=== PATIENT | female | born 1990 | race Caucasian/White ===

== ENCOUNTER 2019-10-02 18:33 | Emergency (ER) | payer OTHER, SELFPAY ==
--- NOTE | ~2019-10-02 | CT_ITS ---
EXAMINATION: CT abdomen pelvis wo con EXAM DATE: 10/02/2019 22:14 INDICATION: Low abdominal, flank pain. TECHNIQUE: Spiral CT of the abdomen and pelvis was performed without contrast. Axial, coronal and sag ittal images were reviewed. The dose-length product (DLP) for this examination was 224.70 mGy-cm. T he exposure was tailored according to patient size (auto mA exposure control), and iterative reconstr uction (ASIR) was used as additional dose reduction technique. There is no prior study for compariso n. FINDINGS: There is no nephrolithiasis or hydronephrosis. The uterus is unremarkable. There is a 4 c m left adnexal lesion, could be hemorrhagic cyst. Consider 6 week follow-up pelvic sonogram. The rene dder is unremarkable. The liver, spleen, adrenal glands and pancreas are unremarkable. Gallbladder is unremarkable. No biliary obstruction. There is no retroperitoneal or pelvic lymphadenopathy. The appendix is normal. The stomach and small bowel are unremarkable. There is expected amount of c olonic stool. No free intraperitoneal gas. The heart is normal in size. There are no pericardial or pleural effusions. The lung bases are unremarkable. The bones are unremarkable. IMPRESSION: 1. No nephrolithiasis, hydronephrosis or acute intra-abdominal findings. 2. Left adnexal fluid density lesion, could be hemorrhagic cyst. Consider 6 week follow-up pelvic so nogram. Reviewed, dictated and finalized at location A. ERAGE SHOP SUPERVISOR IMPRESSION: 1. No nephrolithiasis, hydronephrosis or acute intra-abdominal findings. 2. Left adnexal fluid density lesion, could be hemorrhagic cyst. Consider 6 we ek follow-up pelvic sonogram.
[2019-10-02 18:59] VITALS: BP 144/86; PULSE 102; RESP 16; TEMP 37.4; O2SAT 100
[2019-10-02 20:40] VITALS: BP 126/101; PULSE 108; RESP 20; O2SAT 99
[2019-10-02 21:03] LABS: Basophils Percent Auto 0.4 % (0.2-1.2); Hematocrit 35.3 % (37.0-47.0); Hemoglobin 12.3 g/dL (12.0-15.0); Immature Granulocyte Absolute 0.01 K/mm3 (0.00-0.031); Immature Granulocyte Percent A 0.1 % (0-0.5); Lymphocytes Absolute Auto 1.33 K/mm3 (0.9-3.2); Lymphocytes Percent Auto 18.8 % (18.3-44.2); Mean Corpuscular HGB Conc 34.8 g/dl (32-36); Mean Corpuscular Hemoglobin 33.8 pg (26-34); Mean Platelet Volume 9.4 fl (7.4-10.4); Monocytes Absolute Auto 0.5 K/mm3 (0.1-0.6); Monocytes Percent Auto 7.6 % (2.6-8.5); Neutrophils Absolute Auto 5.2 K/mm3 (1.3-6.7); Neutrophils Percent Auto 73.1 % (45.5-73.1); Platelet Count Result 187 k/mm3 (150-375); Red Blood Count 3.64 M/mm3 (4.2-5.4); Red Cell Distribution Width 12.1 % (11.5-14.5); White Blood Count 7.1 K/mm3 (4.5-10.0)
--- NOTE | 2019-10-02 21:05 | ED.ABDPAIN ---
HPI - Abdominal Pain General Chief Complaint: Abdominal Pain Stated Complaint: mult complaints, dizzy, light headed Time Seen by Provider: 10/02/19 20:54 Source: patient and RN notes reviewed Mode of arrival: ambulatory Limitations: no limitations History of Present Illness HPI narrative: Pt is a 29 y/o female presenting to the ED c/o ABD pain. Pt reports she started experiencing diffuse abdominal pain. Pt describes the pain as sharp and notes it is worsened with movement. Pt also reports dysuria and lt hip pain, but denies N/V or fever. Pt notes she has recurrent UTI's and notes she currently has a lt sided ovarian cyst in which she is scheduled to follow up with Gynecology for. Pertinent past history: other (Lt sided ovarian cyst) Onset (ago): unknown (This afternoon) Location: diffuse Quality: sharp Associated symptoms: dysuria and other (Lt hip pain) Related Data Allergies Allergy/AdvReac Type Severity Reaction Status Date / Time amoxicillin AdvReac Palpitation Verified 10/02/19 20:44 s erythromycin base AdvReac Palpitation Verified 10/02/19 20:44 s Review of Systems Review of Systems: All systems reviewed & are unremarkable except as noted in HPI and below Constitutional: Constitutional: Denies fever(s) Gastrointestinal: Gastrointestinal: Reports abdominal pain (Diffuse), Denies nausea and Denies vomiting Genitourinary: Genitourinary: Reports dysuria Musculoskeletal: Musculoskeletal: Reports other (Lt hip pain) PMFSH Past Medical History Medical History Ovarian cyst, left UTI (urinary tract infection) Surgical History Surgical History No significant past surgical history Social History Social History Smoking status: Unknown if ever smoked Gender identity (if verbalized by the patient): Female Exam Narrative: Exam Narrative: GENERAL: Well-appearing, well-nourished, and in no acute distress. HEAD: Normocephalic, atraumatic. EYES: PERRLA and EOMI. ENT: Nares clear, . Mucous membranes moist. NECK: Supple. CHEST: Clear to auscultation. No respiratory distress. HEART: Regular rate and rhythm. No murmur heard. Normal peripheral pulses. ABDOMEN: Soft, tender in the supra pubic area , non distended, normal active bowel sounds. EXTREMITIES: Normal range of motion. No edema. SKIN: Warm, dry, no rash. NEURO: No focal deficits. Alert and oriented x3. PSYCH: Normal mood and affect. Course Course Emergency Course: Inform patient about her lab work, CT findings. Patient appears to be having chronic interstitial cystitis however she has not been diagnosed. She states that she scheduled to see a urologist in the next few days. She also complains of intermittent vaginal spotting advised her to follow-up with her CREAM BEATER in the next few days. Meanwhile I advised her to take antibiotic for her urinary tract infection Vital Signs Vital signs: Vital Signs Temperature 37.4 C 10/02/19 18:59 Pulse Rate 102 H 10/02/19 18:59 Respiratory Rate 16 10/02/19 18:59 Blood Pressure 144/86 H 10/02/19 18:59 Pulse Oximetry 100 10/02/19 18:59 Temperature 37.4 C 10/02/19 18:59 Pulse Rate 108 H 10/02/19 20:40 Respiratory Rate 20 10/02/19 20:40 Blood Pressure 126/101 H 10/02/19 20:40 Pulse Oximetry 99 10/02/19 20:40 MDM - Abdominal Pain Lab Data Result diagrams: 10/02/19 20:56 10/02/19 20:56 Labs: Lab Results 10/02/19 10/02/19 10/02/19 Range/Units 20:56 20:56 21:09 WBC 7.1 (4.5-10.0) K/mm3 RBC 3.64 L (4.2-5.4) M/mm3 Hgb 12.3 (12.0-15.0) g/dL Hct 35.3 L (37.0-47.0) % MCV 97.0 (80-100) fl MCH 33.8 (26-34) pg MCHC 34.8 (32-36) g/dl RDW 12.1 (11.5-14.5) % Plt Count 187 (150-375) k/mm3 MPV 9.4 (7.4-10.4) fl Immature Gran % (Auto) 0.1 (0-0.5) % Neut % (Auto) 73.
[2019-10-02 21:13] LABS: Alanine Aminotransferase 14 U/L (4-35); Albumin Level 4.2 g/dL (3.5-5.1); Alkaline Phosphatase 38 U/L (38-126); Aspartate Amino Transferase 26 U/L (14-36); Bilirubin,Total 0.6 mg/dL (0.2-1.3); Blood Urea Nitrogen 9 mg/dL (7-17); Calcium 8.9 mg/dL (8.4-10.2); Carbon Dioxide 24 mmol/L (22-30); Chloride 105 mmol/L (98-107); Estimated CRCL calculation 68 ml/min; Estimated Glomerular Filt Rate > 60; Glucose 95 mg/dL (65-105); Potassium 3.5 mmol/L (3.4-5.0); Sodium 132 mmol/L (137-145)
[2019-10-02 21:29] LABS: Add Urine Microscopic? YES; Appearance Urine Cloudy (Clear); Bilirubin Urine Negative (Negative); Blood Urine 3+ (Negative); Calcium Oxalate Crystals Urine Present /hpf; Color Urine Yellow (Yellow); Glucose Urine UA Negative (Negative); Ketones Urine 1+ mg/dL (Negative); Leukocyte Esterase Ur 1+ LEU/UL (Negative); Mucus Urine Heavy /lpf; Nitrate Urine Negative (Negative); Protein Urine 2+ mg/dL (Negative); RBC Urine >75 /hpf (0-2); Specific Grav Ur 1.029 (1.001-1.035); Squamous Epithelial Cell Urine Many /hpf (Few); Urobilinogen Urine Negative mg/dL (<2.0); WBC Clumps Urine Present /HPF; WBC Urine >75 /hpf
[2019-10-02 23:11] VITALS: BP 130/70; PULSE 104; RESP 16; O2SAT 99
== END 2019-10-02 23:13 | disposition home or self-care (01) ==
PROVIDERS: Emergency Medicine; Emergency Provider Family Medicine
DX: N30.01 Acute cystitis with hematuria (principal)
CPT/HCPCS: 36415; 74176; 80053; 81001; 81025; 85025; 87086; 87088; 99284

== ENCOUNTER 2021-01-17 16:44 | Emergency (ER) | payer OTHER, SELFPAY ==
--- NOTE | ~2021-01-17 | US_ITS ---
EXAMINATION: US pelvic complete w TV DATE: 01/17/2021 17:26 INDICATION: Abdominal pain. TECHNIQUE: Multiple transabdominal and transvaginal sonographic images of the pelvis were obtained. COMPARISON: CT abdomen and pelvis 10/02/2019 FINDINGS: TRANSABDOMINAL ULTRASOUND: The uterus measures 5.6 x 2.8 x 3.7 cm. There is no free fluid in the pelvis. TRANSVAGINAL ULTRASOUND: The endometrial complex measures 8 mm in thickness. The right ovary measures 4.8 x 3.2 x 2.8 cm. Ther e are 2 cysts in the right ovary with the larger measuring 3.1 cm. The left ovary measures 1.7 x 1.3 x 1.4 cm. There is normal vascular flow in the ovaries. IMPRESSION: 1. Right ovarian cysts, likely follicular cysts. Reviewed, dictated and finalized at location A.
[2021-01-17 16:51] VITALS: BP 131/96; PULSE 117; RESP 14; TEMP 38; O2SAT 100
[2021-01-17 17:12] LABS: Basophils Percent Auto 0.3 % (0.2-1.2); Eosinophils Percent Auto 0.3 % (0-4.4); Hematocrit 39.8 % (37.0-47.0); Hemoglobin 13.5 g/dL (12.0-15.0); Immature Granulocyte Absolute 0.02 K/mm3 (0.00-0.031); Immature Granulocyte Percent A 0.3 % (0-0.5); Lymphocytes Absolute Auto 2.37 K/mm3 (0.9-3.2); Lymphocytes Percent Auto 34.7 % (18.3-44.2); Mean Corpuscular HGB Conc 33.9 g/dl (32-36); Mean Corpuscular Hemoglobin 33.8 pg (26-34); Mean Corpuscular Volume 99.5 fl (80-100); Mean Platelet Volume 8.9 fl (7.4-10.4); Monocytes Absolute Auto 0.6 K/mm3 (0.1-0.6); Monocytes Percent Auto 8.1 % (2.6-8.5); Neutrophils Absolute Auto 3.9 K/mm3 (1.3-6.7); Neutrophils Percent Auto 56.3 % (45.5-73.1); Platelet Count Result 209 k/mm3 (150-375); Red Cell Distribution Width 12.4 % (11.5-14.5); White Blood Count 6.8 K/mm3 (4.5-10.0)
[2021-01-17 17:25] LABS: Alanine Aminotransferase 14 U/L (4-35); Albumin Level 4.5 g/dL (3.5-5.1); Alkaline Phosphatase 38 U/L (38-126); Anion Gap 7 mmol/L (8-16); Aspartate Amino Transferase 23 U/L (14-36); Bilirubin,Total 0.5 mg/dL (0.2-1.3); Blood Urea Nitrogen 9 mg/dL (7-17); Calcium 9.4 mg/dL (8.4-10.2); Carbon Dioxide 25 mmol/L (22-30); Chloride 108 mmol/L (98-107); Estimated CRCL calculation 70 ml/min; Estimated Glomerular Filt Rate > 60; Glucose 95 mg/dL (65-105); Lipase 69 U/L (23-300); Potassium 3.8 mmol/L (3.4-5.0); Sodium 140 mmol/L (137-145)
[2021-01-17 17:42] LABS: Add Urine Microscopic? YES; Appearance Urine Clear (Clear); Bilirubin Urine Negative (Negative); Blood Urine Negative (Negative); Color Urine Yellow (Yellow); Glucose Urine UA Negative (Negative); Ketones Urine 1+ mg/dL (Negative); Leukocyte Esterase Ur 2+ LEU/UL (Negative); Mucus Urine Few /lpf; Nitrate Urine Negative (Negative); Protein Urine Negative (Negative); RBC Urine 0-2 /hpf (0-2); Squamous Epithelial Cell Urine Few /hpf (Few); Urobilinogen Urine Negative mg/dL (<2.0)
[2021-01-17 19:35] VITALS: BP 141/91; PULSE 89; RESP 13; TEMP 36.9; O2SAT 98
--- NOTE | 2021-01-17 19:37 | ED.ABDPAIN ---
HPI - Abdominal Pain General Chief Complaint: Abdominal Pain Stated Complaint: Abd Pain Time Seen by Provider: 01/17/21 19:20 Source: patient Mode of arrival: ambulatory Limitations: no limitations History of Present Illness HPI narrative: Patient is a 30-year-old female complaining of right lower quadrant pain that started 3 days ago. Patient states her pain is a 6 out of 10, aching, nonradiating. Patient was seen at another hospital yesterday had labs and CT scan of her abdomen pelvis done, was told that she had an ovarian cyst and she is to follow-up with her MACHINE PRESSER for an ultrasound. Patient was presscribed hydrocodone for pain. Patient called her GYROSCOPE TECHNICIAN today and was told to go to the emergency room to have an ultrasound done for possible hemorrhagic cyst , which the patient states that she has a history of. Related Data Home Medications Medication Instructions Recorded Confirmed No Home Medications 01/17/21 01/17/21 Allergies Allergy/AdvReac Type Severity Reaction Status Date / Time amoxicillin AdvReac Palpitation Verified 01/17/21 19:53 s erythromycin base AdvReac Palpitation Verified 01/17/21 19:53 s Review of Systems Review of Systems: All systems reviewed & are unremarkable except as noted in HPI and below Constitutional: Constitutional: Denies body ache(s), Denies chills, Denies excessive sweating, Denies fatigue, Denies fever(s), Denies headache(s), Denies lethargy, Denies malaise, Denies weakness and Denies weight loss Eyes: Eyes: Denies blurry vision, Denies change in vision and Denies loss of vision ENT: Denies dizziness, Denies ear discharge, Denies headache(s), Denies lip swelling, Denies epistaxis, Denies nasal congestion, Denies neck pain, Denies throat swelling and Denies tongue swelling Cardiovascular: Cardiovascular: Denies chest pain, Denies chest pain at rest, Denies chest pain with activity, Denies diaphoresis, Denies rapid heart rate, Denies edema, Denies irregular heart rhythm, Denies lightheadedness, Denies palpitations, Denies dyspnea and Denies dyspnea on exertion Respiratory: Respiratory: Denies chest congestion, Denies cough, Denies hemoptysis, Denies dyspnea and Denies dyspnea on exertion Gastrointestinal: Gastrointestinal: Denies abdominal pain, Denies melena, Denies hematochezia, Denies diarrhea, Denies nausea, Denies vomiting and Denies hematemesis Musculoskeletal: Musculoskeletal: Denies abnormal gait, Denies deformity, Denies joint swelling, Denies limited range of motion, Denies neck pain and Denies numbness Neurologic: Denies Abnormal speech present, Denies abnormal gait, Denies confusion, Denies dizziness, Denies headache(s), Denies focal weakness, Denies loss of vision, Denies numbness, Denies Other visual disturbances, Denies Sensory deficit (Neuro) and Denies weakness Psychiatric: Psychiatric: Denies confusion, Denies depression, Denies auditory hallucinations, Denies homicidal ideation and Denies suicidal ideation Endocrine: Endocrine: Denies cold intolerance, Denies excessive sweating, Denies fatigue, Denies heat intolerance and Denies palpitations Hematologic/Lymphatic: Hematologic/Lymphatic: Denies easy bleeding and Denies easy bruising Allergic/Immunologic: Allergic/Immunologic: Denies lip swelling, Denies throat swelling and Denies tongue swelling PMFSH Past Medical History Medical History Anxiety Arthritis Congestion of nasal sinus Diarrhea History of hysteroscopy Intractable heel pain Ovarian cyst, left Seasonal allergies SVT (supraventricular tachycardia) UTI (urinary tract infection) Wears glasses Surgical History Surgical History History of foot surgery bilateral shockwave tx, 2017 History of laparoscopy 2019, 2020 History of prior ablation treatment AVRNT and Atrial Flutter 2015 Family History Family History (Reviewed 01/17/21 @
[2021-01-17 20:06] LABS: Lactic Acid Reflex 0.7 mmol/L (0.7-2.1)
[2021-01-17 20:46] VITALS: BP 114/75; PULSE 95; RESP 13; O2SAT 100
== END 2021-01-17 20:47 | disposition home or self-care (01) ==
PROVIDERS: Emergency Medicine; Emergency Provider Emergency Medicine
DX: N83.201 Unspecified ovarian cyst, right side (principal); Z87.440 Personal history of urinary (tract) infections
CPT/HCPCS: 36415; 76830; 76856; 80053; 81001; 81025; 83605; 83690; 85025; 99284

== ENCOUNTER 2021-02-07 15:46 | Emergency (ER) | payer OTHER, SELFPAY ==
--- NOTE | ~2021-02-07 | CT_ITS ---
EXAMINATION: CT foot LT wo con EXAM DATE: 02/07/2021 17:20 INDICATION: Left foot and ankle large pain, tingling. Unable to weight-bear, flex. No known recent in jury provided at this time. TECHNIQUE: Spiral CT foot LT was performed without contrast. Axial, coronal and sagittal images wer e reviewed. The dose-length product (DLP) for this examination was 449.82 mGy-cm. The exposure was tailored according to patient size (auto mA exposure control), and iterative reconstruction (ASIR) wa s used as additional dose reduction technique. There is no prior study for comparison. FINDINGS: Ankle, subtalar and midfoot joints are unremarkable. There are no bony erosions identified . There are no acute left ankle, foot fractures or dislocations identified. There is no subcutaneo us gas. The soft tissue is unremarkable, no evidence of abscess. There are no radiopaque foreign b odies. Impression: Unremarkable left foot CT exam. Reviewed, dictated and finalized at location A. Impression: Unremarkable left foot CT exam.
[2021-02-07 16:12] VITALS: BP 148/94; PULSE 111; RESP 20; TEMP 37.4; O2SAT 100
--- NOTE | 2021-02-07 18:00 | PC.NURSE ---
Pt independently ambulating to nurse's desk, stating that she is unable to bear weight on left foot. Asking for MRI to be done today, explained that is not able to be performed at this time. Pt asking same question multiple times regarding MRI.
--- NOTE | 2021-02-07 18:04 | ED.LOWEXIN ---
HPI - Extremity Injury (Lower) General Chief Complaint: Extremity Injury, Lower Stated Complaint: foot pain Time Seen by Provider: 02/07/21 16:20 History of Present Illness HPI Narrative: Patient is a 30-year-old female who presents ER with left foot pain. It is over the medial malleolus posteriorly as well as over the metatarsal heads plantar aspect. No recent injury. Has been hurting for several months. She saw reinforcing metal worker and then followed up with orthopedic surgery. Patient made the mistake of canceling her MRI because she wanted it to be ordered by the orthopedic foot surgeon and so the reinforcing metal worker. Apparently the orthopedic surgeon was only providing a second opinion not an actual treatment plan which changes how insurance covers things. Thus she is missed scheduled her MRI and is later this month. Patient does not want to wait for this MRI because she reports her pain is continuing to increase. Her reinforcing metal worker recommend she come here to obtain a CT scan to make sure there are no additional fractures have not been seen on x-ray. Patient has no new fevers or chills or sweats. No new trauma. No functional deficit but does get some numbness when she crosses her leg. Related Data Allergies Allergy/AdvReac Type Severity Reaction Status Date / Time amoxicillin AdvReac Palpitation Verified 02/07/21 16:40 s erythromycin base AdvReac Palpitation Verified 02/07/21 16:40 s Review of Systems Review of Systems: All systems reviewed & are unremarkable except as noted in HPI and below Constitutional: Constitutional: Denies chills, Denies fever(s) and Denies weakness Musculoskeletal: Musculoskeletal: Denies arthralgias, Denies joint swelling and Denies muscle cramps Neurologic: Denies focal weakness and Reports numbness PMFSH Past Medical History Medical History Anxiety Arthritis Congestion of nasal sinus Diarrhea History of hysteroscopy Intractable heel pain Ovarian cyst, left Seasonal allergies SVT (supraventricular tachycardia) UTI (urinary tract infection) Wears glasses Surgical History Surgical History History of foot surgery bilateral shockwave tx, 2017 History of laparoscopy 2019, 2020 History of prior ablation treatment AVRNT and Atrial Flutter 2015 Family History Family History Other Arthritis Social History Social History Smoking status: Never smoker Alcohol intake: never Substance use: never Substance use type: does not use Gender identity (if verbalized by the patient): Female Exam Narrative: Exam Narrative: GENERAL: Well-appearing, well-nourished, and in no acute distress. HEAD: Normocephalic, atraumatic. CHEST: Clear to auscultation. No respiratory distress. HEART: Regular rate and rhythm. Normal peripheral pulses. ABDOMEN: Soft, nontender, nondistended. EXTREMITIES: Normal range of motion. No edema. No reproducible tenderness over the metatarsal heads or plantar fascia or calcaneus of the left foot. There is mild discomfort posterior to the medial malleolus without swelling redness. Normal dorsalis pedis and posterior tibial pulses. SKIN: Warm, dry, no rash. NEURO: No focal deficits. Alert and oriented x3. PSYCH: Normal mood and affect. Course Course Emergency Course: Patient informed of results. Discharge home. Recommend she obtain her outpatient MRI. Continue to wear walking boot. Vital Signs Vital signs: Vital Signs Temperature 99.3 F 02/07/21 16:12 Pulse Rate 111 H 02/07/21 16:12 Respiratory Rate 20 02/07/21 16:12 Blood Pressure 148/94 H 02/07/21 16:12 Pulse Oximetry 100 02/07/21 16:12 Temperature 99.3 F 02/07/21 16:12 Pulse Rate 111 H 02/07/21 16:12 Respiratory Rate 20 02/07/21 16:12 Blood Pressure 148/94
[2021-02-07 18:35] VITALS: BP 126/82; PULSE 78; RESP 18; TEMP 36.7; O2SAT 100
== END 2021-02-07 18:35 | disposition home or self-care (01) ==
PROVIDERS: Emergency Provider Emergency Medicine
DX: M79.672 Pain in left foot (principal); G89.29 Other chronic pain; F41.9 Anxiety disorder, unspecified; M19.90 Unspecified osteoarthritis, unspecified site
CPT/HCPCS: 73700; 99284

== ENCOUNTER → 2022-09-14 10:52 | Outpatient (CLI) | payer BC, SELFPAY ==
--- NOTE | ~2022-09-14 | US_ITS ---
EXAMINATION: US pelvic complete w TV DATE: 09/14/2022 12:20 INDICATION: Pelvic pain TECHNIQUE: Multiple transabdominal and endovaginal sonographic images of the pelvis were obtained. COMPARISON: 01/17/2021 FINDINGS: The uterus measures 6.2 x 3.1 x 3.5 cm. The endometrial complex measures 3-4 mm in thickness. The ri ght ovary measures 2.8 x 1.9 x 2.2 cm. The left ovary measures 2.3 x 1.7 x 1.1 cm. Vascular flow iden tified in both ovaries on color Doppler. Small follicles at both ovaries, the largest measuring 11 mm the right ovary. There is no free fluid in the pelvis. IMPRESSION: 1. Normal pelvic ultrasound. Reviewed, dictated and finalized at location A. RONMENTAL AIDE
--- NOTE | ~2022-09-14 | US_ITS ---
EXAMINATION: US abdomen complete DATE: 09/14/2022 11:20 INDICATION: Pelvic pain. TECHNIQUE: Multiple grayscale and Doppler ultrasound images of the abdomen were obtained. COMPARISON: CT abdomen and pelvis 10/02/2019 FINDINGS: Abdominal aorta is normal in caliber. Inferior vena cava is normal. The visualized portions of the head, body, and tail of the pancreas are normal. There is a 4 hyperechoic masses in the liver measuring up to 2.6 cm. There is normal flow in main portal vein. The gallbladder is normal in size. No gallstones or gallbladder wall thickening. There is no sonographic Pascal sign. The common duct i s normal and measures 5 mm. The spleen is normal in size. The kidneys are normal in size. IMPRESSION: 1. Four hyperechoic liver masses measuring up to 2.6 cm. In the absence of known malignancy or chroni c liver disease, these findings are likely benign masses such as hemangiomas. Reviewed, dictated and finalized at location A. ISSARY HELPER IMPRESSION: 1. Four hyperechoic liver masses measuring up to 2.6 cm. In the absence of know n malignancy or chronic liver disease, these findings are likely benign masses such as hemangiomas.
== END ==
PROVIDERS: Visit Provider Obstetrics & Gynecology
DX: R10.2 Pelvic and perineal pain (principal)
CPT/HCPCS: 76700; 76830; 76856

== ENCOUNTER 2024-12-24 13:29 | Outpatient (CLI) | payer BC, SELFPAY ==
--- OUTSIDE RECORDS SUMMARY | 2024-12-24 13:37 | XMS_ITS | Encounter Summary ---
Author Organization [facility] Address [address] [place] [address] Care Team Providers Care Public Information Director Name Role Phone Kenneth Lares MD Primary Care Provider + Isela Menendez NP Primary Care Provider [phone] Reason for Visit * Reason Onset Date Comments PCP Callback Request - Patient 06/10/2024 pls call referring doctor 06/10/2024 Encounter Details Date Type Department Care Team (Late st Contact Info) Description 06/10/2024 Telephone [facility] [address] [facility] [address] [place] [address] Francisca Olson MD PhD [address] [facility] [address] [facility] [phone] [place] [address] PCP Callback Request - Patient; pls call referring doctor Social History Tobacco Use Types Packs/Day Years Used Date Smoking Tobacco: Never Smokeless Tobacco: Never Alcohol Use Standard Drinks/Week Comments Yes 0 (1 standard drink = 0.6 oz pur e alcohol) AUDIT-C Answer Date Recorded Q1: How often do you have a drink containing alc ohol? Monthly or less 03/17/2024 Average Number of Drinks Not on file 024 Frequency of Binge Drinking Not on file 02/27 PHQ-2 Answer Date Recorded PHQ-2 Total Score (If total score is 3 or more points, staff should administer the PHQ-9) 0 06/29/2021 Personal Safety Answer Date Recorded Have you ever been in or are you currently in a harmful physical or emotional relationship or is someone making you feel afraid or unsafe? Denies 04/13/2024 Comments No Sex and Gender Information Value Date Recorded Sex Assigned at Not on file Legal Sex Female 8:52 PM AUTO SALVAGE WORKER Gender Identity Female 07/01/2022 1:00 PM AUTO SALVAGE WORKER Sexual Orientation Straight 07/01/2022 1: 00 PM AUTO SALVAGE WORKER documented as of this encounter Plan of Treatment Not on file documented as of this encounter Goals Goal Patient Goal Type Associated Problems Recent Progress Patient-Stated? Author CCM Chronic Pain Care Plan Chronic Care Management No Rhina Fofana RN Note: Problem: Chronic Pain Goals: 1. Minimize further functional decline 2. Maximize quality of life 3. Control pain Strategies: - Activity/exercise program recommendation - Conservative stepwise pain medicine strategy with multi-disciplinary approach - Recommend healthy lifestyle strategies and compensatory methods as needed documented as of this encounter Visit Diagnoses Not on filedocumented in this encounter Care Teams Public Information Director Relationship Specialty Start Date End Date Kenneth Lares MD [address] [address] PCP - General Internal Medicine 11/27/22 10/29/24 Isela Menendez [place] [place] [address] PCP - General Referral Clerk 10/30/24 documented as of this encounter
--- OUTSIDE RECORDS SUMMARY | 2024-12-24 13:37 | XMS_ITS | Data Portability ---
Author Organization ID - [facility] OFFICE Address [address] [place] [address] Care Team Providers Care Sealer Aircraft Name Role Phone DELFINA CRUZ Primary Care Provider Unavailabl e DELFINA CRUZ Referring Provider Unavailable Assessment No assessment recorded. Plan of Treatment Reminders Order Date Submit Date Provider Last Modified By Organization Details Last Modified Time Details Appointments None recorded . Lab None recorded . Referral None recorded . Procedures None recorded . Surgeries None recorded . Imaging electroc ardiogra m 2019 020 [email or web address] Not available 0 11:04:24 electroc ardiogra m 2018 019 GIULIA Not available 0 08:18:44 Medication Orders metoprol ol tartrate 25 mg tablet 2018 019 [email or web address] Not available 0 15:42:04 Patient TargetsNo targets recorded. Patient Instructions Encounter Date Encounter Id Patient Instructions Last Modified By Organization Details Last Modified Time 07/02/2019 [id number] supraventricular tachycardia: care instructions [email or web address] Not available 07/02/2019 17:24:29 hypokalemia: car e instructions [email or web address] Not available 07/02/2019 17:26:05 08/04/2019 [id number] supraventricular tachycardia: care instructions [email or web address] Not available 10/16/2019 11:04:24 hypokalemia: car e instructions [email or web address] Not available 10/16/2019 11:04:24 Exercise advised Low cholesterol diet advised Low sodium diet advised Not available 08/04/2019 12:57:26 Scribed by Ann-Marie Johnson PA-C Not available 08/04/2019 12:57:49 03/17/2020 [id number] supraventricular tachycardia: care instructions [email or web address] Not available 03/17/2020 15:46:16 hypokalemia: car e instructions Not available 03/17/2020 15:46:16 Exercise advised Low cholesterol diet advised Low sodium diet advised Not available 03/17/2020 15:45:38 Scribed by Kirby Romero PSYCHIATRY INSTRUCTOR-BC [email or web address] Not available 03/17/2020 15:46:04 06/02/2020 [id number] supraventricular tachycardia: care instructions [email or web address] Not available 06/02/2020 11:41:01 hypokalemia: car e instructions [email or web address] Not available 06/02/2020 11:41:01 Exercise advised Low cholesterol diet advised Low sodium diet advised. [email or web address] Not available 06/02/2020 10:24:36 Scribed by Kilo Moran, MSN, DATA PROCESSING MANAGER, PSYCHIATRY INSTRUCTOR-C [email or web address] Not available 06/02/2020 10:14:02 Reason for Referral None Reported. Results Created Date Observation Date Name Description Value Unit Range Abnormal Flag Note LastModifiedBy Organization Detail LastModifiedTime 07/08/20 19 06/12/2019 XR, chest , 1 view No observ ation record ed. [email or web address] Not Available 2018 17:23:54 07/10/20 19 06/18/2019 elect rocar diogr am No observ ation record ed. [email or web address] Not Available 2018 09:31:41 07/10/20 19 07/02/2019 elect rocar diogr am No observ ation record ed. [email or web address] Not Available 2018 14:01:22 07/23/20 19 06/18/2019 elect rocar diogr am No observ ation record ed. [email or web address] Not Available 2018 13:28:17 08/04/19 20 08/04/2019 elect rocar diogr am No observ ation record ed. [email or web address] Not Available 2019 14:51:24 08/27/19 20 08/10/2019 carmen r monit or No observ ation record ed. [email or web address] Not Available 08/27 13:45:27 08/28/19 20 08/08/2019 US, echoc ardio gram No observ ation record ed. [email or web address] Not Available 2019 08:51:35 08/28/19 20 08/09/2019 elect rocar diogr am No observ ation record ed. [email or web address] Not Available 2019 17:28:36 09/25/19 20 08/09/2019 XR, chest No observ ation record ed. [email or web address] Not Available 09/27 17:27:23 03/22/20 20 01/21/2020 stres s echoc ardio gram (PROC ) No observ ation record ed. [email or web address] Not Available 2019 11:54:09 03/24/20 20 03/17/2020 elect rocar diogr am No observ ation record ed. [email or web address] Not Available 2019 13:06:54 03/24/20 20 03/11/2020 XR, chest , 1 view No observ ation record ed. [email or web address] Not Available 2019 14:24:44 06/02/20 20 05/31/2020 [facility] No observ ation record ed. [email or web address] Not Available 2019 13:15:12 06/02/20 20 05/27/2020 CT, abdom en, w/o contr ast No observ ation record ed. [email or web address] Not Available 2019 05:16:36 06/02/20 20 06/02/2020 elect rocar diogr am No observ ation record ed. [email or web address] Not Available 2019 13:30:35 06/02/20 20 03/24/2020 [facility] No observ ation record ed. [email or web address] Not Available 2019 13:32:06 06/02/2006/27/2020 XR, chest No observ ation record ed. [email or web address] Not Available 2019 05:17:36 06/06/20 20 05/27/2020 CT, abdom en + pelvi s, w/o contr ast No observ ation record ed. [email or web address] Not Available 2019 11:58:04 06/06/2005/31/2020 XR, chest , 1 view No observ ation record ed. [email or web address] Not Available 2019 11:08:20 06/06/20 20 05/31/2020 elect rocar diogr am No observ ation record ed. [email or web address] Not Available 2019 11:51:23 06/06/20 20 06/02/2020 elect rocar diogr am No observ ation record ed. [email or web address] Not Available 2019 11:52:04 06/06/20 20 03/24/2020 elect rocar diogr am No observ ation record ed. [email or web address] Not Available 2019 11:53:57 08/02/19 21 07/31/2020 elect rocar diogr am No observ ation record ed. Not Available 08/03 09:47:10 08/02/19 21 07/31/2020 [facility] No observ ation record ed. [email or web address] Not Available 08/03 09:48:01 08/04/19 [facility]ion record ed. [email or web address] Not Available 2020 10:47:10 08/09/19 21 rhyth m strip * No observ ation record ed. Not Available 2020 12:41:45 Result Notes Documentation Provider Name and Address Organization Details Recorded Time Cmp, Serum Or Plasma : 06/01/20:Na 139,K 3.6,Cl 108,CO2 26.8,GLU 86,BUN 8,Cr 0.8,AST 11,ALT 18 . Ana poe [facility] 06/04/2020 13:08:33 Cbc W/ Diff : 05/31/20:WBC 4.7,RBC 7.1,HGB 14.0,HCT 40.2,PLT 226. Ana poe [facility] 06/05/2020 05:21:02 Ct, Abdomen, W/o Contrast : CT, Abdomen, W/o Contrast 05/27/20:no acute abdominal findings.no urolithiasis. Ana poe [facility] 06/05/2020 05:16:36 Xr, Chest : XR, Chest 05/31/20:no cardiopulmonary disease. [facility] 06/05/2020 05:17:36 Cmp, Serum Or Plasma : 05/31/20:Na 137,K 3.8,Cl 103,CO2 25,GLU 106,BUN 8,Cr 0.7,AST 16,ALT 14. [facility] 06/05/2020 05:21:02 Cbc W/ Diff : 06/01/20:WBC 6.0,RBC 3.74,HGB 13.0,HCT 37.2,PLT 224. [facility] 06/05/2020 05:21:02 Problems Name Problem SNOMED Code Status Onset Date Resolution Date Notes Provider Name and Address Organization Details Recorded Time Supraventricul ar tachycardia 2873904 Active 2018 [facility] 9 16:52:53 Sinus tachycardia 50759780 Active 2018 [facility] 9 17:22:22 Hypokalemia 58015373 Active 2018 [facility] 9 17:25:17 Inappropriate sinus tachycardia 337122983 Active 2019 Ana France [facility] 0 12:33:12 Problem Notes None recorded. Medical Equipment None Reported. Allergies Allergen ID Allergen Name Allergen Category Reaction Reaction Severity Criticality Documentation Date Start Date Code Code System Note Provider Name and Address Organization Details Recorded Time 9244 erythromy alethea medicatio n bradycard ia severe Not available 07/02/2019 4053 RxNorm high blood press ure Yazmin Joann [facility] 9 16:30:05 9245 clavulani c acid Not available bradycard ia Not available Not available 07/02/2019 32688 RxNorm Yazmin Joann [facility] 9 16:30:33 Medications Name Sig Start Date Stop Date Status Note LastModified by Organization Details LastModified Time cyclobenza hao 10 mg tablet active Not Available Not Available No t Available medroxypro gesterone 10 mg tablet 03/17 completed pt not taking 03/17/20 Not Available Not Available Not Available acetaminop hen 325 mg tablet PRN active Not Available Not Available Not Available doxycyclin e hyclate 100 mg capsule 03/17 completed pt not taking 03/17/20 Not Available Not Available Not Available cefadroxil 250 mg/5 mL oral suspension 07/02 completed Not Available Not Available Not Available loperamide 2 mg capsule active Not Available Not Available Not Available ibuprofen 800 mg tablet PRN 03/17 completed pt not taking 03/17/20 Not Available Not Available Not Available fluconazol e 150 mg tablet 07/02 completed Not Available Not Available Not Available acetaminop hen 120 mg-codeine 12 mg/5 mL oral solution 07/02 completed Not Available Not Available Not Available metoprolol succinate ER 50 mg tablet,ext ended release 24 hr TAKE 1 TABLET BY MOUTH ONCE DAILY active Not Available Not Available No t Available amoxicilli n 250 mg-potassi um clavulanat e 62.5 mg/5 mL oral suspension 07/02 completed Not Available Not Available Not Available phenazopyr idine 200 mg tablet 07/02 completed Not Available Not Available Not Available metronidaz ole 0.75 % (37.5 mg/5 gram) vaginal gel 07/02 completed Not Available Not Available Not Available ondansetro n HCl 4 mg tablet active Not Available Not Available Not Available prednisone 20 mg tablet 08/04 completed Not Available Not Available Not Available metronidaz ole 500 mg tablet 03/17 completed pt not taking 03/17/20 Not Available Not Available Not Available ciprofloxa alethea 500 mg tablet 03/17 completed pt not taking 03/17/20 Not Available Not Available Not Available sulfametho xazole 800 mg-trimeth oprim 160 mg tablet 03/17 completed pt not taking 03/17/20 Not Available Not Available Not Available ondansetro n 8 mg disintegra ting tablet 07/02 completed Not Available Not Available Not Available ketorolac 10 mg tablet active Not Available Not Available Not Available pantoprazo le 20 mg tablet,del ayed release 07/02 completed Not Available Not Available Not Available amoxicilli n 400 mg-potassi um clavulanat e 57 mg/5 mL oral suspension 07/02 completed Not Available Not Available Not Available meloxicam 7.5 mg tablet 07/02 completed Not Available Not Available Not Available lorazepam 0.5 mg tablet 07/02 completed Not Available Not Available Not Available Vanicream topical 03/17 completed pt not taking 03/17/20 Not Available Not Available Not Available dicyclomin e 20 mg tablet active Not Available Not Available Not Available baclofen 10 mg tablet 08/04 completed Not Available Not Available Not Available benzonatat e 100 mg capsule 08/04 completed Not Available Not Available Not Available cephalexin 500 mg capsule 06/01 completed Not Available Not Available Not Available cephalexin 250 mg/5 mL oral suspension 07/02 completed Not Available Not Available Not Available triamcinol one acetonide 0.1 % topical ointment 07/02 completed Not Available Not Available Not Available hyoscyamin e 0.125 mg sublingual tablet 07/02 completed Not Available Not Available Not Available lidocaine 5 % topical patch 07/02 completed Not Available Not Available Not Available Ear Drops (carbamide peroxide) 6.5 % active Not Available Not Available Not Available sertraline 25 mg tablet 07/02 completed Not Available Not Available Not Available mupirocin 2 % topical ointment 08/04 completed Not Available Not Available Not Available metoprolol succinate ER 25 mg tablet,ext ended release 24 hr TAKE 1 2 (ONE HALF) TABLET BY MOUTH ONCE DAILY active Not Available Not Available No t Available Cardizem CD 120 mg capsule,ex tended release active Not Available Not Available Not Available acebutolol 200 mg capsule active Not Available Not Available Not Available oxaprozin 600 mg tablet active Not Available Not Available Not Available ibuprofen 100 mg/5 mL oral suspension 08/04 completed Not Available Not Available Not Available diltiazem 30 mg tablet 03/17 completed pt not taking 03/17/20 Not Available Not Available Not Available ondansetro n 4 mg disintegra ting tablet active Not Available Not Available Not Available diltiazem 60 mg tablet 03/17 completed pt not taking 03/17/20 Not Available Not Available Not Available fluticason e propionate 50 mcg/actuat ion nasal spray,susp ension 08/04 completed Not Available Not Available Not Available amoxicilli n 875 mg-potassi um clavulanat e 125 mg tablet 07/02 completed Not Available Not Available Not Available cyclobenza hao 5 mg tablet 03/17 completed pt not taking 03/17/20 Not Available Not Available Not Available Ciprodex 0.3 %-0.1 % ear drops,susp ension active Not Available Not Available Not Available metoprolol tartrate 25 mg tablet Take 0.5 tablets twice a day by oral route as directed . active Not Available Not Available No t Available hydrocodon e 7.5 mg-acetami nophen 325 mg/15 mL oral solution 03/17 completed pt not taking 03/17/20 Not Available Not Available Not Available nitrofuran toin monohydrat e/macrocry stals 100 mg capsule 07/02 completed Not Available Not Available Not Available [place] Sinus Rinse with packet 08/04 completed Not Available Not Available Not Available Fish Oil OD 03/17 completed pt not taking 03/17/20 Not Available Not Available Not Available ProAir HFA 90 mcg/actuat ion aerosol inhaler PRN active Not Available Not Available Not Available Voltaren 1 % topical gel active Not Available Not Available Not Available Probiotic 1-2 times daily active Not Available Not Available No t Available [facility] Pain [facility] Fever Relief 160 mg/5 mL oral suspension 08/04 completed Not Available Not Available Not Available lidocaine 5 % topical ointment 03/17 completed pt not taking 03/17/20 Not Available Not Available Not Available Robafen DM Cough 10 mg-100 mg/5 mL oral liquid 08/04 completed Not Available Not Available Not Available Vitals Date Recorded Body height Body mass index (BMI) Body weight Heart rate Oxygen saturation Oxygen saturation in Arterial blood by Pulse oximetry Systolic blood pressure Diastolic blood pressure Provider Name and Address Organization Details Last Updated DateTime 0 152.4 cm 24.4 kg/m2 04508.0 5 g 114 /min 99 % 99 % 140 mm[Hg] 80 mm[Hg] JENA RAYA [place] [facility] 0 12:34:47 Date Recorded Body height Body mass index (BMI) Body weight Heart rate Respiratory rate Oxygen saturation Oxygen saturation in Arterial blood by Pulse oximetry Provider Name and Address Organization Details Last Updated DateTime 0 152.4 cm 24.4 kg/m2 33510.0 5 g 105 /min 18 /min 99 % 99 % Brandee Jones [facility] 0 15:24:04 Date Recorded Systolic blood pressure Diastolic blood pressure Provider Name and Address Organization Details Last Updated DateTime 03/17/2020 98 mm[Hg] 62 mm[Hg] Melissa Peterson PSYCHIATRY INSTRUCTOR-BC [facility] 03/17/2020 15:44:20 Date Recorded Body height Body mass index (BMI) Body weight Respiratory rate Heart rate Oxygen saturation Oxygen saturation in Arterial blood by Pulse oximetry Systolic blood pressure Diastolic blood pressure Provider Name and Address Organization Details Last Updated DateTime 0 152.4 cm 22.7 kg/m2 05734.7 1 g 18 /min 98 /min 98 % 98 % 122 mm[Hg] 76 mm[Hg] RUPESH RUY [facility] 0 10:14:51 Date Recorded Body height Body mass index (BMI) Body weight Heart rate Oxygen saturation Oxygen saturation in Arterial blood by Pulse oximetry Systolic blood pressure Diastolic blood pressure Provider Name and Address Organization Details Last Updated DateTime 9 152.4 cm 24.5 kg/m2 08705.8 4 g 108 /min 99 % 99 % 110 mm[Hg] 80 mm[Hg] Yazmin Joann [facility] 9 16:26:54 Social History Question Answer Notes LastModified by [facility] Details LastModified Time Tobacco Smoking Status Never Smoker Not Available [facility] 05/31/2020 03:30:42 Marital Status michelle [place] n not available 07/02/2019 What Was The Date Of Your Most Recent Tobacco Screening? 08/04/2019 [id number] Information not available 05/31/2020 How Many Children Do You Have? 0 [id number] Information not available 05/31/2020 How Much Tobacco Do You Smoke? No [id number] Information not available 05/31/2020 How Many Years Have You Smoked Tobacco? 0 [id number] Information not available 05/31/2020 Sex: Unknown Functional Status Question Answer Note LastModified by [employer] Details LastModified Time Do you or have you ever used smokeless tobacco? Never used smokeless tobacco [id number] Information not available 05/31/2020 Do you or have you ever used e-cigarettes or vape? Never used electronic cigarettes [id number] Information not available 05/31/2020 Mental Status None recorded. Family History Relationship Description Onset Age of this Age Resolved Age Notes LastModified by Organization Details LastModified Time Father Hypertensive disorder [email or web address] Not available 2018 16:18:32 Medical History Condition Response Arrhythmia Y Gynecological HistoryNo gynecological history recorded. Obstetrics History GPAL:G 0 P 0 0 0 0 Past Encounters Encounter ID Performer Location Encounter Start Date Encounter Closed Date Diagnosis/Indication Diagnosis SNOMED-CT Code Diagnosis ICD10 Code Diagnosis Note [id number] Zac Boyd MD [place] OFFICE [facility] [place] [address] 07/02/2019 16:03:06 07/02/2019 17:26:33 Supraventricular tachycardia 4907762 I47.1 hx of Aflutter and AVnRT s/p ablationEC HO, Holetr, labsrestar t Metoprolol Hypokalemia 31441542 E87 .6 pt was adised to supplement K with diet and O[place] labs [id number] Flavio Trevizo MD [place] OFF[facility] [place] [address] 08/04/2019 11:51:16 10/16/2019 11:04:42 Supraventricular tachycardia 1445228 I47.1 hx of Aflutter and AVnRT s/p ablation (2014)ECHO , Holetr, labs Hypokalemia 03572278 E87 .6 pt was advised to supplement K with diet and OTC supplement swill check labs Inappropri ate sinus tachycardia 369643767 I47.1 Will start Metoprolol . [id number] Zac Boyd MD [place] OFFICE [facility] [place] [address] 03/17/2020 15:03:46 03/17/2020 16:56:29 Supraventricular tachycardia 2248494 I47.1 History of Aflutter and AVnRT s/p ablation (2014) 08/10/2019 Holter Monitor: Unremarkab le holter.07/29: Echocardio graphic Studies: The left ventricula r size is normal The left ventricula r systolic function is normal Estimated Left ventricula r ejection fraction is 55-60% Left ventricula r diastoic function is normal No evidence of aortic valve stenosis Trace mitral regurgitat ion there is mild prolapse of the anterior mitral valve leafletsrE CENT STRESS TEST NEGATIVE Hypokalemia 11995701 E87 .6 Reports K 3.7 in ER 03/11/2020, will recheck. Inappropri ate sinus tachycardia 437837279 I47.1 pt with possible autonomic dysfunctio n.This could be evaluated in tertiary center like [facility] or [facility] [id number] MD Aleksey Schumacher Office [address] [facility] [address] [place] [address] 06/02/2020 09:52:52 06/02/2020 10:47:23 Supraventricular tachycardia 5909970 I47.1 06/02/2020H ospital EKG SR/ST108 Today.Educ ation on stress relief, anxiety relief.Inc rease exerciseEd ucation on heart function History of Aflutter and AVnRT s/p ablation (2014) 08/10/2019 Holter Monitor: Unremarkab le holter.07/29: Echocardio graphic Studies: The left ventricula r size is normal The left ventricula r systolic function is normal Estimated Left ventricula r ejection fraction is 55-60% Left ventricula r diastolic function is normal No evidence of aortic valve stenosis Trace mitral regurgitat ion there is mild prolapse of the anterior mitral valve leafletsrE CENT STRESS TEST NEGATIVE Hypokalemia 30164589 E87 .6 06/02/2020K in the ER on is 4.1Last K 3.8 on 03/11/2020 Inappropri ate sinus tachycardia 552175958 I47.1 06/02/2020p t with possible autonomic dysfunctio n.This could be evaluated in tertiary center like [facility] or [facility] Health Concerns Section Related Observation LastModified by Organization Detai ls LastModified Time None Recorded Concern Status LastModified by Organization Details LastModified Time None Recorded Advance Directives Directive None Recorded Payers Insurance Date Sequence Insurance Name Policy Number Policy Lyles Covered Member ID Lyles Member ID Guarantor Name 08/02/2020 1 [facility] [place] Gale Floyd [id number] Gale Floyd Notes Date Note Type Note Provider Name and Address Organization Details Recorded Time 9 text/htm l CC: PalpitationsHPI: 28 year-old woman with history of SVT s/p ablation who presents for cardiovascular evaluation. pt presented few weeks ago to [facility] due to palpitatins. She was found to have sinus tachycardia. , 130 hrAt that time her cat was following her and knew something is wrong previous pt was in she was on observationMetoprolol was given and she was diagnosed by EP with inappropiate sinus tachycardia she was recommended Tilt test but was not done. Susequently pt had another evaluation and was found to have AVRnT in [place] 2014 her heart was skipping too much. It was 200 bpm stayed overnight , did meet EP Dr. Bautista ( [place], [place]) and she had ablation. Was told that had AVnRT and atrial flutter. She was told that AFlutter could come back in 10 yrs which could be re-ablated. Then she [place] She is on Metoprolol 12.5 BID or Metoprolol 25 BID on off since she was teenager Ablation initially discussed and she was too young. She quit Metoprolol in 01/2019. go to gym and HR usually is fine tachycardia and headache.sometime feels high HR not always HR fluctuates, usually in 100's Since she moved to [place] she saw Dr. Can at [facility], was giving Metoprolol she was told to have low K before No known history of coronary artery disease. No history of previous myocardial infarction. No history of heart failure. No known valvular heart disease. History of arrhythmia reported. Patient reports feeling well overall. Patient is active, but is not exercising regularly. No chest pain. No arm pain. No neck pain. No nausea and vomiting. No diaphoresis. No shortness of breath at rest. No dyspnea on exertion. No fatigue.No orthopnea. No PND. No leg swelling. Palpitation reported. No dizziness. No syncope . No pre-syncope. No claudication. No major bleeding events. No side effects from medications. Complete ROS negative except as stated in the HPI and ROS. Results from this visit, or from the past: EKG (07/02/2019): sinus tachycardia 107 bpm, NSST changes Zac poe [place] [facility] 07/02/2019 17:26:31 0 text/htm l 08/04/19 CC: Palpitations HPI: 28 year-old woman with history of SVT s/p ablation (2014) who presents for follow up. She was last seen in clinic 1 month ago. Had recent visit to ED at [facility] with cough, bronchitis 07/31/2019; albuterol therapy causing increased HR, PCP told her not to use. Has chest pain from coughing. Previously [facility] due to palpitations. She was found to have sinus tachycardia, 130 hr. At that time her cat was following her and knew something is wrong. Previous pt was in [place] she was on observationMetoprolol was given and she was diagnosed by EP with inappropriate sinus tachycardia She quit Metoprolol in 01/2019. Walks for exercise, and HR usually is fine. She was recommended to have a Tilt test, but was not done. Subsequently pt had another evaluation and was found to have AVRnT in [place] 2014 her heart was skipping too much. It was 200 bpm; stayed overnight , did meet EP Dr. Bautista ([place], [place]) and she had ablation. Was told that had AVnRT and atrial flutter. She was told that AFlutter could come back in 10 yrs which could be re-ablated. Results from this visit, or from the past: CMP, serum or plasma 07-02-2019 07/02/19: Na 138, K 3.7, CL 101, CO2 28, BUN 9, CR 0.6 CBC w/ diff 06-12-2019 06/12/19 CBC: WBC 6.1, RBC 4.05, HGB 13.6, HCT 39.7, PLT 217 EKG, 08/04/19: Sinus Tachycardia. EKG (07/02/2019): sinus tachycardia 107 bpm, NSST changes Flavio Trevizo MD [address] [place], [address], [facility] 10/16/2019 11:04:41 0 text/htm l 03/17/2020 CC: Palpitations fu HPI: 29 year-old woman with history of SVT s/p ablation (2014) who presents for follow up. She was last seen in clinic 7 months ago pm 08/04/2019. Was recently seen in the ER at [facility] 03/11/2020 for back and neck muscle spasms as well as abdominal pain, denies chest pain. Noted her potassium was 3.7.CXR was normal, She was offered pain injections but she declined.PC suggested acupuncture Pt went to [facility] few times over last few months. Was even seen by cessation systems outreach specialist (Dr. Smith) and had stress test which was nor,mal. stopped Toprol that he used to take before Had diarrhea since September 2019 and recently resolved on probiotic.During that time had hypokalemia. Pt had some back pain.[facility], better than before 3,2, diarrhea from September No Toprol for now neck/ shoulder pain recently. Was advised steroid injection but refused since had bad experience with that before. She was seen by EP on 03/15/2020 with [facility] and had a stress echo which was negative. She was cleared to return to normal activity and diet by Zita CONNOR at [facility]. She is tachycardia today and reports she is often tachy and does not feel it. Denies palpitations. Her BP is low Previously [facility] due to palpitations. She was found to have sinus tachycardia, 130 hr. At that time her cat was following her and knew something is wrong. Previous pt was in [place] she was on observation. Metoprolol was given and she was diagnosed by EP with inappropriate sinus tachycardia. She quit Metoprolol in 01/2019. Walks for exercise, and HR usually is fine. She was recommended to have a Tilt test, but was not done. Subsequently pt had another evaluation and was found to have AVRnT in [place] 2015 her heart was skipping too much. It was 200 bpm; stayed overnight , did meet EP Dr. Bautista ([place], [place]) and she had ablation. Was told that had AVnRT and atrial flutter. She was told that AFlutter could come back in 10 yrs which could be re-ablated. *Had unremarkable holter done in 08/10/19 . *Had ECHO done in 08/08/19 showed normal LV systolic function, EF 55-60% , Left ventricular diastoic function is normal, Trace mitral regurgitation, there is mild prolapse of the anterior mitral valve leaflets. Results from this visit, or from the past: CBC 014016 HGB 13.6, PLT 196CHEM [id number] K 3.8, CR 0.7, AST 17 ALT 11, TSH 1.53, 03/17/20 EKG: Sinus tachycardia (105 bpm), NSST [id number]/19 EKG: sinus tachycardia non specific Flat T waves inferior leadsEKG, 08/04/19: Sinus Tachycardia. mu EKG 08/09/2019 Sinus tachycardia. Compared to ECG 08/07/2019 no significant changeEKG, 08/04/19: Sinus Tachycardia 07/02/19 EKG: Sinus tach NSST changes 06/18/19 EKG: sinus tachycardia otherwise normal ECG when compared with ECG of 12 jun 2019 16:43 no significant change was found 06/18/19 EKG: Sinus tachycardia otherwise normal ECG when compared with ECG of 12 JUN 2019 16:43 No significant change was found 08/08/2019: ECHO : The left ventricular size i normal The left ventricular systolic function is normal Estimated Left ventricular ejection fraction is 55-60% Left ventricular diastoic function is normal No evidence od aortic valve stenosis Trace mitral regurgitation there is mild prolapse of the anterior mitral valve leaflets 08/10/19 Holter Monitor: Unremarkable holter. 08/09/2019: Chest X-Ray : No acute chest findings SRESS ECHO 01/21/20 CLINICALLE NEGATIVE. PT HAD NO REPRODUCTION OF HER INDEX CHEST PAIN WITH EXERTION.EKG NEGATIVE. EXCELLENT EXERCISE CAPACITY. ECHOCARDIOGRAPHICALLY NEGATIVE FOR ISCHEMIA. BP RESPONSE NORMAL. OVERALL LOW RISK FOR CARDIAC EVENT. Zac Boyd [place], [place] - [facility] 03/17/2020 16:56:27 0 text/htm l 06/02/2020 CC: Palpitations fu HPI: 29 year-old woman with history of SVT s/p ablation (2014) who presents for follow up. She was seen in the ER at [facility] on 05/31/2020. She reported that she had a HR of 120-[address] to an appointment with [facility], which resulted her being taken down to ER. Patient is upset about ER visit. ER note reports that patient refused testing and requested to walk up to [facility] offices. Serial EKG results show SR/ST. Frequent visits to ER for urinary complaints. Reports that she was started on antibiotics for kidney infection. She reports that she is waiting to schedule and EP study with [facility] and she sees Dr. Elizondo Previously:Was recently seen in the ER at [facility] 03/11/2020 for back and neck muscle spasms as well as abdominal pain, denies chest pain. Noted her potassium was 3.7.CXR was normal, She was offered pain injections but she declined.PC suggested acupuncture Pt went to [facility] few times over last few months. Was even seen by cessation systems outreach specialist (Dr. Smith) and had stress test which was nor,mal. stopped Toprol that he used to take before Had diarrhea since September 2019 and recently resolved on probiotic.During that time had hypokalemia. Pt had some back pain.ate mash potatoes [facility] 3.7, better than before 3,2, diarrhea from September No Toprol for now neck/ shoulder pain recently. Was advised steroid injection but refused since had bad experience with that before. She was seen by EP on 03/15/2020 with [facility] and had a stress echo which was negative. She was cleared to return to normal activity and diet by Zita CONNOR at [facility]. She is tachycardia today and reports she is often tachy and does not feel it. Denies palpitations. Her BP is low Previously [facility] due to palpitations. She was found to have sinus tachycardia, 130 hr. At that time her cat was following her and knew something is wrong. Previous pt was in [place] she was on observation. Metoprolol was given and she was diagnosed by EP with inappropriate sinus tachycardia. She quit Metoprolol in 01/2019. Walks for exercise, and HR usually is fine. She was recommended to have a Tilt test, but was not done. Subsequently pt had another evaluation and was found to have AVRnT in [place] 2014 her heart was skipping too much. It was 200 bpm; stayed overnight , did meet EP Dr. Bautista ([place], [place]) and she had ablation. Was told that had AVnRT and atrial flutter. She was told that AFlutter could come back in 10 yrs which could be re-ablated. *Had unremarkable holter done in 08/10/19 . *Had ECHO done in 08/08/19 showed normal LV systolic function, EF 55-60% , Left ventricular diastoic function is normal, Trace mitral regurgitation, there is mild prolapse of the anterior mitral valve leaflets. Results from this visit, or from the past: CBC 03/11/20 HGB 13.6, PLT 196CHEM 03/11/20 K 3.8, CR 0.7, AST 17 ALT 11, TSH 1.53,iron + TIBC + ferritin, serum 09-23-2019 Iron 115 Iron binding capacity 339 [place] [address]/23/2019: TSH 1.6315209/23/2019 : Mag 2.: D-Diamer <8378008/07/2019 : BNP <0 03/17/20 EKG: Sinus tachycardia (105 bpm), NSST nsiiluq06/5/19 EKG: sinus tachycardia non specific Flat T waves inferior leadsEKG, 08/04/19: Sinus Tachycardia. mu EKG 08/09/2019 Sinus tachycardia. Compared to ECG 08/07/2019 no significant changeEKG, 08/04/19: Sinus Tachycardia 07/02/19 EKG: Sinus tach NSST changes 06/18/19 EKG: sinus tachycardia otherwise normal ECG when compared with ECG of 12 jun 2019 16:43 no significant change was found 06/18/19 EKG: Sinus tachycardia otherwise normal ECG when compared with ECG of 12 JUN 2019 16:43 No significant change was found 01/21/20 STRESS ECHO: Clinically negative. Patient had no reproduction of her index chest pain with exertion. Electrocardiographically negative treadmill test for ischemia. Excellent exercise capacity. Patient achieved a heart rate of 196 BPM which is 103% of her age predicted maximum. She had no symptoms with exercise. Echocardiographically negative for ischemia. Ossa treadmill score is 8, which indicated low risk. Blood pressure response was normal. The quality of this study is good. Stress echo shows overall low risk for a cardiac event. 08/08/2019: ECHO : The left ventricular size i normal The left ventricular systolic function is normal Estimated Left ventricular ejection fraction is 55-60% Left ventricular diastoic function is normal No evidence od aortic valve stenosis Trace mitral regurgitation there is mild prolapse of the anterior mitral valve leaflets 08/10/19 Holter Monitor: Unremarkable holter. 03/11/20 CHEST XR: No acute cardiopulmonary disease. 08/09/2019: Chest X-Ray : No acute chest findings SRESS ECHO 01/21/20 CLINICALLE NEGATIVE. PT HAD NO REPRODUCTION OF HER INDEX CHEST PAIN WITH EXERTION.EKG NEGATIVE. EXCELLENT EXERCISE CAPACITY. ECHOCARDIOGRAPHICALLY NEGATIVE FOR ISCHEMIA. BP RESPONSE NORMAL. OVERALL LOW RISK FOR CARDIAC EVENT. Flavio Trevizo MD [address] [place], [address], [facility] - [facility] 06/02/2020 11:41:05 OBGyn Episode No OBEpisode recorded.
--- OUTSIDE RECORDS SUMMARY | 2024-12-24 13:37 | XMS_ITS | Encounter Summary ---
Author Organization [facility] Address [address] [address] Care Team Providers Care Seamer Operator Name Role Phone Elio Thomas MD Primary Care Provider Reason for Visit * Reason Onset Date Comments Appointment 05/06/2024 Spk to [place], stated she was told she could not schedule w/ Dr Briseno regarding her left foot and ankle. She stated she was told to schedule with a sports medicine doctor, which she states she does not have a sports injury. It shows she is scheduled for 05/08/2024. Please reach out to patient for assistance with selecting a doctor that can properly treat her. Encounter Details Date Type Department Care Team (Late st Contact Info) Description 05/06/2024 Telephone [facility] - Centralized Scheduling [address] [place] [phone] Oswaldo Briseno T, DO [address] [place] [phone] Appointment (Spk to [place], stated she was told she could not schedule w/ Dr Briseno regarding her left foot and ankle. She stated she was told to schedule with a sports medicine doctor, which she states she does not have a sports injury. It shows she is scheduled for 05/08/2024. Please reach out to patient for assistance with selecting a doctor that can properly treat her. 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 She stated she was told to schedule with a sports medicine doctor, which she states she does not have a sports injury. It shows she is scheduled for 05/08/2024. Please reach out to patient for assistance with selecting a doctor that can properly treat her. documented in this encounter Plan of Treatment Not on file documented as of this encounter Visit Diagnoses Not on filedocumented in this encounter Care Teams Seamer Operator Relationship Specialty Start Date End Date Elio Thomas MD [address] [facility] [address] [place] [id number] PCP - General 03/05/22 documented as of this encounter
--- OUTSIDE RECORDS SUMMARY | 2024-12-24 13:37 | XMS_ITS | Clinical Summary ---
Author Organization [facility] Address [address] [place] [address] Care Team Providers Care Miner Helper Name Role Phone ShonIsela patterson GILMER Primary Care Provider [phone] Allergies Active Allergy Reactions Criticality Noted Date Comments Latex Rash Medium 03/04/2022 Medications cyclobenzaprine (FLEXERIL) 10 mg tablet Take 1 tablet (10 mg total) by mouth 2 (two) times a day as needed for muscle spasms 20 tablet 04/14/20 24 Active ketorolac (TORADOL) 10 mg tablet Take 1 tablet (10 mg total) by mouth every 6 (six) hours as needed for pain 20 tablet 08/03/19 25 Active cyclobenzaprine (FLEXERIL) 5 mg tablet Take 1 tablet (5 mg total) by mouth 3 (three) times a day as needed for muscle spasms 15 tablet 08/03/19 25 Active ondansetron ODT (ZOFRAN-ODT) 4 mg disintegrating tablet Take 1 tablet (4 mg total) by mouth every 8 (eight) hours as needed for nausea or vomiting 20 tablet 08/03/19 25 Active Additional Information Patient not taking.Reported on 09/09/2024 metoprolol tartrate (LOPRESSOR) 25 mg immediate release tablet Take 0.5 tablets (12.5 mg total) by mouth daily Taking as needed Active Active Problems Problem Noted Date Diagnosed Date Menorrhagia with regular cycle 11/24/2024 Overview (11/24/2024): presents with menorrhagia. Her uls shows a 10mm EM with possible polyp. She is considering IVF in the future and wants to ensure no EM abnormalities as a source of her menorrhagia. Assessment & Plan (11/24/2024 10:50 AM CDT): Plan is for hysteroscopy, dilation and curettage, polypectomy. The patient is aware that ultrasound can show evidence of a polyp that is false positive due to the presence a transient clot in the endometrial cavity. We have discussed the risks of hysteroscopy D&C with polypectomy includes uterine wall perforation, infection, injury to adjacent organs, or excess bleeding. We have discussed pain control using [id number] medications postoperatively in the expectation for some mild spotting for 3-5 days. All of her questions were answered. 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/2021 Ganglion cyst 09/20/2021 Foot pain 09/20/2021 Bone cyst of left ankle 09/20/2021 Bone cyst of foot 09/20/2021 Allergic sinusitis 01/26/2020 Atrial flutter 01/26/2020 Dizziness 01/26/2020 Pain in both knees 01/26/2020 Palpitations 01/26/2020 Sinus tachycardia 01/26/2020 SVT (supraventricular tachycardia) 01/26/2020 Impingement syndrome of left ankle 07/30/2018 Somatic dysfunction of sacroiliac joint 02/07/20 18 Lumbar trigger point syndrome 08/29/2017 Strain of flexor muscle of hip 08/29/2017 Trochanteric bursitis 08/29/2017 Resolved Problems Problem Noted Date Diagnosed Date Resolved Date Acute bronchitis and bronchiolitis 01/26/2020 09/14/2021 Encounters Date Type Department Care Team Description 12/03/2024 Telephone [facility] [address] [facility] [address] [place] [address] Jesus Matos MD 11/25/2024 Telephone [facility] [address] [facility] Office [facility] [address], [place] [address] Jennifer Forbes 11/24/2024 10:00 AM CDT Office Visit [facility] [address] [facility] Office [facility] [address], [place] [address] Jesus Matos MD Menorrhagia with regular cycle (Primary Dx) 11/24/2024 9:45 AM CDT Ancillary Procedure [facility] [address] [facility] Office [facility] [address], [place] [address] Irregular bleeding 11/24/2024 Telephone [facility] [address] [facility] Office [facility] [address], [place] [address] Cheryl Edmond RN Surgery 10/26/2024 Orders Only [facility] Sur[facility] [address] [place] [phone] Blaze Woody DPM Sural neuritis, left (Primary Dx) 10/06/2024 Orders Only [facility] Surgeon [facility] [place] [address] Blaze Woody DPM from Last 3 Months Immunizations Immunization Administration Dates Next Due Influenza, Quadrivalent, Spl it, Preservative Free, Intramuscular 10/16/2019 Pfizer SARS-CoV-2 Monovalent Vaccination (12+ Yrs) PURPLE 10/27/2020 Surgical History Surgery Date Site/Laterality Comments HEART SURGERY CARDIAC SURGERY 07/29/2014 - 07/28/2015 heart ablation for SVT FOOT SURGERY 07/29/2015 - 07/28/2016 Medical History Medical History Date Comments Allergic rhinitis Anemia Urinary tract infection Ankle pain Anxiety SVT (supraventricular tachycardia) Family History Medical History Relation Name Comments Heart disease Mother Hypertension Mother Relation Name Status Comments Mother Social History Tobacco Use Types Packs/Day Years Used Date Smoking Tobacco: Never Smokeless Tobacco: Never Alcohol Use Standard Drinks/Week Comments Yes 0 (1 standard drink = 0.6 oz pur e alcohol) AUDIT-C Answer Date Recorded Q1: How often do you have a drink containing alc ohol? Monthly or less 09/09/2024 Q2: How many drinks containi ng alcohol do you have on a typical day when you are drinking? 1 or 2 09/09/2024 Q3: How often do you have si x or more drinks on one occasion? Never 09/09/2024 PHQ-2 Answer Date Recorded PHQ-2 Total Score (If total score is 3 or more points, staff should administer the PHQ-9) 0 06/29/2021 Personal Safety Answer Date Recorded Have you ever been in or are you currently in a harmful physical or emotional relationship or is someone making you feel afraid or unsafe? Denies 08/03/2024 Comments No Sex and Gender Information Value Date Recorded Sex Assigned at Not on file Legal Sex Female 8:52 PM RELIABILITY ENGINEER Gender Identity Female 07/01/2022 1:00 PM RELIABILITY ENGINEER Sexual Orientation Straight 07/01/2022 1: 00 PM RELIABILITY ENGINEER Obstetrics History Para Term AB IAB SAB Ectopic Multiple Livin g Live Births 0 0 0 0 0 0 0 0 0 0 0 Last Filed Vital Signs Vital Sign Reading Time Taken Comments Blood Pressure 103/76 08/03/2024 6:00 PM RELIABILITY ENGINEER Pulse 86 08/03/2024 6:00 PM RELIABILITY ENGINEER Temperature 37.2 C (98.9 F) 08/03/2024 1:52 PM RELIABILITY ENGINEER Respiratory Rate 18 08/03/2024 6:00 PM RELIABILITY ENGINEER Oxygen Saturation 100% 08/03/2024 6:00 PM RELIABILITY ENGINEER Inhaled Oxygen Concentration - - Weight 62.1 kg (137 lb) 09/09/2024 1:15 PM RELIABILITY ENGINEER Height 154.9 cm (5' 1) 09/09/2024 1:15 PM RELIABILITY ENGINEER Body Mass Index 25.89 09/09/2024 1:15 PM RELIABILITY ENGINEER Plan of Treatment Health Maintenance Due Date Last Done Comments Cervical Cancer Screening 1989 DTaP/Tdap/Td Vaccine (1 - Tdap) 2000 Varicella Vaccines (1 of 2 - 13+ 2-dose series) 2002 Hepatitis B Screening 2007 Regular Well Visit/Exam 18-64 2007 Depression Screening 06/29/2022 06/29/2021 Covid-19 Vaccine ( - 2023-2 5 season) 2024 10/27/2020, 10/06/2020 Influenza Vaccine (Season Ended) 2025 10/16/2019 Hepatitis C Screening Completed 01/21/2022 HPV Vaccines Aged Out No longer eligi ble based on patient's age to complete this topic Pneumococcal vaccine <65 Aged Out No longer eligible based on patient's age to complete this topic Goals Goal Patient Goal Type Associated Problems Recent Progress Patient-Stated? Author CCM Chronic Pain Care Plan Chronic Care Management No Rhina Fofana, RN Note: Problem: Chronic Pain Goals: 1. Minimize further functional decline 2. Maximize quality of life 3. Control pain Strategies: - Activity/exercise program recommendation - Conservative stepwise pain medicine strategy with multi-disciplinary approach - Recommend healthy lifestyle strategies and compensatory methods as needed Procedures Procedure Name Priority Date/Time Associated Diagnosis Comments US PELVIS COMPLETE Routine 11/24/2024 9: 47 AM CDT Irregular bleeding HEPATITIS PANEL, ACUTE STAT 01/21/2022 4:52 PM CDT from Last 3 Months or Most Recently Relevant to Health Maintenance Results * US Pelvis Complete (11/24/2024 9:47 AM CDT) Cul de Sac No free fluid visualized VIEWPOINT Endometrial Thickness 10.0 mm&millim eters VIEWPOINT Anatomical Region Laterality Modality Pelvis N/A Ultrasound 11/24/2024 9:49 AM CDT Impressions 11/24/2024 10:36 AM CDT Anteverted uterus, volume = 43.8 cm ; EM thickness = 10 mm Both ovaries contain 2cm cysts, the right is ground glass and the left appears simple. Neither has internal doppler flow. No free fluid Narrative Procedure Note Jesus Matos MD - 11/24/2024 IMPRESSION: Anteverted uterus, volume = 43.8 cm ; EM thickness = 10 mm Both ovaries contain 2cm cysts, the right is ground glass and the leftappears simple. Neither has internal doppler flow. No free fluid us Jesus Matos MD IMG US PROCEDURES Final R esult * Hepatitis panel, acute (01/21/2022 4:52 PM CDT) Hep A IgM Nonreactive Nonreactive [facility] Comment: Interpretive Data: If Hep A IgM Ab is reported as Equivocal, a new sample should be drawn in two weeks for testing. Current interpretive data was last revised on 19. Hep B core IgM Nonreactive Nonreactive [facility] Comment: Interpretive Data If HepB Core IgM Ab is reported as Equivocal, a new sample should be drawn in two weeks for testing. Current interpretive data was last revised on 19. Hep C Ab Nonreactive Nonreactive [facility] Comment: Interpretive Data Nonreactive: Antibodies to HCV not detected. Does NOT exclude the possibility of recent exposure to HCV. Equivocal: Equivocal for HCV antibodies. Supplemental molecular testing will be automatically performed to determine infection status in accordance with current CDC screening recommendations. Reactive: Positive for HCV antibodies. This may represent current or past HCV infection. Supplemental molecular testing will be automatically performed to determine current infection status in accordance with current CDC screening recommendations. Interpretive data was last revised on 2019. HepBsAg Nonreactive Nonreactive [facility] Blood 01/21/2022 4:52 PM CDT 01/21/2022 6:25 PM CDT us Dontrell Dumont NP LAB MICROBIOLOGY - GENERA L ORDERABLES Final Result [facility] [address] [facility] [place] [address] from Last 3 Months or Most Recently Relevant to Health Maintenance Insurance [place] [employer] ACC[employer] OOS BLUE ACCESS OOS Care Teams Miner Helper Relationship Specialty Start Date End Date Isela Menendez [place] [address] [place] [address] PCP - General Sales Order Coordinator 10/30/24
--- OUTSIDE RECORDS SUMMARY | 2024-12-24 13:37 | XMS_ITS | Encounter Summary ---
Author Organization [facility] Address [address] 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
--- OUTSIDE RECORDS SUMMARY | 2024-12-24 13:37 | XMS_ITS | Patient Health Record ---
Author Organization 1 OF Julianna zuleta [facility] Address [address] [place] [address] Care Team Providers Care Residential Real Estate Assistant Name Role Phone Dr. Kenneth Lares Primary Care Provider Jeri Keith Oneal Unavailable [phone] Allergies No Known Allergies Reason For Referral No Information Social History Tobacco Use: Social History Observation Description Date Details (start date - stop date) Never Smoker NA - NA Tobacco Use/Smoking Question Answer Notes Are you a nonsmoker Problems Problem Type SNOMED Code ICD Code Onset Dates Problem Status W/U Status Risk Notes Problem [id number] Vitamin D deficiency (E55.9) Active confirmed Plan Of Treatment No Information Insurance Providers Payer Name Payer Address Payer Phone Subscriber Number Group Number Insured Name Patient Relationship to Insured Coverage Start Date Coverage End Date [facility] and [facility] [address] [place] [address] [id number] Gale Negron Self - patient is the insured Medical (General) History Medical History History ICD Code anxiety Surgical History Surgery Date(Month/Year)
--- OUTSIDE RECORDS SUMMARY | 2024-12-24 13:37 | XMS_ITS | Referral Summary ---
Author Organization [facility] Address [address] [place] [address] Care Team Providers Care Data Scientist Name Role Phone ShonIsela patterson GILMER Primary Care Provider [phone] Encounters Date Type Department Care Team Description 12/03/2024 Telephone [facility] [address] [facility] Office [facility] [address] [place] [address] Jesus Matos MD 11/25/2024 Telephone [facility] [address] [facility] Office [facility] [address], [place] [address] Jennifer Forbes 11/24/2024 Telephone [facility] [address] [facility] Office [facility] [address], [place] [address] Cheryl Edmond, renal dialysis rn 11/24/2024 9:45 AM CDT Ancillary Procedure [facility] [address] [facility] Office [facility] [address], [place] [address] Irregular bleeding 11/24/2024 10:00 AM CDT Office Visit [facility] [address] Medical Office [address] [place] [address] Jesus Matos MD Menorrhagia with regular cycle (Primary Dx) 10/26/2024 Orders Only [facility] Surgeon [facility] [place] [address] Blaze Woody DPM Sural neuritis, left (Primary Dx) 10/06/2024 Orders Only [facility] Surgeon [facility] [place] [address] Blaze Woody DPM from Last 3 Months Allergies Active Allergy Reactions Criticality Noted Date [...] bleeding. 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 Gender Identity Female 07/01/2022 1:00 PM EMS DRIVER Sexual Orientation Straight 07/01/2022 1: 00 PM EMS DRIVER Last Filed Vital Signs Vital Sign Reading Time Taken Comments Blood Pressure 103/76 08/03/2024 6:00 PM EMS DRIVER Pulse 86 08/03/2024 6:00 PM EMS DRIVER Temperature 37.2 C (98.9 F) 08/03/2024 1:52 PM EMS DRIVER Respiratory Rate 18 08/03/2024 6:00 PM EMS DRIVER Oxygen Saturation 100% 08/03/2024 6:00 PM EMS DRIVER Inhaled Oxygen Concentration - - Weight 62.1 kg (137 lb) 09/09/2024 1:15 PM EMS DRIVER Height 154.9 cm (5' 1) 09/09/2024 1:15 PM EMS DRIVER Body Mass Index 25.89 09/09/2024 1:15 PM EMS DRIVER Plan of Treatment Not on file Goals Goal Patient Goal Type Associated Problems Recent Progress Patient-Stated? Author CCM Chronic Pain Care Plan Chronic Care Management Rhina Naik, RN Note: Problem: Chronic Pain Goals: 1. [...] PM CDT) Hep A IgM Nonreactive Nonreactive [facility] Comment: Interpretive Data: If Hep A IgM Ab is reported as Equivocal, a new sample should be drawn in two weeks for testing. Current interpretive data was last revised on 19. Hep B core IgM Nonreactive Nonreactive [facility] Comment: Interpretive Data If HepB Core IgM Ab is reported as Equivocal, a new sample should be drawn in two weeks for testing. Current interpretive data was last revised on 19. Hep C Ab Nonreactive Nonreactive [facility] Comment: Interpretive Data Nonreactive: Antibodies to HCV [...] last revised on 2019. HepBsAg Nonreactive Nonreactive [facility] Blood 01/21/2022 4:52 PM CDT 01/21/2022 6:25 PM CDT Dontrell Dumont NP LAB MICROBIOLOGY - GENERA L ORDERABLES Final Result Performing Organization Address City/State/[facility] Co de Phone Number [facility] [address] [facility] Department [place] [address] from Last 3 Months or Most Recently Relevant to Health Maintenance Insurance [employer] Care Teams Data Scientist Relationship Specialty Start Date End Date Isela Men[place] [address] [address] [place] [address] PCP - General Human Services Instructor 10/30/24
--- OUTSIDE RECORDS SUMMARY | 2024-12-24 13:37 | XMS_ITS | Clinical Summary ---
Author Organization [facility] Address [address] [place] [address] Care Team Providers Care Emergency Operator Name Role Phone Unavailable Primary Care Provider Unavailabl e Encounters Date Type Department Care Team Description 12/17/2024 External Device Data [facility] ABSTRACTION Provider, Abstract 12/16/2024 External Device Data [facility] ABSTRACTION Provider, Abstract 12/15/2024 External Device Data [facility] ABSTRACTION Provider, Abstract 11/10/2024 External Device Data [facility] ABSTRACTION Provider, Abstract 10/14/2024 External Device Data [facility] ABSTRACTION Provider, Abstract 10/14/2024 External Device Data [facility] ABSTRACTION Provider, Abstract 10/03/2024 External Device Data [facility] ABSTRACTION Provider, Abstract 10/02/2024 External Device Data [facility] ABSTRACTION Provider, Abstract 09/29/2024 External Device Data [facility] ABSTRACTION Provider, Abstract from Last 3 Months Social History Tobacco Use Types Packs/Day Years Used Date Smoking Tobacco: Never Assessed Comments Unknown Sex and Gender Information Value Date Recorded Sex Assigned at Not on file Legal Sex Female 5:08 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
--- OUTSIDE RECORDS SUMMARY | 2024-12-24 13:37 | XMS_ITS | Encounter Summary ---
Author Organization [facility] Address [address] [place] [address] Care Team Providers Care Builder'S Labourer Name Role Phone Kenneth Lares MD Primary Care Provider + Isela Menendez NP Primary Care Provider Reason for Visit * Reason Onset Date Comments spk w/nurse 04/17/2024 Encounter Details Date Type Department Care Team (Late st Contact Info) Description 04/17/2024 Telephone [facility] [address] [facility] [address] [place] [address] Francisca Olson MD PhD [address] [facility] [phone] [place] [address] spk w/nurse Social History Tobacco Use Types Packs/Day Years [...] on file Legal Sex Female 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
--- OUTSIDE RECORDS SUMMARY | 2024-12-24 13:38 | XMS_ITS | Data Portability ---
Author Organization [facility]RIS[facility] Manuel Rylee Mata Address [address] [place] [address] Care Team Providers Care Seasonal Clerk Name Role Phone LEEANNE ELLIS Engraver Machine ANTONINA SILVA Animal Surgeon ZEKE QUINTANA Primary Care Provider Assessment Encounter Date Assessment Date Assessment LastModified by Organization Details LastModified Time 06/24/2023 06/24/2023 Reviewed labwork from 05/31 ER visit, essentially normal. Creatinine 0.85 [email or web address] Not available 06/24/2023 16:44:39 Plan of Treatment Reminders Order Date Submit Date Provider Last Modified By Organization Details Last Modified Time Details Appointments None recorded. Lab urinalysis , dipstick 2023 024 [email or web address] In-Office Order, Internal Use Only DO Not Attach Compendium DO Not Attach Compendium, Do Not Delete/merge, [id number] 4 15:06:47 test, urine 2023 024 [email or web address] 39 In-Office Order, Internal Use Only DO Not Attach Compendium DO Not Attach Compendium, Do Not Delete/merge, [id number] 4 15:06:48 urinalysis , dipstick 2022 023 GIULIA In-Office Order, Internal Use Only DO Not Attach Compendium DO Not Attach Compendium, Do Not Delete/merge, [id number] 3 14:24:40 vitamin B12 + folate, serum or blood 2022 023 GIULIA [facility], [address], [address], [place], [address], 3 03:08:57 CBC w/ auto diff 2022 023 GIULIA [facility], [address] [facility] [address], [address], [place], [address], 3 03:08:57 Referral orthopedic surgeon referral 2024 025 J CARLOS Stone, [address] [facility] , [address], [address], 5 16:56:34 gastroente rologist referral 2022 023 roberto Ignacio MD, [address] [place], [address], 4 13:59:08 Procedures None recorded. Surgeries None recorded. Imaging None recorded. Medication Orders phenazopyr idine 200 mg tablet 2023 024 [facility], [address] [place] [address], [id number], 4 19:18:19 nitrofuran toin monohydrat e/macrocry stals 100 mg capsule 2023 024 [facility], [address] [place] [address], [id number], 4 21:03:31 famotidine 20 mg tablet 2022 023 [facility], [address] [place] [address], [id number], 3 19:29:10 Patient TargetsNo targets recorded. Patient Instructions Encounter Date Encounter Id Patient Instructions Last Modified By Organization Details Last Modified Time 03/13/2023 [id number] anemia: care instructions [email or web address] Not available 03/13/2023 17:11:40 Gale, - Thank you for your visit - Continue your current medications - Use medications as directed - See information on FODMAP diet (https://[email or web address].org/health/ grdggmkv-wll-puzbdmg ion/yrmati-ppzh-vamq -hbs-wojs-fd-know#:~ :text=What%20is%20FO DMAP%3F,the%20small% 20intestine%20absorb s%20poorly.) - I have placed referral to gastroenterology - you should receive a phone call in the next 2 weeks to schedule this(these) appointment(s). 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 for ongoing vaginal/endometriosi s concerns - Recheck your blood counts, along with vitamin B12 and folic acid levels, as they may cause anemia and increased MCV if low - Call with any concerns [email or web address] Not available 03/13/2023 17:11:23 05/31/2023 [id number] blood in the uri ne: care instructions Not available 05/31/2023 13:52:11 Gale, - Thank you for your visit - Continue your current medications - Your urinalysis shows blood only, no white blood cells or nitrates (signs of possible infection) - review with urology - they may consider checking for a kidney stone - Call with any concerns [email or web address] Not available 05/31/2023 13:52:02 06/24/2023 [id number] Gale, - Thank you for your visit - Continue your current medications - I am completing your preoperative letter and forwarding to [facility] - Call with any concerns [email or web address] Not available 06/24/2023 16:47:42 10/10/2023 [id number] Gale, - Than k you for your visit - Continue your current medications - Use medications as directed - Call if symptoms persist after 48 hours - I will forward information to your special library librarian so they know how to prescribe liquid doxycycline -- remember this medication is contraindicated in - Call with any concerns [email or web address] Not available 10/10/2023 15:07:55 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 Referral 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 Chronic nonspecific abdominal pain Referring Physician: Zeke Quintana, [facility], Encounter Date: 03/13/2023 Orthopedic Surgeon Referral for Left tarsal tunnel syndrome Referring Physician: Danielle Walter, [facility], Encounter Date: 11/17/2024 Results Created Date Observation Date Name Description Value Unit Range Abnormal Flag Note LastModifiedBy Organization Detail LastModifiedTime 05/31/2005/31/2023 urina lysis , dipst ick Leukocytes Negati ve Not Available In-Office Order Internal Use Only DO Not Attach Compendium DO Not Attach Compendium, Do Not Delete/merge, [id number] 05/31/2023 13:32:49 05/31/2005/31/2023 urina lysis , dipst ick Nitrite negati ve Not Available In-Office Order Internal Use Only DO Not Attach Compendium DO Not Attach Compendium, Do Not Delete/merge, [id number] 05/31/2023 13:32:49 05/31/2005/31/2023 urina lysis , dipst ick Urobilinogen .2 Not Available In-Of fice Order Internal Use Only DO Not Attach Compendium DO Not Attach Compendium, Do Not Delete/merge, [id number] 05/31/2023 13:32:49 05/31/2005/31/2023 urina lysis , dipst ick Protein 30 Not Available In-Office Order Internal Use Only DO Not Attach Compendium DO Not Attach Compendium, Do Not Delete/merge, [id number] 05/31/2023 13:32:49 05/31/2005/31/2023 urina lysis , dipst ick pH 7.5 Not Available In-Office Order Internal Use Only DO Not Attach Compendium DO Not Attach Compendium, Do Not Delete/merge, [id number] 05/31/2023 13:32:49 05/31/2005/31/2023 urina lysis , dipst ick Blood Modera te Not Available In-Office Order Internal Use Only DO Not Attach Compendium DO Not Attach Compendium, Do Not Delete/merge, [id number] 05/31/2023 13:32:49 05/31/20 23 05/31/2023 urina lysis , dipst ick Specific [place] 1.020 Not Available In-Off ice Order Internal Use Only DO Not Attach Compendium DO Not Attach Compendium, Do Not Delete/merge, [id number] 05/31/2023 13:32:49 05/31/20 23 05/31/2023 urina lysis , dipst ick Ketone Negati ve Not Available In-Office Order Internal Use Only DO Not Attach Compendium DO Not Attach Compendium, Do Not Delete/merge, [id number] 05/31/2023 13:32:49 05/31/20 23 05/31/2023 urina lysis , dipst ick Bilirubin Negati ve Not Available In-Office Order Internal Use Only DO Not Attach Compendium DO Not Attach Compendium, Do Not Delete/merge, [id number] 05/31/2023 13:32:49 05/31/20 23 05/31/2023 urina lysis , dipst ick Glucose Negati ve Not Available In-Office Order Internal Use Only DO Not Attach Compendium DO Not Attach Compendium, Do Not Delete/merge, [id number] 05/31/2023 13:32:49 05/31/20 23 05/31/2023 urina lysis , dipst ick Appearance Clear Not Available In-Offi ce Order Internal Use Only DO Not Attach Compendium DO Not Attach Compendium, Do Not Delete/merge, [id number] 05/31/2023 13:32:49 05/31/20 23 05/31/2023 urina lysis , dipst ick Color Yellow Not Available In-Office Order Internal Use Only DO Not Attach Compendium DO Not Attach Compendium, Do Not Delete/merge, [id number] 05/31/2023 13:32:49 10/10/19 24 10/10/2023 pregn abelino test, urine HCG negati ve Not Available In-Office Order Internal Use Only DO Not Attach Compendium DO Not Attach Compendium, Do Not Delete/merge, 10/10/2023 14:37:27 10/10/19 24 10/10/2023 urina lysis , dipst ick Leukocytes Negati ve Not Available In-Office Order Internal Use Only DO Not Attach Compendium DO Not Attach Compendium, Do Not Delete/merge, [id number] 10/10/2023 12:43:04 10/10/19 24 10/10/2023 urina lysis , dipst ick Nitrite negati ve Not Available In-Office Order Internal Use Only DO Not Attach Compendium DO Not Attach Compendium, Do Not Delete/merge, [id number] 10/10/2023 12:43:04 10/10/19 24 10/10/2023 urina lysis , dipst ick Urobilinogen .2 Not Available In-Of fice Order Internal Use Only DO Not Attach Compendium DO Not Attach Compendium, Do Not Delete/merge, 10/10/2023 12:43:04 10/10/19 24 10/10/2023 urina lysis , dipst ick Protein Trace Not Available In-Office Order Internal Use Only DO Not Attach Compendium DO Not Attach Compendium, Do Not Delete/merge, 10/10/2023 12:43:04 10/10/19 24 10/10/2023 urina lysis , dipst ick pH 7.0 Not Available In-Office Order Internal Use Only DO Not Attach Compendium DO Not Attach Compendium, Do Not Delete/merge, 10/10/2023 12:43:04 10/10/19 24 10/10/2023 urina lysis , dipst ick Blood Negati ve Not Available In-Office Order Internal Use Only DO Not Attach Compendium DO Not Attach Compendium, Do Not Delete/merge, 10/10/2023 12:43:04 10/10/19 24 10/10/2023 urina lysis , dipst ick Specific [place] 1.015 Not Available In-Off ice Order Internal Use Only DO Not Attach Compendium DO Not Attach Compendium, Do Not Delete/merge, 10/10/2023 12:43:04 10/10/19 24 10/10/2023 urina lysis , dipst ick Ketone Negati ve Not Available In-Office Order Internal Use Only DO Not Attach Compendium DO Not Attach Compendium, Do Not Delete/merge, 10/10/2023 12:43:04 10/10/19 24 10/10/2023 urina lysis , dipst ick Bilirubin Negati ve Not Available In-Office Order Internal Use Only DO Not Attach Compendium DO Not Attach Compendium, Do Not Delete/merge, [id number] 10/10/2023 12:43:04 10/10/19 24 10/10/2023 urina lysis , dipst ick Glucose Negati ve Not Available In-Office Order Internal Use Only DO Not Attach Compendium DO Not Attach Compendium, Do Not Delete/merge, [id number] 10/10/2023 12:43:04 10/10/19 24 10/10/2023 urina lysis , dipst ick Appearance Clear Not Available In-Offi ce Order Internal Use Only DO Not Attach Compendium DO Not Attach Compendium, Do Not Delete/merge, [id number] 10/10/2023 12:43:04 10/10/19 24 10/10/2023 urina lysis , dipst ick Color Pale Yellow Not Available In-Office Order Internal Use Only DO Not Attach Compendium DO Not Attach Compendium, Do Not Delete/merge, [id number] 10/10/2023 12:43:04 12/06/19 25 12/05/2024 Chori ogona dotro pin [Pres ence] in Urine choriogonado tropin [presence] in urine NEGATI VE Not Available Not Available 16:54:00 12/06/19 25 12/05/2024 Chori ogona dotro pin [Pres ence] in Urine service comment VALID Not Available Not Available 11/27 16:54:00 12/06/19 25 12/05/2024 Chori ogona dotro pin [Pres ence] in Urine interpretati on and review of laboratory results Normal Not Available Not Available 11/27 16:54:00 12/06/19 25 12/05/2024 Lacta te [Mole s/vol ume] in Serum or Plasm a lactate [moles/volum e] in serum or plasma 1 text: 0.4 - 2.0 mmol/L Not Available Not Available 12/23/2024 16:54:00 12/06/19 25 12/05/2024 Urina lysis dipst ick W Refle x Micro scopi c panel - Urine collection method - specimen URINE CLEAN CATCH Not Available Not Available 16:53:59 12/06/19 25 12/05/2024 Urina lysis dipst ick W Refle x Micro scopi c panel - Urine color of urine LIGHT YELLOW Not Available Not Available 16:53:59 12/06/19 25 12/05/2024 Urina lysis dipst ick W Refle x Micro scopi c panel - Urine clarity of urine CLEAR Not Available Not Available 11/27 16:53:59 12/06/19 25 12/05/2024 Urina lysis dipst ick W Refle x Micro scopi c panel - Urine specific gravity of urine 1.023 low: 1.001h igh: 1.03 Not Available Not Available 12/23/2024 16:53:59 12/06/19 25 12/05/2024 Urina lysis dipst ick W Refle x Micro scopi c panel - Urine pH of urine 7 low: 5high: 9 Not Available Not Available 12/23/2024 16:53:59 12/06/19 25 12/05/2024 Urina lysis dipst ick W Refle x Micro scopi c panel - Urine leukocytes [#/volume] in urine by test strip 25 text: negati ve abnormal Not Available Not Available 12/23/2024 16:53:59 12/06/19 25 12/05/2024 Urina lysis dipst ick W Refle x Micro scopi c panel - Urine nitrite [presence] in urine NEGATI VE text: negati ve Not Available Not Available 12/23/2024 16:53:59 12/06/19 25 12/05/2024 Urina lysis dipst ick W Refle x Micro scopi c panel - Urine protein [mass/volume ] in urine by test strip NEGATI VE text: <30 mg/dL Not Available Not Available 12/23/2024 16:53:59 12/06/19 25 12/05/2024 Urina lysis dipst ick W Refle x Micro scopi c panel - Urine glucose [mass/volume ] in urine NORMAL text: normal mg/dL Not Available Not Available 12/23/2024 16:53:59 12/06/19 25 12/05/2024 Urina lysis dipst ick W Refle x Micro scopi c panel - Urine ketones [mass/volume ] in urine by test strip NEGATI VE text: negati ve mg/dL Not Available Not Available 12/23/2024 16:53:59 12/06/19 25 12/05/2024 Urina lysis dipst ick W Refle x Micro scopi c panel - Urine urobilinogen [units/volum e] in urine by test strip 2 text: normal mg/dL abnormal Not Available Not Available 12/23/2024 16:53:59 12/06/19 25 12/05/2024 Urina lysis dipst ick W Refle x Micro scopi c panel - Urine bilirubin.to dimas [mass/volume ] in urine NEGATI VE text: negati ve mg/dL Not Available Not Available 12/23/2024 16:53:59 12/06/19 25 12/05/2024 Urina lysis dipst ick W Refle x Micro scopi c panel - Urine erythrocytes [#/volume] in urine by automated test strip 3+ text: negati ve abnormal Not Available Not Available 12/23/2024 16:53:59 12/06/19 25 12/05/2024 Urina lysis dipst ick W Refle x Micro scopi c panel - Urine mucus [#/area] in urine sediment by microscopy low power field RARE text: /lpf Not Available Not Available 12/23/2024 16:53:59 12/06/19 25 12/05/2024 Urina lysis dipst ick W Refle x Micro scopi c panel - Urine leukocytes [#/area] in urine sediment by microscopy high power field 4 text: <6 /hpf Not Available Not Available 12/23/2024 16:53:59 12/06/19 25 12/05/2024 Urina lysis dipst ick W Refle x Micro scopi c panel - Urine erythrocytes [#/area] in urine sediment by microscopy high power field >100 text: <6 /hpf high Not Available Not Available 12/23/2024 16:53:59 12/06/19 25 12/05/2024 Urina lysis dipst ick W Refle x Micro scopi c panel - Urine epithelial cells.squamo us [#/area] in urine sediment by microscopy high power field RARE text: /hpf Not Available Not Available 12/23/2024 16:53:59 12/06/19 25 12/05/2024 Urina lysis dipst ick W Refle x Micro scopi c panel - Urine interpretati on and review of laboratory results Abnorm al Not Available Not Available 16:53:59 12/06/19 25 12/05/2024 Compr ehens lyndsey metab olic 1999 panel - Serum or Plasm a glucose [mass/volume ] in serum or plasma 101 text: 70 - 99 mg/dL high Not Available Not Available 12/23/2024 16:53:59 12/06/19 25 12/05/2024 Compr ehens [place] metab olic 1999 panel - Serum or Plasm a urea nitrogen [mass/volume ] in serum or plasma 14 text: 7 - 18 mg/dL Not Available Not Available 12/23/2024 16:53:59 12/06/19 25 12/05/2024 Compr ehens [place] metab olic 1999 panel - Serum or Plasm a creatinine [mass/volume ] in serum or plasma 0.86 text: 0.55 - 1.02 mg/dL Not Available Not Available 12/23/2024 16:53:59 12/06/19 25 12/05/2024 Compr ehens lyndsey metab olic 1999 panel - Serum or Plasm a sodium [moles/volum e] in serum or plasma 139 text: 136 - 145 mmol/L Not Available Not Available 12/23/2024 16:53:59 12/06/19 25 12/05/2024 Compr ehens lyndsey metab olic 1999 panel - Serum or Plasm a potassium [moles/volum e] in serum or plasma 4 text: 3.5 - 5.1 mmol/L Not Available Not Available 12/23/2024 16:53:59 12/06/19 25 12/05/2024 Compr ehens lyndsey metab olic 2000 panel - Serum or Plasm a chloride [moles/volum e] in serum or plasma 110 text: 97 - 115 mmol/L Not Available Not Available 12/23/2024 16:53:59 12/06/19 25 12/05/2024 Compr ehens lyndsey metab olic 1999 panel - Serum or Plasm a carbon dioxide, total [moles/volum e] in serum or plasma 25 text: 21 - 32 mmol/L Not Available Not Available 12/23/2024 16:53:59 12/06/19 25 12/05/2024 Compr ehens lyndsey metab olic 1999 panel - Serum or Plasm a calcium [mass/volume ] in serum or plasma 9 text: 8.5 - 10.1 mg/dL Not Available Not Available 12/23/2024 16:53:59 12/06/19 25 12/05/2024 Compr ehens lyndsey metab olic 1999 panel - Serum or Plasm a bilirubin.to dimas [mass/volume ] in serum or plasma 0.3 text: 0.2 - 1.2 mg/dL THIS ASSAY IS NOT RECOM MIGUEL D FOR PATIE NTS UNDER GOING TREAT MENT WITH ELTRO MBOPA G DUE TO THE POTEN TIAL FOR FALSE LY ELEVA MARY JANE RESUL TS. Not Available Not Available 12/23/2024 16:53:59 12/06/19 25 12/05/2024 Compr ehens lyndsey metab olic 1999 panel - Serum or Plasm a protein [mass/volume ] in serum or plasma 6.9 text: 6.4 - 8.2 g/dL Not Available Not Available 12/23/2024 16:53:59 12/06/19 25 12/05/2024 Compr ehens lyndsey metab olic 1999 panel - Serum or Plasm a albumin [mass/volume ] in serum or plasma 3.5 text: 3.4 - 5.0 g/dL Not Available Not Available 12/23/2024 16:53:59 12/06/19 25 12/05/2024 Compr ehens [place] metab olic 1999 panel - Serum or Plasm a aspartate aminotransfe rase [enzymatic activity/vol ume] in serum or plasma 17 U/L low: 15U/Lh igh: 37U/L Not Available Not Available 12/23/2024 16:53:59 12/06/19 25 12/05/2024 Compr ehens lyndsey metab olic 1999 panel - Serum or Plasm a alanine aminotransfe rase [enzymatic activity/vol ume] in serum or plasma 18 U/L low: 14U/Lh igh: 55U/L Not Available Not Available 12/23/2024 16:53:59 12/06/19 25 12/05/2024 Compr ehens lyndsey metab olic 1999 panel - Serum or Plasm a alkaline phosphatase [enzymatic activity/vol ume] in serum or plasma 41 U/L low: 50U/Lh igh: 136U/L low Not Available Not Available 12/23/2024 16:53:59 12/06/19 25 12/05/2024 Compr ehens lyn[place] metab olic 1999 panel - Serum or Plasm a anion gap in serum or plasma by calculation 4 text: 2 - 10 mmol/L Not Available Not Available 12/23/2024 16:53:59 12/06/19 25 12/05/2024 Compr ehens lyndsey metab olic 1999 panel - Serum or Plasm a urea nitrogen/cre atinine [mass ratio] in serum or plasma 16.4 low: 6high: 26 Not Available Not Available 12/23/2024 16:53:59 12/06/19 25 12/05/2024 Compr ehens lyndsey metab olic 2000 panel - Serum or Plasm a albumin/glob ulin [mass ratio] in serum or plasma 1 text: 1.0 - 2.0 ratio Not Available Not Available 12/23/2024 16:53:59 12/06/19 25 12/05/2024 [facility] - Serum or Plasm a glomerular filtration rate [volume rate/area] in serum, plasma or blood by creatinine-b ased formula (CKD-epi 2020)/1.73 sq M >90 text: >90 mL/min /1.73 M2 NOTE: eGFR is not calcu lated for patie nts <18 years of age or gende r unkno wn. This is an estim ated GFR calcu latio n using the new CKD EPI creat inine equat ion witho ut race and so does not requi re a corre ction facto r for race. This estim ated GFR shoul d not be used for calcu latin g drug doses . Not Available Not Available 12/23/2024 16:53:59 12/06/19 25 12/05/2024 [facility] ehens lyndsey metab olic 1999 panel - Serum or Plasm a interpretati on and review of laboratory results Abnorm al Not Available Not Available 16:53:59 12/06/19 25 12/05/2024 Chori ogona dotro pin.b eta subun it [Unit s/vol ume] in Serum or Plasm a choriogonado tropin.beta subunit [units/volum e] in serum or plasma text: mIU/mL WEEKS OF PREGN ABELINO REFER ENCE RANGE S Non-p regna nt femal e < or = 2 0.2 - 1 5 - 50 1 - 2 50 - 500 2 - 3 100 - 5000 3 - 4 500 - 10,00 0 4 - 5 1000 - 50,00 0 5 - 6 10,00 0 - 100,0 00 6 - 8 15,00 0 - 200,0 00 2 - 3 MONTH S 10,00 0 - 100,0 00 Not Available Not Available 12/23/2024 16:53:59 12/06/19 25 12/05/2024 CBC W Auto Diffe renti al panel - Blood leukocytes [#/volume] in blood by automated count 5.1 text: 4.5 - 11.0 x10'3/ uL Not Available Not Available 12/23/2024 16:53:59 12/06/19 25 12/05/2024 CBC W Auto Diffe malikati al panel - Blood erythrocytes [#/volume] in blood by automated count 4.1 text: 4.20 - 5.40 x10'6/ uL low Not Available Not Available 12/23/2024 16:53:59 12/06/19 25 12/05/2024 CBC W Auto Diffe renti al panel - Blood hemoglobin [mass/volume ] in blood 13.9 text: 12.0 - 16.0 g/dL Not Available Not Available 12/23/2024 16:53:59 12/06/19 25 12/05/2024 CBC W Auto Diffe renti al panel - Blood hematocrit [volume fraction] of blood by calculation 40.2 % low: 38%hig h: 48% Not Available Not Available 12/23/2024 16:53:59 12/06/19 25 12/05/2024 CBC W Auto Diffe renti al panel - Blood MCV [entitic mean volume] in red blood cells 98 text: 81.0 - 99.0 fL Not Available Not Available 12/23/2024 16:53:59 12/06/19 25 12/05/2024 CBC W Auto Diffe renti al panel - Blood MCH [entitic mass] 33.9 pg low: 27pghi gh: 31pg high Not Available Not Available 12/23/2024 16:53:59 12/06/19 25 12/05/2024 CBC W Auto Diffe renti al panel - Blood MCHC [entitic mass/volume] in red blood cells 34.6 text: 32.0 - 36.0 g/dL Not Available Not Available 12/23/2024 16:53:59 12/06/19 25 12/05/2024 CBC W Auto Diffe renti al panel - Blood RDW 11.9 % low: 11.5%h igh: 14.5% Not Available Not Available 12/23/2024 16:53:59 12/06/19 25 12/05/2024 CBC W Auto Diffe renti al panel - Blood platelets [#/volume] in blood 221 text: 130 - 400 x10'3/ uL Not Available Not Available 12/23/2024 16:53:59 12/06/19 25 12/05/2024 CBC W Auto Diffe renti al panel - Blood platelet [entitic mean volume] in blood 9.1 text: 9.3 - 12.2 fL low Not Available Not Available 12/23/2024 16:53:59 12/06/19 25 12/05/2024 CBC W Auto Diffe renti al panel - Blood differential cell count method - blood AUTOMA MARY JANE DIFFER ENTIAL Not Available Not Available 16:53:59 12/06/19 25 12/05/2024 CBC W Auto Diffe renti al panel - Blood neutrophils/ leukocytes in blood by automated count 63.9 % Not Available Not Available 11/27 16:53:59 12/06/19 25 12/05/2024 CBC W Auto Diffe renti al panel - Blood lymphocytes/ leukocytes in blood by automated count 24.9 % Not Available Not Available 11/27 16:53:59 12/06/19 25 12/05/2024 CBC W Auto Diffe renti al panel - Blood monocytes/le ukocytes in blood by automated count 9.8 % Not Available Not Available 11/27 16:53:59 12/06/19 25 12/05/2024 CBC W Auto Diffe renti al panel - Blood eosinophils/ leukocytes in blood by automated count 0.6 % Not Available Not Available 11/27 16:53:59 12/06/19 25 12/05/2024 CBC W Auto Diffe renti al panel - Blood basophils/le ukocytes in blood by automated count 0.6 % Not Available Not Available 11/27 16:53:59 12/06/19 25 12/05/2024 CBC W Auto Diffe renti al panel - Blood immature granulocytes /leukocytes in blood by automated count 0.2 % Not Available Not Available 11/27 16:53:59 12/06/19 25 12/05/2024 CBC W Auto Diffe renti al panel - Blood neutrophils [#/volume] in blood 3.26 text: 1.80 - 7.70 x10'3/ uL Not Available Not Available 12/23/2024 16:53:59 12/06/19 25 12/05/2024 CBC W Auto Diffe renti al panel - Blood lymphocytes [#/volume] in blood 1.27 text: 1.00 - 4.80 x10'3/ uL Not Available Not Available 12/23/2024 16:53:59 12/06/19 25 12/05/2024 CBC W Auto Diffe renti al panel - Blood monocytes [#/volume] in blood 0.5 text: 0.24 - 0.86 x10'3/ uL Not Available Not Available 12/23/2024 16:53:59 12/06/19 25 12/05/2024 CBC W Auto Diffe renti al panel - Blood eosinophils [#/volume] in blood 0.03 text: 0.04 - 0.36 x10'3/ uL low Not Available Not Available 12/23/2024 16:53:59 12/06/19 25 12/05/2024 CBC W Auto Diffe renti al panel - Blood basophils [#/volume] in blood 0.03 text: 0.01 - 0.08 x10'3/ uL Not Available Not Available 12/23/2024 16:53:59 12/06/19 25 12/05/2024 CBC W Auto Diffe renti al panel - Blood immature granulocytes [#/volume] in blood 0.01 text: 0.00 - 0.49 x10'3/ uL Not Available Not Available 12/23/2024 16:53:59 12/06/19 25 12/05/2024 CBC W Auto Diffe renti al panel - Blood interpretati on and review of laboratory results Abnorm al Not Available Not Available 16:53:59 12/06/19 25 12/05/2024 Magne sium [Mass /volu me] in Serum or Plasm a magnesium [mass/volume ] in serum or plasma 2 text: 1.8 - 2.4 mg/dL Not Available Not Available 12/23/2024 16:53:59 12/06/19 25 12/05/2024 Lipas e [Enzy matic activ ity/v olume ] in Serum or Plasm a lipase [enzymatic activity/vol ume] in serum or plasma 30 text: 13 - 75 units/ L Not Available Not Available 12/23/2024 16:53:59 11/20/19 25 10/26/2024 lower extre mity elect romyo gram (PROC ) No observ ation record ed. [email or web address] [facility] [place] [address], [place], [address], 11/19/2024 21:33:37 Result Notes None recorded. Problems Name Problem SNOMED Code Status Onset Date Resolution Date Notes Provider Name and Address Organization Details Recorded Time Blephari tis of left eyelid [id number] 9102 Completed 202105/26/2022 Zeke Quintana MD Attn: Phylicia heart,[address] [place], [address], [place] - [place] 2 08:01:50 Impetigo 92033558 Completed 202106/25/2022 Zeke Quintana MD Attn: Phylicia heart,[address] [place], [address], [facility] - [facility] 2 08:02:07 Acne 47790013 Active 2021 Andrea Delarosa null, [place] [facility] 2 14:24:01 Body mass index 20-24 - normal 248633517 Active 2021 Zeke Quintana MD Attn: Phylicia heart,[address] [facility], [place], [address], [facility] - [facility] 2 08:03:59 Long-ter m drug therapy Active 2021 Zeke Quintana MD Attn: Phylicia heart,[address] [facility], [place], [address], [place] [facility] 2 08:04:27 Endometr iosis (clinica l) 570582443 Completed 202106/25/2022 Zeke Quintana MD Attn: Geemike heart,[address] [facility], [place], [address], [facility] - [facility] 2 08:05:50 Dysmenor lucy 726980651 Completed 202106/25/2022 Zeke Quintana MD Attn: Phylicia heart,[address] [facility], [place], [address], [place] [facility] 2 08:06:10 Sinoatri al sima reentran t tachycar erwin 780265694 Completed 202106/25/2022 status post ablation 2014 Zeke Quintana MD Attn: Geemike heart,[address] [facility], [place], [address], [place] [facility] 2 08:11:07 History of radiofre quency ablation operatio n for arrhythm ia 970880504 Active 2021 Zeke Quintana MD Attn: Geemike g,[address] [facility], [place], [address], [place] [facility] 2 08:11:56 Chondrom alacia of left patella 19769596895 9106 Active 2021 Zeke Quintana MD Attn: Geemike g,[address] [facility], [place], [address], [place] [facility] 2 08:13:14 Right flank pain 430160588 Completed 202210/10/2023 Zeke Quintana MD Attn: Geemike heart,[address] [place] [address], [place], [address], [place] [facility] 14:48:37 Acute pelvic pain 145026138 Completed 202210/10/2023 Zeke Quintana MD Attn: Geemike heart,[address] [facility], [place], [address], [place] [facility] 14:47:33 Cyst of ovary 10026376 Completed 202210/10/2023 Zeke Quintana MD Attn: Geemike heart,[address] [facility], [place], [address], [place] [facility] 14:48:18 Vaginal discharg e 315262696 Completed 202210/10/2023 Zeke Quintana MD Attn: Phylicia una,[address] [facility], [place], [address], [place] [facility] 14:48:42 Excessiv e belching 053897063 Completed 202210/10/2023 Zeke Quintana MD Attn: Geemike heart,[address] [facility], [place], [address], [place] [facility] 14:48:23 Abdomina l bloating 800526600 Completed 202210/10/2023 Zeke Quintana MD Attn: Phylicia una,[address] [facility], [place], [address], [place] [facility] 14:47:27 Leukopen ia 24086065 Completed 202210/10/2023 Zeke Quintana MD Attn: Phylicia una,[address] [facility], [place], [address], [place] [facility] 14:48:30 Macrocyt osis 619603976 Active 2022 Zeke Quintana MD Attn: Phylicia heart,[address] [facility], [place], [address], [facility] - SI 4 14:47:14 Anemia 331735989 Completed 202210/10/2023 Zeke Quintana MD Attn: Phylicia heart,[address] [place] [address], [place], [address], [facility] - S[facility] 4 14:47:58 Chronic nonspeci fic abdomina l pain 515632352 Active 2022 Zeke Quintana MD Attn: Phylicia heart,[address] [place] [address], [place], [address], [facility] - SI 4 14:48:10 Acute thoracic back pain 990727256 Completed 202210/10/2023 Zeke Quintana MD Attn: Phylicia heart,[address] [facility], [place], [address], [facility] - SI 4 14:47:39 Blood in urine 87798258 Completed 202204/16/2024 Zeke Quintana MD Attn: Phylicia heart,[address] [place] [address], [place], [address], [facility] - SI 4 18:25:55 Acute cystitis 38983993 Completed 202304/16/2024 Zeke Quintana MD Attn: Phylicia heart,[address] [facility], [place], [address], [facility] - SI 4 18:25:48 Problem Notes None recorded. Procedures Surgical History Date Name Laterality Status Provider Name and Address Organization Details Recorded Time Unlisted px lacrimal system completed Barry Loco [facility] 04/13/2022 00:37:22 Imaging Results None recorded. Procedure Notes None recorded. Medical Equipment None Reported. Allergies Allergen ID Allergen Name Allergen Category Reaction Reaction Severity Criticality Documentation Date Start Date Code Code System Note Provider Name and Address Organization Details Recorded Time 060553 latex environme nt,medica tion rash Not available Not available 10/05/2021 89360 91 RxNorm Fidel Montes, [employer] null, [place] [facility] 2 16:20:11 383270 Augmentin medicatio n palpitati ons moderate low 05/31/2023 86069 2 RxNorm Zeke Quintana MD Attn: Accountin g,[address] [facility], [place], [place], [address] [place] [address], [place] 3 13:41:13 451912 cortisone medicatio n Not available Not available low 05/31/2023 2878 RxNorm unkno wn react ion Zeke Quintana MD Attn: Accountin g,[address] [facility], [place], [place], [address] [place] [address] 2, [facility] - SI 3 13:42:06 955563 diltiazem Not available palpitati ons moderate low 05/31/2023 3443 RxNorm Zeke Quintana MD Attn: Accountin g,[address] [facility], [place], [place], [address] [place] [address], [place] 3 13:42:30 184794 erythromy alethea medicatio n palpitati ons moderate low 05/31/2023 4053 RxNorm Zeke Quintana MD Attn: Accountin g,[address] [place], [place], [address] [place] [address] 2, [facility] - SI 3 13:43:14 Medications Name Sig Start Date Stop Date Status Note LastModified by Organization Details LastModified Time compound drug 06/25 completed Not Available Not Available Not Available cyclobenzap rine 10 mg tablet TAKE 1 TABLET BY MOUTH EVERY DAY AT BEDTIME 11/17 completed Not Available Not Available Not Available doxycycline monohydrate 25 mg/5 mL oral suspension TAKE 20 ML BY MOUTH ONCE DAILY FOR 56 DAYS. BOTTLE ONLY STABLE FOR 14 DAYS. DISCARD REMAINING AFTER 14 DAYS. 02/16 completed Not Available Not Available Not Available nitrofurant oin macrocrysta l 50 mg capsule Take 2 capsules 4 times a day by oral route for 5 days. 02/16 completed Not Available Not Available Not Available tizanidine 2 mg tablet TAKE 1 TABLET BY MOUTH AT BEDTIME 03/13 completed Not Available Not Available Not Available clindamycin HCl 300 mg capsule TAKE 1 CAPSULE BY MOUTH THREE TIMES DAILY 05/31 completed Not Available Not Available Not Available cetirizine 10 mg tablet TAKE 1 TABLET BY MOUTH ONCE DAILY 11/17 completed Not Available Not Available Not Available azithromyci n 250 mg tablet TAKE 2 TABLETS BY MOUTH ON DAY 1, AND THEN TAKE 1 TABLET BY MOUTH ONCE A DAY ON DAY 2 THROUGH DAY 5 11/17 completed Not Available Not Available Not Available aspirin 325 mg tablet TAKE 1 TABLET BY MOUTH TWICE DAILY 10/09 completed Not Available Not Available Not Available fluconazole 150 mg tablet TAKE 1 TABLET BY MOUTH ON DAYS ONE, THREE, AND SEVEN. 05/31 completed Not Available Not Available Not Available meloxicam 15 mg tablet TAKE 1 TABLET BY MOUTH ONCE DAILY 06/25 completed Not Available Not Available Not Available phenazopyri dine 200 mg tablet Take 1 tablet 3 times a day by oral route for 2 days. 02/16 completed Not Available Not Available Not Available ondansetron HCl 4 mg tablet TAKE 1 TABLET BY MOUTH ONCE DAILY 11/17 completed Not Available Not Available Not Available prednisone 20 mg tablet TAKE 2 TABLETS BY MOUTH ONCE DAILY FOR 4 DAYS 11/17 completed Not Available Not Available Not Available alendronate 70 mg tablet TAKE 1 TABLET BY MOUTH ONCE A WEEK IN THE MORNING AT LEAST 30 MINUTES BEFORE FIRST FOOD, BEVERAGE OR MEDICATIO N OF THE DAY 06/25 completed Not Available Not Available Not Available prednisone 5 mg tablet 11/14 completed Not Available Not Available Not Available metronidazo le 500 mg tablet TAKE 1 TABLET BY MOUTH TWICE DAILY FOR 7 DAYS 11/17 completed Not Available Not Available Not Available ciprofloxac in 500 mg tablet Take 1 tablet every 12 hours by oral route for 5 days. 11/05 completed Not Available Not Available Not Available sulfamethox azole 800 mg-trimetho prim 160 mg tablet TAKE 1 TABLET BY MOUTH TWICE DAILY FOR 5 DAYS 05/31 completed Not Available Not Available Not Available triamcinolo ne acetonide 0.1 % topical cream APPLY TO AFFECTED AREA ON RIGHT HEEL RASH TOPICALLY TWICE DAILY FOR 30 DAYS 11/17 completed Not Available Not Available Not Available ketorolac 10 mg tablet TAKE 1 TABLET BY MOUTH EVERY 6 HOURS NEEDED FOR PAIN 11/17 completed Not Available Not Available Not Available oxycodone-a cetaminophe n 5 mg-325 mg tablet TAKE 1 TO 2 TABLETS BY MOUTH EVERY 4 HOURS NEEDED FOR PAIN . DO NOT EXCEED 6 PER 24 HOURS 10/09 completed Not Available Not Available Not Available propranolol 40 mg tablet TAKE 1 TABLET BY MOUTH ONCE DAILY 06/25 completed Not Available Not Available Not Available famotidine 20 mg tablet Take 1 tablet twice a day by oral route for 30 days. 05/31 completed Not Available Not Available Not Available amitriptyli ne 25 mg tablet 06/25 completed Not Available Not Available Not Available prednisolon e acetate 1 % eye drops,suspe nsion INSTILL 1 DROP INTO BOTH AFFECTED EYE(S) 4 TIMES DAILY FOR 7-10 DAYS. SHAKE WELL BEFORE EACH USE 05/31 completed Not Available Not Available Not Available dicyclomine 20 mg tablet 06/25 completed Not Available Not Available Not Available cephalexin 500 mg capsule TAKE 2 CAPSULES BY MOUTH EVERY 12 HOURS 06/25 completed Not Available Not Available Not Available cephalexin 250 mg/5 mL oral suspension TAKE 10 ML BY MOUTH TWICE DAILY FOR 7 DAYS, DISCARD REMAINDER AFTER 7 DAYS 02/16 completed Not Available Not Available Not Available diclofenac potassium 50 mg tablet TAKE 1 TABLET BY MOUTH TWICE DAILY WITH FOOD 03/13 completed Not Available Not Available Not Available gabapentin 300 mg capsule TAKE 1 CAPSULE BY MOUTH THREE TIMES DAILY 11/17 completed Not Available Not Available Not Available cephalexin 500 mg tablet Take 1 tablet every 6 hours by oral route for 5 days. 11/14 completed Not Available Not Available Not Available hydrocortis one 2.5 % topical cream APPLY 1 DOSE TOPICALLY TO THE EYELIDS TWICE DAILY NEEDED FOR UP TO ONE MONTH 11/17 completed Not Available Not Available Not Available mupirocin 2 % topical ointment APPLY A SMALL AMOUNT TO THE CHIN BY TOPICAL ROUTE 3 TIMES PER DAY 08/23 completed Not Available Not Available Not Available metoprolol succinate ER 25 mg tablet,exte nded release 24 hr TAKE 1/2 TABLET BY MOUTH TWICE DAILY NEEDED FOR TACHYCARD IA. STOP METOPROLO L SUCCINATE 10/09 completed Not Available Not Available Not Available methylpredn isolone 4 mg tablets in a dose pack USE DIRECTED 05/31 completed Not Available Not Available Not Available ondansetron 4 mg disintegrat ing tablet DISSOLVE 1 TABLET IN MOUTH EVERY 8 HOURS NEEDED FOR NAUSEA AND FOR VOMITING 11/17 completed Not Available Not Available Not Available fluticasone propionate 50 mcg/actuati on nasal spray,suspe nsion USE 1 SPRAY(S) IN EACH NOSTRIL 30 MINUTES BEFORE BED 11/17 completed Not Available Not Available Not Available dicyclomine 10 mg capsule 06/25 completed Not Available Not Available Not Available loratadine 10 mg tablet 06/25 completed Not Available Not Available Not Available cyclobenzap rine 5 mg tablet TAKE 1 TABLET BY MOUTH THREE TIMES DAILY NEEDED FOR MUSCLE SPASM 11/17 completed Not Available Not Available Not Available azelaic acid 15 % topical gel 11/17 completed Not Available Not Available Not Available metoprolol tartrate 25 mg tablet TAKE 1/2 (ONE-HALF ) TABLET BY MOUTH TWICE DAILY NEEDED (TACHYCAR ERWIN) active Not Available Not Available No t Available hydrocodone 7.5 mg-acetamin ophen 325 mg/15 mL oral solution TAKE 15 ML BY MOUTH EVERY 6 HOURS NEEDED FOR PAIN 02/16 completed Not Available Not Available Not Available nitrofurant oin monohydrate /macrocryst als 100 mg capsule Take 1 capsule every 12 hours by oral route for 5 days. 10/09 completed Not Available Not Available Not Available cefdinir 250 mg/5 mL oral suspension TAKE 6 ML BY MOUTH TWICE DAILY FOR 10 DAYS 11/17 completed Not Available Not Available Not Available Soolantra 1 % topical cream 11/17 completed Not Available Not Available Not Available Zafemy 150 mcg-35 mcg/24 hr transdermal patch 08/23 completed Not Available Not Available Not Available Vitals Date Recorded Body height Body mass index (BMI) Body weight Oxygen saturation Oxygen saturation in Arterial blood by Pulse oximetry Heart rate Body temperature Systolic blood pressure Diastolic blood pressure Provider Name and Address Organization Details Last Updated DateTime 4 156.21 cm 27.2 kg/m2 89996.2 9 g 99 % 99 % 82 /min 98 [degF] 130 mm[Hg] 83 mm[Hg] Zita Ureña [place] - [facility] 4 14:29:09 Date Recorded Body height Body mass index (BMI) Body weight Oxygen saturation Oxygen saturation in Arterial blood by Pulse oximetry Heart rate Body temperature Systolic blood pressure Diastolic blood pressure Provider Name and Address Organization Details Last Updated DateTime 5 156.21 cm 27 kg/m2 17538.8 9 g 97 % 97 % 100 /min 97.5 [degF] 119 mm[Hg] 88 mm[Hg] Zita Ureña MA [facility] 5 10:50:49 Date Recorded Body height Body mass index (BMI) Body weight Body temperature Oxygen saturation Oxygen saturation in Arterial blood by Pulse oximetry Heart rate Systolic blood pressure Diastolic blood pressure Provider Name and Address Organization Details Last Updated DateTime 3 156.21 cm 27.5 kg/m2 91296.3 7 g 99.1 [degF] 98 % 98 % 101 /min 129 mm[Hg] 83 mm[Hg] Zita Ureña [place] - [facility] 3 16:15:15 Date Recorded Body height Body temperature Oxygen saturation Oxygen saturation in Arterial blood by Pulse oximetry Heart rate Systolic blood pressure Diastolic blood pressure Provider Name and Address Organization Details Last Updated DateTime 3 156.21 cm 98.7 [degF] 96 % 96 % 86 /min 139 mm[Hg] 81 mm[Hg] Hari Damian [place] - [facility] 3 13:03:33 Date Recorded Body height Body mass index (BMI) Body weight Oxygen saturation Oxygen saturation in Arterial blood by Pulse oximetry Heart rate Body temperature Systolic blood pressure Diastolic blood pressure Provider Name and Address Organization Details Last Updated DateTime 3 156.21 cm 26.5 kg/m2 12742.8 7 g 95 % 95 % 116 /min 98 [degF] 143 mm[Hg] 85 mm[Hg] Zita Ureña [place] - [facility] 3 15:42:42 Social History Question Answer Notes LastModified by Organizat ion Details LastModified Time Tobacco Smoking Status Never Smoker Fidel Montes CMA null, [place] [facility] 10/05/2021 16:20:50 Do You Have An Advance Directive? No Information not available 06/24/2023 Are You Blind Or Do You Have Difficulty Seeing? No Information not available 06/24/2023 What Is Your Level Of Caffeine Consumption? Moderate [email or web address] Information not available 08/23/2022 Are You Deaf Or Do You Have Serious Difficulty Hearing? No Information not available 06/24/2023 What Type Of Diet Are You Following? REGULAR Information not available 06/24/2023 What Was The Date Of Your Most Recent Tobacco Screening? 11/17/2024 Information not available 11/17/2024 Do You Use Your Seat Belt Or Car Seat Routinely? Yes Information not available 06/24/2023 Sex: Unknown Functional Status Question Answer Note LastModified by Organizat ion Details LastModified Time Do you use any illicit or recreational drugs? No Information not available 10/05/2021 Do you or have you ever used any other forms of tobacco or nicotine? No Information not available 10/05/2021 What is your level of alcohol consumption? None Information not available 10/05/2021 Are you currently employed? Yes Information not available 06/24/2023 Are you able to care for yourself? Yes Information n ot available 06/24/2023 What is your exercise level? Occasional Information not available 06/24/2023 Mental Status Question Answer Note LastModified by Organization D etails LastModified Time Do you feel stressed (tense, restless, nervous, or anxious, or unable to sleep at night)? [id number] Information not available 10/10/2023 Family History Nothing Reported. Medical History No medical history recorded. Gynecological HistoryNo gynecological history recorded. Obstetrics History GPAL:G 0 P 0 0 0 0 Immunizations Vaccine Type Date Status Note Provider Nam e and Address Organization Details Recorded Time COVID-19, mRNA, LNP-S, PF, 30 mcg/0.3 mL dose 10/27/2020 completed [place] poe, [place] [facility] 05/22/2022 10:38:16 COVID-19, mRNA, LNP-S, PF, 30 mcg/0.3 mL dose 10/06/2020 [place] poe[place] [facility] 05/22/2022 10:38:16 Influenza, split virus, quadrivalent, PF 10/16/2019 completed [place], [place] - [facility] 05/22/2022 10:38:16 Past Encounters Encounter ID Performer Location Encounter Start Date Encounter Closed Date Diagnosis/Indication Diagnosis SNOMED-CT Code Diagnosis ICD10 Code Diagnosis Note [id number] [facility] [address] [address] 10/05/2021 16:01:31 10/09/2021 09:33:18 Chondromalacia of left patella [id number] 10013 M22.42 Acute, unresolved . MRI on 09/28 showing chondromal acia of patella. Will start PT on 10/06. Follows up with Orthopedic s at [facility].- Continue to f/u with orthopedic s at 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 Follows [facility] . Not currently on medication . There seems to be confusion on which medication s she should be on. Tachycardi c today, in office, but asymptomat ic.- Discussed with patient to call to discuss medication s with cardiologi st [id number] Jonh Bui MD [facility] [address] [address] 11/09/2021 16:44:41 11/10/2021 11:54:46 Acute urinary tract infection 473460854 N39.0 Acute- Symptomati c, UA with Leukocyte esterasePl an- Keflex 500 mg QID x 5 days- Follow up as directed for recurrent UTIs- Consider swab for BV if symptoms persist Tachycardia 5391174 R00. 0 Noted on VS, but not on physical exam. Likely error with initial vital signs. [id number] Cristobal Stewart MD [facility] 47 3 [facility] [address] [place] [address] 03/01/2022 13:58:47 03/05/2022 11:40:46 Intolerant of heat 07916194 R20.8 Acute. Self reported subjective fever last week and has hx of constipati on and diarrhea. DDx: Subjective fever 2/2 to humidity and weather vs hyperthyro idism vs premature menopause- TSH with Free T4 ordered- Afebrile in office today, less likely to be infectious etiology- Pending labs, may simply to monitor since x1 episode of subjective fever and x1 episode each of constipati on and diarrhea Dysmenorrhea 398788878 N 94.6 Chronic. Cyclic. Hx of endometrio sis and hemorrhagi c cysts. S/P ex lap for endometrio sis removal. Back pain has been additional ly painful during this last period. Recently saw [facility] and they were considerin g ordering a transabdom inal and transvagin al U/S, with the hx of endometrio sis and hemorrhagi c cysts.- Transabdom inal and transvagin al U/S ordered- Discussed use of tylenol for pain- Pt reports chiropract or told her not to take NSAIDS- Pt also has the pills from the chiropract or, that she states is beneficial Low back pain 878447260 M54.50 Chronic low back pain. Pain has worsened with her period this month. Pain worse when she bends at the waist. No red flag symptoms. Pt has had imaging in the past; however, we do not have any in our records. On PE, paraspinal muscles are tight and has no erythema, swelling, or skin changes.- Release of records for chiropract or Yu: Imaging and clinic notes- Pt would like to continue seeing the chiropract or- Pt is taking 'anti inflammato ry' and 'pain control' CBD infused pills given to her by chiropract or- D/w pt that pills like that are variable and cannot say if the medication s will be efficaciou s or comment on the SE profile- Pt reports that it is mainly CBD and [facility] Wart. Labeling of pills do not include contents. Pt states that they have been beneficial - D/w pt she can use tylenol and ibuprofen; however, pt does not want to take ibuprofen b/c it previously caused GI upset despite taking with food- Consider sports med, pending imaging, and home exercises to strengthen lower back Constipation 45720233 K5 9.00 - Discussed increased hydration and fiber [id number] MARY WHITNEY DO [place] [address] [address] [address] 04/10/2022 17:02:46 04/13/2022 13:37:09 Blepharitis of left eyelid [id number] 28139 H01.006 DDx includes blephariti s vs stye vs conjunctiv itis. Symptoms ongoing x 1wk, tenderness to palpation of left lower eyelid. Denies vision changes. No improvemen t with OTC Claritin or ice packs. Hx tear duct surgery as an .- Recommend OTC Artificial Tears eye drops, warm compresses , & lid massage/wa shing.- Consider adding topical vs oral antibiotic s for refractory symptoms.- Recommend avoiding use of mascara while eyelid inflamed.- Consider referral to eye doctor if symptoms don't improve w/ conservati ve management .- F/u w/ PCP in 1mo, sooner PRN. [id number] Pratibha Kimbrough MD [place] [address] [address] 05/22/2022 10:19:51 05/28/2022 13:17:50 Impetigo 87429784 L01.00 Acute, likely secondary to excoriatio ns of acne and moisture from face mask.- Topical mupirocin Acne 62338841 L70.9 Chronic, possible hormonal acne based on chin distributi on and worse with menstrual cycles. Using some kind of OTC treatment but not sure what.- Advised to use gentle cleanser and moisturize r- Consider adapalene once current irritation is resolved- f/u with PCP Ankle pain 846075917 M25 .579 Acute on chronic, suspect very mild sprain of left ankle superimpos ed on chronic Achilles insertiona l tendinopat hy.- Provided with handout for Achilles tendinopat hy stretches/ exercises- Patient declines PT- f/u with PCP [id number] Zeke Quintana MD [facility] [address] [facility] [place] [address] [place] [address] 08/23/2022 11:36:19 08/24/2022 11:02:44 Right flank pain 688987638 R10.9 - symptoms suggestive of upper urinary tract infection, despite negative urinalysis - send urine for culture- empiric treatment with ciprofloxa alethea, phenazopyr idine Acute pelvic pain 460876 005 R10.2 given symptoms and history of ovarian cysts, will order pelvic ultrasound , complete Cyst of ovary 33658563 N 83.621 [id number] Zeke Quintana MD [facility] [address] [place] [address] 11/05/2022 13:27:47 11/05/2022 15:45:37 Overweight 175755335 E66.3 Bilateral ankle joint pain [id number] 0976502 M25.571 M25.572 with history of ankle injuries and heel injuries, stress fractures of the calcaneus reportedly . Right was first and then the left more recently at work with no date or specific injury. Zero swelling or bruising reported, she states it's an internal bruise. Exam and ambulation completely normal. Requesting MRIs. I explained to her at great length that without injury and a normal exam, there is no indication for MRI. We will get xrays to make sure no occult fracture or obvious ligamentou s injury and refer back to her application integration specialist she has seen before Tolu Wallis. She states he wanted to get MRI of the foot, but then in another sentence said he referred her to a chiropract or because it wasn't a foot problem. Very difficult historian. [id number] Zeke Quintana MD [facility] [address] [place] [address] 03/13/2023 15:30:57 03/27/2023 11:00:46 Vaginal discharge [id number] N89.8 Encouraged continued use of clindamyci n to completion Follow up with gynecology for ongoing issues Excessive belching [id number] R14.2 unclear ideology, patient may need esophagoga stroduoden oscopytrea t with H2 joseluis initially and monitor for improvemen t Abdominal bloating 06345 9008 R14.0 - encouraged use of over-the-c ounter symptom treatment medication including simethicon e Leukopenia [id number] D72. 819 very mildly decreased, possible variationa l normalNo clear evidence of acute infection, consider repeat lab work in one month Macrocytosis [id number] D 75.89 repeat labwork, check vitamin B 12 and folic acid levels Anemia [id number] D64.9 Chronic no nspecific abdominal pain [id number] R10.9 given prolonged symptoms, Will refer to gastroente rology for additional ration [id number] Zeke Quintana MD [facility] [address] [place] [address] 05/31/2023 12:23:34 06/03/2023 11:44:37 Acute thoracic back pain [id number] M54.6 - differenti al diagnosis includes musculoske letal, genitourin nilsa, and neurologic potential sources- await urology visit Blood in urine 98455096 R31.9 + blood, no nitrates or leukocyte esterase in urinalysis - to see urology at 2 p.m. - defer culture, additional imaging to them- current symptoms not strongly suggestive of renal colic, nor sciatica- unclear etiology for hematuria [id number] Zeke Quintana MD [facility] [address] [place] [address] 06/24/2023 15:16:41 06/25/2023 09:47:17 Pre-surgery evaluation [id number] Z01.818 Presently clinically stable for scheduled surgery Avoidance of Aspirin or NSAIDS 5-7 days prior to surgery or as directed by surgeon Cardiovasc ular clearance per cardiology / electrophy siology - Dr. Ellis Labs: ER labs from 05/31 - creatinine 0.85 Adriel (Revised) Score: 0, Class I (Very Low Risk)Low perioperat lyndsey cardiovasc ular risk. No specific precaution s at this time. Patient to call with any changes in present status [id number] Zeke Quintana MD [facility] [address] [place] [address] 10/10/2023 14:03:35 10/14/2023 14:02:34 Urinary symptoms [id number] R39.9 # UTI, uncomplica mary jane Urine dipstick: neg leukocyte esterase, neg nitrites, neg blood Start empiric antibiotic Nitrofuran toin 100 mg bid X 5 days Consider cranberry juice for symptom-re lief Phenazopyr idine 200 mg 3 times daily x 2 days if needed for comfort (turns urine orange, sometimes can affect contact lenses) No urine culture indicated Call if not improving in 48 hoursPatie nt voices understand ing and agreement with plan [id number] Angelina Porras MD [facility] [address] [facility] [address] 11/17/2024 10:08:39 11/18/2024 10:48:48 Left tarsal tunnel syndrome [id number] G57.52 [facility], [facility] (not treated well with Dr. Falk). [facility] but thinks that [facility] also turned down her case, but will try. Has two upcoming appt with different podiatry groups for opinions as well. I explained at least 3 times that as long as she is still seeking further definitive treatment by ortho and/or podiatry, until she decides that she is finished and at her skilled nursing baseline, and I have those recommenda tions and records by a application integration specialist , I will only provide temporary 6 month placard. She does not agree or understand . I told her that this should NOT be a permanent condition. She then says that her SVT should qualify her for a placard, and told her that this is also NOT a condition the prohibits her from walking from a normal parking spot. She has had no issues since her ablation in 2016. Again she is difficult to understand and is demanding permanent placard which at this time she does not qualify. Health Concerns Section Related Observation LastModified by Organization Detai ls LastModified Time None Recorded Concern Status LastModified by Organization Details LastModified Time None Recorded Advance Directives Directive N: Payers Encounter Date Sequence Insurance Name Policy Number Policy Lyles Covered Member ID Lyles Member ID Guarantor Name 03/13/2023 1 [employer] (PPO) [id number] Sreedhar Floyd [id number] Gale Reedlarney 05/31/2023 1 [employer] Sreedhar Floyd [id number] Gale McAlarney 06/24/2023 1 [employer] Sreedhar Floyd [id number] Gale McAlarney 10/10/2023 1 [employer] Sreedhar Floyd [id number] Gale McAlarney 11/17/2024 1 [employer] Sreedhar Floyd [id number] Gale McAlarcarmen Notes Date Note Type Note Provider Name and Address Organization Details Recorded Time 3 text/html Back PainReported bypatient.Location:pain radiating to the buttocks;pain radiating to the legs(rt side into the groin) Quality:dull Severity:same Alleviating Factors:rest; relieved by changing position Associated Symptoms:no fever; no weak limbs; no numbness of the legs/feet; no tingling; no incontinence; no shortness of breath; belching ,bloating POST EMERGENCY ROOM VISIT/SUBJECTIVE: The patient presents in follow-up from recent emergency department visit to [facility] on 03/08/23, with complaint of vaginal bleeding and back pain Records available, reviewed:Diagnosis: symptoms suggestive of endometriosisLabs: urinalysis, urine test, CMP, lipase, CBC with differential-- minimally low RBC and WBC counts-- slight macrocytosisImaging: essentially normal CT abdomen and pelvis, but for what appear to be small hemngiomas of the liverIn department medications: toradol injection, 15 mg, normal saline bolusDischarge medications: no medications on discharge Current status:- patient seems bothered, as she was expecting a call from the emergency department provider-- her urinalysis did not reflex to culture-- STI testing incomplete in our records-- she reports something was detected, and she has since 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 All other systems reviewed and negative.-Aws Developer/Nursing note reviewed.- Zeke Quintana MD Attn: Accounting,[address] [facility], [place], [address], [place] [facility] 03/26/2023 19:39:12 3 text/html Back PainReported bypatient.Location:pain radiating to the legs(tightness on her leg) Quality:sharp; deep under her rib cage pain Severity:worsening;sever e (8-10);interference with sleep Duration:acute Context:hasdkidney infection and possibly UTI Alleviating Factors:rest; relieved by changing position Aggravating Factors:movement/positio cristela;twisting;flexing back;extending back; breathing deeply Associated Symptoms:no fever; no weak limbs; no numbness of the legs/feet; no tingling; no incontinence; no shortness of breath ACUTE VISIT/SUBJECTIVE: Gale presents with ongoing thoracic back pain and dysuria, requesting follow-up urinalysis after being seen at [facility] Emergency Department on - treated for urinary tract infection - + leukocyte esterase, nitrites and blood, 100 WBC/hpf- took trimethoprim-sulfamethox azole to completion- dysuria somewhat improved-- reports she has been told she may have chronic dysuria secondary to another condition (interstitial cystitis?) - began having thoracic back - in the past two weeks, no known injury-- radiates to anterior right chest-- no rash-- reports pain worsens with deep inspiration and chest torsion-- reports pain/tightness down right lower extremity - seeing next step foot and ankle-- reports diagnosed with stress fracture left heel-- reports being scheduled for surgery Pertinent past medical, surgical, family and social history reviewed and updated as needed. Pertinent positives and negatives as noted in HPI. All other systems reviewed and negative. - Aws Developer/Nursing note reviewed. - Zeke Quintana MD Attn: Accounting,[address] [facility], [place], [address], [facility] 05/31/2023 14:00:07 3 text/html PREOPERATIVE VISIT/SUBJECTIVE: Diagnosis: left foot and ankle pain Procedure: left retrocalcaneal exostectomy, left achilles tendon repair Surgeon: Deng Singh DPM Date Of Surgery: 07/01/23 No complications from previous anesthesia Patient has no active cardiac conditions No history of coronary artery disease or prior myocardial infarction No history of congestive heart failure No history of insulin-dependent diabetes mellitus No history of chronic kidney disease on hemodialysis Good functional status. Patient is able to walk four blocks or climb two flights of stairs Patient denies chest pain, dyspnea, or palpitations during the last six months - [facility] sent letter of cardiac clearance Pertinent past medical, surgical, family and social history reviewed and updated as needed. Pertinent positives and negatives as noted in HPI. All other systems reviewed and negative. - Aws Developer/Nursing note reviewed. - Zeke Quintana MD Attn: Accounting,[address] [facility], [place], [address], [facility] 06/24/2023 16:59:21 4 text/html Urinary FrequencyReported bypatient.Quality:sympto ms worse in the evening; symptoms worse during the day Severity:moderate Duration:every 30 minutes Onset/Timing:actual date: (10/08/23); constant Associated Symptoms:no chills; no pain with urination; normal emptying of bladder; no blood in the urine; no hesitancy; normal libido; no nausea; no vomiting; no urine odor; no incontinence; no fever; no urge incontinence;abdominal pain(bloating lower rt);back pain(rt lower back);constipation;diarr hea;dribbling(sometimes) ;nocturia;straining(some times);feelings of urgency ACUTE VISIT/SUBJECTIVE: Gale presents with 2 day history of urinary symptoms, with- urinary frequency- urgency- low abdominal pain- no hematuria- not taking any meds for symptoms- no fevers or chills- no nausea, vomiting, or diarrhea - occasional intermittent loose stools She notes she is currently seeing SAIDA Tobar with Dr. Funes's office, for rosacea- she reports they don't know how to dose liquid doxycycline, which she needs since she has trouble with pills Pertinent past medical, surgical, family and social history reviewed and updated as needed. Pertinent positives and negatives as noted in HPI. All other systems reviewed and negative. - Aws Developer/Nursing note reviewed. - Zeke Quintana MD Attn: Accounting,[address] [facility], [place], [address], [facility] 10/10/2023 15:23:08 5 text/html pt said that she has paper work for you, and pt needs help finding a ortho doctor NCV/DAVID Woody podiatry recently. 10/26/24 and 03/08/21. Tarsal Tunnel left ankle was diagnosed. She has two upcoming appt to discuss options with two different podiatrists. She has been flagged or declined for her case by [facility] and [facility]. She doesn't know why. She has been VERY unhappy with her 07/20 surgical outcome and has sought many second and third opinions. Still symptomatic, and has tried lots of otc braces and splints. Does not want to purchase custom splint until she gets all of her options. Wanting permanent parking placard. SAIDA Soria Attn: Accounting,[address] [facility], [place], [address], [facility] 11/17/2024 14:04:46 OBGyn Episode No OBEpisode recorded.
[2024-12-24 14:13] LABS: Hematocrit 40.4 % (37.0-47.0); Hemoglobin 13.7 g/dL (12.0-15.0)
== END 2024-12-24 13:30 | disposition home or self-care (01) ==
PROVIDERS: Visit Provider Obstetrics & Gynecology
DX: N80.9 Endometriosis, unspecified (principal); Z01.818 Encounter for other preprocedural examination
CPT/HCPCS: 36415; 85014; 85018; 86850; 86900; 86901

== ENCOUNTER 2024-12-31 02:58 | Day surgery (SDC) | payer BC, SELFPAY ==
[2024-12-24 11:01] VITALS: BMI 25.3
--- NOTE | 2024-12-24 11:02 | PC.NURSE ---
Report to the Outpatient Waiting Room, entrance under the green pavilion located off [facility], at time _0730_ on date _[id number]_. Planned Procedure Time: _0930_.? Time changes happen often and if your time is changed the preop area will call you the afternoon before. - You and your visitor will be asked to self-screen and do not enter if you have any COVID symptoms. Please call surgeon if you need to reschedule. - A mask is optional within the hospital at this time. Patients may have clear liquids (water, carbonated beverages, clear teas, apple juice) until 3 hours prior to surgery with a maximum of 20 ounces. - No food from midnight until time of surgery and no smoking, or chewing tobacco (or any form of nicotine). No chewing gum, candy or mints. Take only the following medications with a SIP of water on the morning of surgery: __Metoprolol and if needed Ondansetron/Zofran.___ DO NOT STOP ANY OF YOUR OTHER PRESCRIPTION MEDICATIONS PRIOR TO SURGERY EXCEPT THE FOLLOWING Hold all vitamins and supplements for 3 days per anesthesiologist. Medications to discontinue per physician Date to take last ullm___[id number]____ Please no make-up, nail maltese, hairspray, perfume, deodorant, or body powder the day of surgery.? No jewelry (including any body piercings) or valuables the day of surgery, leave them at home.? Please take a shower or bath the night before, or the morning of, surgery with an antibacterial soap.? Wear comfortable, loose fitting clothing. - Jewelry must be removed prior to entering the operating room.? Rings and piercings that are not removed may be cut off. - The hospital will not accept responsibility for valuables.? - Please leave all valuables, including medications, at home the day of surgery. If you are going home after surgery, a licensed driver retraining instructor must drive you home.? - NO public transportation without another adult if you receive anesthesia. - We recommend that an adult stay with you for 24 hours following discharge. - We also recommend that you do not drive, make important decision, drink alcoholic beverages, or take any drugs that were not prescribed by your health care provider for at least 24 hours after your discharge time. Follow any additional instructions given to you from your surgeon. Telephone instructions given to __Caitlin__and asked if any additional questions and then verbalized understanding. Patient advised to call surgeon office or pre surgery nurse liaison [phone] if any additional questions.
--- NOTE | 2024-12-29 07:12 | PM.IMHP ---
H&P: HPI History of Present Illness Date/Time: 12/29/24 07:12 Chief Complaint: Pelvic pain and irregular bleeding Narrative: 34 year admitted for diagnostic laparoscopy hysteroscopy dilatation curettage she is on chromopertubation there. She complains of severe pain dyspareunia irregular bleeding. She has had GI workup and multiple visits with other physicians with. The imaging has been helpful. Risks and benefits of this procedure reviewed including but not exclusive of , aspiration pneumonia, bleeding, transfusion, perforation injury to bowel, bladder, ureters, or other internal organs with need for open laparotomy. She received the ACOG handouts entitled laparoscopy as well as hysteroscopy. She had all questions answered. She asked to proceed Review of Systems Review of Systems: All systems reviewed & are unremarkable except as noted in HPI and below Constitutional: Constitutional: Denies chills, Denies fever(s) and Denies weakness Musculoskeletal: Musculoskeletal: Denies arthralgias, Denies joint swelling and Denies muscle cramps Neurologic: Denies focal weakness and Reports numbness PMFSH Past Medical History Medical History Pelvic floor dysfunction Endometriosis Arthritis Anxiety Diarrhea SVT (supraventricular tachycardia) Seasonal allergies Congestion of nasal sinus Wears glasses Intractable heel pain UTI (urinary tract infection) Ovarian cyst, left Surgical History Surgical History History of gynecological procedure (09/09/20) adhesions removed History of foot surgery bilateral shockwave tx, 2017 History of prior ablation treatment AVRNT and Atrial Flutter 2016 History of hysteroscopy (10/16/19) xs 2 - DX laparoscopy - cyst removal / endometriosis History of laparoscopy 2020 Family History Family History Grandparent COPD (chronic obstructive pulmonary disease) Breast cancer paternal grandmother Other Arthritis Social History Social History Smoking status: Never smoker Alcohol intake: never Substance use: never Substance use type: does not use Living arrangements: with family Gender identity (if verbalized by the patient): Female Sexual Orientation (if Verbalized by the Patient): Straight or Heterosexual Spiritual care concerns: No Meds Home Medications and Allergies Home Medications ?Medication ?Instructions ?Recorded ?Confirmed ?Type ondansetron HCl 4 mg tablet 4 mg PO Q6H PRN nausea and 02/03/22 12/24/24 Rx vomiting #20 tabs cyclobenzaprine 10 mg tablet 10 mg PO HS PRN spasms 12/24/24 12/24/24 History metoprolol tartrate 25 mg tablet 12.5 mg PO Q12H PRN tachycardia 12/24/24 12/24/24 History multivitamin (Daily Multi-Vitamin 1 tablet PO DAILY 12/24/24 12/24/24 History tablet) omega 0-qyx-tjq-fish oil 1,200 mg 1 cap PO DAILY 12/24/24 12/24/24 History (144 mg-216 mg) capsule (Fish Oil) Allergies Allergy/AdvReac Type Severity Reaction Status Date / Time amoxicillin AdvReac Palpitation Verified 12/24/24 10:36 s erythromycin base AdvReac Palpitation Verified 12/24/24 10:36 s Exam Const: General: cooperative, healthy appearing, comfortable and average body habitus Nutritional Appearance: average body habitus Orientation/consciousness: oriented to person, oriented to place and oriented to time HENMT: Head: normal to inspection Resp: Effort & Inspection: normal respiratory effort Cardio: Rate: regular rate Rhythm: regular rhythm Heart sounds: S1 normal heart sound present and S2 normal heart sound present GI: Inspection: normal to inspection GI Palp: Yes abdominal tenderness : External Female Exam: normal external appearance Speculum Exam - Vagina: normal appearance of the vagina Speculum Exam - Cervix: normal appearance of the cervix Bimanual exam- vagina & uterus: uterine size normal, uterine shape normal and Uterine tenderness Bimanual Exam- Adnexa, other: tender bilaterally Assessment and Plan Assessment and plan (1) Pelvic pain: Code(s): R10.2 - Pelvic and perineal pain Status: Acute (2) Excessive bleeding: Code(s): R58 - Hemorrhage, not elsewhere classified Status: Acute Plan Will proceed with diagnostic laparoscopy/cauterization of endometriosis/hysteroscopy/dilatation curettage/chromopertubation
[2024-12-31] VITALS (7 sets, daily range): BP systolic 110–129; BP diastolic 76–91; PULSE 72–98; RESP 10–17; TEMP 36.3–37; O2SAT 97–100
--- OUTSIDE RECORDS SUMMARY | 2024-12-31 03:01 | XMS_ITS | CONTINUITY OF CARE DOCUMENT ---
Author Name arjun díaz Address Unknown Organization [facility] Address [address] [place] [address] Phone [phone] Care Team Providers Care Manager Stars Name Role Phone Schuyler Cm MD Unavailable [phone] N/A Unavailable Unavailable INSURANCE PROVIDERS Payer name Policy type / Coverage type [place] red alliance party ID [facility] [id number]
--- OUTSIDE RECORDS SUMMARY | 2024-12-31 03:01 | XMS_ITS | Clinical Summary ---
Author Organization [facility] Address [address] [place] [address] Care Team Providers Care Solar Water Heater Installer Name Role Phone Unavailable Primary Care Provider [...] on file Legal Sex Female 5:08 PM PSYCHOLOGIST PRIVATE PRACTICE Gender Identity Not on file Sexual Orientation [...] (#1) 2024 0, 06/03/2018, 05/11/2014 COVID-19 Vaccine (2023- season) 2024 10/27/2020, 10/06/2020 HPV VACCINES Aged Out No longer eligi ble based on patient's age to complete this topic Insurance
--- OUTSIDE RECORDS SUMMARY | 2024-12-31 03:01 | XMS_ITS | Encounter Summary ---
Author Organization [facility] Address [address] [place] [address] Care Team Providers Care Foundry Engineer Name Role Phone Isela Menendez GILMER Primary Care Provider [phone] Encounter Details Date Type Department Care Team (Late st Contact Info) Description 11/25/2024 Telephone [facility] [address] [facility] Medical Office [address] [place] [address] Jennifer Forbes Social History Tobacco [...] on file Legal Sex Female 8:52 PM CONTINUOUS CRUSHER OPERATOR Gender Identity Female 07/01/2022 1:00 PM CONTINUOUS CRUSHER OPERATOR Sexual Orientation Straight 07/01/2022 1: 00 PM CONTINUOUS CRUSHER OPERATOR documented as of this encounter Plan of [...] on filedocumented in this encounter Care Teams Foundry Engineer Relationship Specialty Start Date End Date Isela Menendez [place] [address] [address] PCP - General Cushion Maker Hand 10/30/24 documented as of this encounter
--- OUTSIDE RECORDS SUMMARY | 2024-12-31 03:01 | XMS_ITS | Referral Summary ---
Author Organization [facility] Address [address] [place] [address] Care Team Providers Care Faucets Assembler Name Role Phone ShonIsela patterson GILMER Primary Care Provider [phone] Encounters Date Type Department Care Team Description 12/03/2024 Telephone [facility] [address] [facility] [address] [facility] [address] [place] [address] Jesus Matos MD 11/25/2024 Telephone [facility] [address] [facility] [address] [facility] [address] [address] Jennifer Forbes 11/24/2024 Telephone [facility] [address] [facility] [address] [facility] [address] [address] Cheryl Edmond, casting supervisor 11/24/2024 9:45 AM CDT Ancillary Procedure [facility] [address] [facility] [address] [facility] [address] [address] Irregular bleeding 11/24/2024 10:00 AM CDT Office Visit [facility] [address] Medical Office [address] [place] [address] Jesus Matos MD Menorrhagia with regular cycle (Primary Dx) 10/26/2024 Orders Only [facility] Surgeon [facility] [place] [address] Blaze Woody DPM Sural neuritis, left (Primary Dx) 10/06/2024 Orders Only [facility] Surgeon [facility] [place] [address] Blaze Woody DPM from Last 3 Months [...] bleeding. We have discussed pain control using cucs-amj-yddgrkn medications postoperatively in the expectation for some [...] on file Legal Sex Female 8:52 PM ANTIQUE FURNITURE REPAIRER Gender Identity Female 07/01/2022 1:00 PM ANTIQUE FURNITURE REPAIRER Sexual Orientation Straight 07/01/2022 1: 00 PM ANTIQUE FURNITURE REPAIRER Last Filed Vital Signs Vital Sign Reading Time Taken Comments Blood Pressure 103/76 08/03/2024 6:00 PM ANTIQUE FURNITURE REPAIRER Pulse 86 08/03/2024 6:00 PM ANTIQUE FURNITURE REPAIRER Temperature 37.2 C (98.9 F) 08/03/2024 1:52 PM ANTIQUE FURNITURE REPAIRER Respiratory Rate 18 08/03/2024 6:00 PM ANTIQUE FURNITURE REPAIRER Oxygen Saturation 100% 08/03/2024 6:00 PM ANTIQUE FURNITURE REPAIRER Inhaled Oxygen Concentration - - Weight 62.1 kg (137 lb) 09/09/2024 1:15 PM ANTIQUE FURNITURE REPAIRER Height 154.9 cm (5' 1) 09/09/2024 1:15 PM ANTIQUE FURNITURE REPAIRER Body Mass Index 25.89 09/09/2024 1:15 PM ANTIQUE FURNITURE REPAIRER Plan of Treatment Not on file Goals [...] L ORDERABLES Final Result Performing Organization Address City/State/[facility] Co de Phone Number [facility] [address] [facility] [place] [address] from Last 3 Months or Most Recently Relevant to Health Maintenance Insurance [employer] O[employer] Care Teams Faucets Assembler Relationship Specialty Start Date End Date Isela [place] [address] [place] [address] PCP - General Sanitary Inspector 10/30/24
--- OUTSIDE RECORDS SUMMARY | 2024-12-31 03:01 | XMS_ITS | Clinical Summary ---
Author Organization [facility] Address [address] [place] [address] Care Team Providers Care Python Consultant Name Role Phone ShonIsela munson GILMER Primary Care Provider [phone] Allergies Active Allergy Reactions Criticality Noted Date [...] bleeding. We have discussed pain control using nxfp-yef-vzqjcvu medications postoperatively in the expectation for some [...] Description 12/03/2024 Telephone [facility] [address] [facility] [address] [place] [address] Jesus Matos MD 11/25/2024 Telephone [facility] [address] [facility] Office [facility] [address], [place] [address] Jennifer Forbes 11/24/2024 10:00 AM CDT Office Visit [facility] [address] [facility] Office [facility] [address], [place] [address] Jesus Matos MD Menorrhagia with regular cycle (Primary Dx) 11/24/2024 9:45 AM CDT Ancillary Procedure [facility] [address] [facility] Office [facility] [address], [place] [address] Irregular bleeding 11/24/2024 Telephone [facility] [address] [facility] Office [facility] [address], [place] [address] Cheryl Edmond RN Surgery 10/26/2024 Orders Only [facility] [address] [place] [id number] Blaze Woody DPM Sural neuritis, left (Primary Dx) 10/06/2024 Orders Only [facility] [place] [address] Blaze Woody DPM from Last 3 Months [...] on file Legal Sex Female 8:52 PM COMIC ARTIST Gender Identity Female 07/01/2022 1:00 PM COMIC ARTIST Sexual Orientation Straight 07/01/2022 1: 00 PM COMIC ARTIST Obstetrics History Para Term AB IAB SAB Ectopic Multiple Livin g Live Births 0 0 0 0 0 0 0 0 0 0 0 Last Filed Vital Signs Vital Sign Reading Time Taken Comments Blood Pressure 103/76 08/03/2024 6:00 PM COMIC ARTIST Pulse 86 08/03/2024 6:00 PM COMIC ARTIST Temperature 37.2 C (98.9 F) 08/03/2024 1:52 PM COMIC ARTIST Respiratory Rate 18 08/03/2024 6:00 PM COMIC ARTIST Oxygen Saturation 100% 08/03/2024 6:00 PM COMIC ARTIST Inhaled Oxygen Concentration - - Weight 62.1 kg (137 lb) 09/09/2024 1:15 PM COMIC ARTIST Height 154.9 cm (5' 1) 09/09/2024 1:15 PM COMIC ARTIST Body Mass Index 25.89 09/09/2024 1:15 PM COMIC ARTIST Plan of Treatment Health Maintenance Due Date [...] PM CDT) Hep A IgM Nonreactive Nonreactive [facility] Comment: Interpretive Data: If Hep A IgM Ab is reported as Equivocal, a new sample should be drawn in two weeks for testing. Current interpretive data was last revised on 19. Hep B core IgM Nonreactive Nonreactive [facility] Comment: Interpretive Data If HepB Core IgM Ab is reported as Equivocal, a new sample should be drawn in two weeks for testing. Current interpretive data was last revised on 19. Hep C Ab Nonreactive Nonreactive [facility] Comment: Interpretive Data Nonreactive: Antibodies to HCV [...] last revised on 2019. HepBsAg Nonreactive Nonreactive [facility] Blood 01/21/2022 4:52 PM CDT 01/21/2022 6:25 PM CDT us Dontrell Dumont NP LAB MICROBIOLOGY - GENERA L ORDERABLES Final Result [facility] [address] [facility] Department [place] [address] from Last 3 Months or Most Recently Relevant to Health Maintenance Insurance [employer] OOS [employer] ACCESS OOS BLUE ACCESS OOS Care Teams Python Consultant Relationship Specialty Start Date End Date Isela Menendez [place] [address] [place] [address] PCP - General Patient Insurance Clerk 10/30/24
--- OUTSIDE RECORDS SUMMARY | 2024-12-31 03:01 | XMS_ITS | Patient Health Record ---
Author Organization 1 OF Julianna zuleta [facility] Address [address] [place] [address] Care Team Providers Care Tractor Mechanic Helper Name Role Phone Dr. Kenneth Lares Primary Care Provider Jeri Keith Oneal Unavailable [phone] Allergies No Known Allergies Reason For Referral No Information Social History Tobacco Use: Social History Observation Description Date Details (start date - stop date) Never Smoker NA - NA Tobacco Use/Smoking Question Answer Notes Are you a nonsmoker Problems Problem Type SNOMED Code ICD Code Onset Dates Problem Status W/U Status Risk Notes Problem 72848183 Vitamin D deficiency (E55.9) Active confirmed Plan Of Treatment No Information Insurance Providers Payer Name Payer Address Payer Phone Subscriber Number Group Number Insured Name Patient Relationship to Insured Coverage Start Date Coverage End Date [facility] [address] [place] [address] [id number] Gale Negron Self - patient is the insured Medical (General) History Medical History History ICD Code anxiety Surgical History Surgery Date(Month/Year)
--- OUTSIDE RECORDS SUMMARY | 2024-12-31 03:01 | XMS_ITS | Data Portability ---
Author Organization [place] - [facility] OFFICE Address [address] [place] [address] Care Team Providers Care Production Proofreader Name Role Phone DELFINA CRUZ Primary Care [...] ol tartrate 25 mg tablet 2018 019 Not available 0 15:42:04 Patient TargetsNo targets recorded. Patient Instructions Encounter Date Encounter Id Patient Instructions Last Modified By Organization Details Last Modified Time 07/02/2019 [id number] supraventricular tachycardia: care instructions [email or web address] Not available 07/02/2019 17:24:29 hypokalemia: car e instructions [email or web address] Not available 07/02/2019 17:26:05 08/04/2019 [id number] supraventricular tachycardia: care instructions [email or web address] Not available 10/16/2019 11:04:24 hypokalemia: car e instructions [email or web address] Not available 10/16/2019 11:04:24 Exercise advised Low cholesterol diet advised Low sodium diet advised Not available 08/04/2019 12:57:26 Scribed by Ann-Marie Johnson PA-C Not available 08/04/2019 12:57:49 03/17/2020 [id number] supraventricular tachycardia: care instructions [email or web address] Not available 03/17/2020 15:46:16 hypokalemia: car e instructions [email or web address] Not available 03/17/2020 15:46:16 Exercise advised Low cholesterol diet advised Low sodium diet advised [email or web address] Not available 03/17/2020 15:45:38 Scribed by Kirby Romero SHINGLER-BC [email or web address] Not available 03/17/2020 15:46:04 06/02/2020 [id number] supraventricular tachycardia: care instructions [email or web address] Not available 06/02/2020 11:41:01 hypokalemia: car e instructions [email or web address] Not available 06/02/2020 11:41:01 Exercise advised Low cholesterol diet advised Low sodium diet advised. [email or web address] Not available 06/02/2020 10:24:36 Scribed by Kilo Moran, MSN, PEARL DIGGER, SHINGLER-C [email or web address] Not available 06/02/2020 10:14:02 Reason for Referral [...] monit or No observ ation record ed. [email or web address] Not Available 08/27 13:45:27 08/28/19 20 08/08/2019 US, echoc ardio gram No observ ation record ed. [email or web address] Not Available 2019 08:51:35 08/28/19 20 08/09/2019 elect rocar diogr am No observ ation record ed. [email or web address] Not Available 2019 17:28:36 09/25/19 20 08/09/2019 [...] Available 2019 14:24:44 06/02/20 20 05/[facility]/[address] [facility] [facility] observ ation record ed. [email or web address] Not Available 2019 13:15:12 06/02/20 20 05/27/2020 CT, abdom en, w/o contr ast No observ ation record ed. [email or web address] Not Available 2019 05:16:36 06/02/20 20 06/02/2020 elect rocar diogr am No observ ation record ed. [email or web address] Not Available 2019 13:30:35 06/02/20 20 03/24/[address] [facility] No observ ation record [...] diogr am No observ ation record ed. [email or web address] Not Available 08/03 09:47:10 08/02/19 21 07/31/[address] [facility] No observ ation record ed. [email or web address] Not Available 08/03 09:48:01 08/04/19 21 08/02/[facility] No observ ation record ed. [email or web address] Not Available 2020 10:47:10 08/09/19 21 rhyth m strip * No observ ation record ed. [email or web address] Not Available 2020 12:41:45 Result Notes Documentation Provider Name and Address Organization Details Recorded Time Cmp, Serum Or Plasma : 06/01/20:Na 139,K 3.6,Cl 108,CO2 26.8,GLU 86,BUN 8,Cr 0.8,AST 11,ALT 18 . Ana poe [facility] 06/04/2020 13:08:33 Cbc W/ Diff : 05/31/20:WBC 4.7,RBC 7.1,HGB 14.0,HCT 40.2,PLT 226. Ana poe [facility] 06/05/2020 05:21:02 Ct, Abdomen, W/o Contrast : CT, Abdomen, W/o Contrast 05/27/20:no acute abdominal findings.no urolithiasis. Ana poe [facility] 06/05/2020 05:16:36 Xr, Chest : XR, Chest 05/31/20:no cardiopulmonary disease. [facility] 06/05/2020 05:17:36 Cmp, Serum Or Plasma : 05/31/20:Na 137,K 3.8,Cl 103,CO2 25,GLU 106,BUN 8,Cr 0.7,AST 16,ALT 14. [facility] 06/05/2020 05:21:02 Cbc W/ Diff : 06/01/20:WBC 6.0,RBC 3.74,HGB 13.0,HCT 37.2,PLT 224. [facility] 06/05/2020 05:21:02 Problems Name Problem SNOMED Code Status Onset Date Resolution Date Notes Provider Name and Address Organization Details Recorded Time Supra[facility]ricul ar tachy[facility] 6789113 [facility] 9 16:52:53 Sinus tachycardia 34979933 Active 2018 [facility] 9 17:22:22 Hypokalemia 33383732 Active 2018 [facility] 9 17:25:17 Inappropriate sinus tachycardia 131798234 Active [address] France [facility] 0 12:33:12 Problem Notes None recorded. Medical Equipment None Reported. Allergies Allergen ID Allergen Name Allergen Category Reaction Reaction Severity Criticality Documentation Date Start Date Code Code System Note Provider Name and Address Organization Details Recorded Time 9244 erythromy alethea medicatio n bradycard ia severe Not available 07/02/2019 4053 RxNorm high blood press ure Yazmin Joann [facility] 9 16:30:05 9245 clavulani c acid Not available bradycard ia Not available Not available 07/02/2019 14950 RxNorm Yazmin Joann [facility] 9 16:30:33 Medications Name Sig Start Date [...] completed Not Available Not Available Not Available [facility] Sinus Rinse with packet 08/04 completed Not [...] Updated DateTime 0 152.4 cm 24.4 kg/m2 08805.0 5 g 114 /min 99 % 99 % 140 mm[Hg] 80 mm[Hg] JENA RAYA [place] [facility] 0 12:34:47 Date Recorded Body height Body mass index (BMI) Body weight Heart rate Respiratory rate Oxygen saturation Oxygen saturation in Arterial blood by Pulse oximetry Provider Name and Address Organization Details Last Updated DateTime 0 152.4 cm 24.4 kg/m2 00726.0 5 g 105 /min 18 /min 99 % 99 % Brandee Jones [facility] 0 15:24:04 Date Recorded Systolic blood pressure Diastolic blood pressure Provider Name and Address Organization Details Last Updated DateTime 03/17/2020 98 mm[Hg] 62 mm[Hg] Melissa Peterson SHINGLER-BC [facility] 03/17/2020 15:44:20 Date Recorded Body height Body mass index (BMI) Body weight Respiratory rate Heart rate Oxygen saturation Oxygen saturation in Arterial blood by Pulse oximetry Systolic blood pressure Diastolic blood pressure Provider Name and Address Organization Details Last Updated DateTime 0 152.4 cm 22.7 kg/m2 81096.7 1 g 18 /min 98 /min 98 % 98 % 122 mm[Hg] 76 mm[Hg] RUPESH RUY [facility] 0 10:14:51 Date Recorded Body height Body mass index (BMI) Body weight Heart rate Oxygen saturation Oxygen saturation in Arterial blood by Pulse oximetry Systolic blood pressure Diastolic blood pressure Provider Name and Address Organization Details Last Updated DateTime 9 152.4 cm 24.5 kg/m2 95932.8 4 g 108 /min 99 % 99 % 110 mm[Hg] 80 mm[Hg] Yazmin Joann [facility] 9 16:26:54 Social History Question Answer Notes LastModified by [employer] Details LastModified Time Tobacco Smoking Status Never Smoker Not Available [facility]/31[facility]2020 03:30:42 Marital Status michelle [place] n not available 07/02/2019 What Was The Date Of Your Most Recent Tobacco Screening? 08/04/2019 [id number] Information not available 05/31/2020 How Many Children Do You Have? 0 [id number] Information not available 05/31/2020 How Much Tobacco Do You Smoke? No [id number] Information not available 05/31/2020 How Many Years Have You Smoked Tobacco? 0 [id number] Information not available 05/31/2020 Sex: Unknown Functional Status Question Answer Note LastModified by [employer] ion Details LastModified Time Do you or have you ever used smokeless tobacco? Never used smokeless tobacco [id number] Information not available 05/31/2020 Do you or have you ever used e-cigarettes or vape? Never used electronic cigarettes [id number] Information not available 05/31/2020 Mental Status None [...] SNOMED-CT Code Diagnosis ICD10 Code Diagnosis Note [id number] Zac Boyd MD [place] OFFICE [facility] [place] [address] 07/02/2019 16:03:06 07/02/2019 17:26:33 Supraventricular tachycardia 1617318 I47.1 hx of Aflutter and AVnRT s/p ablationEC HO, Holetr, labsrestar t Metoprolol Hypokalemia 96746060 E87 .6 pt was adised to supplement K with diet and OTC supplement swill check labs [id number] Flavio Trevizo MD [place] OFFICE [facility] [place] [address] 08/04/2019 11:51:16 10/16/2019 11:04:42 Supraventricular tachycardia 9573920 I47.1 hx of Aflutter and AVnRT s/p ablation (2014)ECHO , Holetr, labs Hypokalemia 51582116 E87 .6 pt was advised to supplement K with diet and OTC supplement swill check labs Inappropri ate sinus tachycardia 001250445 I47.1 Will start Metoprolol . [id number] Zac Boyd MD [place] OFFICE [facility] [place] [address] 03/17/2020 15:03:46 03/17/2020 16:56:29 Supraventricular tachycardia 7794878 I47.1 History of Aflutter and AVnRT s/p [...] valve leafletsrE CENT STRESS TEST NEGATIVE Hypokalemia 42287243 E87 .6 Reports K 3.7 in ER 03/11/2020, will recheck. Inappropri ate sinus tachycardia 823719900 I47.1 pt with possible autonomic dysfunctio n.This could be evaluated in tertiary center like [facility] or [facility] [id number] MD Aleksey Schumacher Office [address] [facility] [address] [place] [address] 06/02/2020 09:52:52 06/02/2020 10:47:23 Supraventricular tachycardia 4635277 I47.1 06/02/2020H ospital EKG SR/ST108 Today.Educ ation [...] valve leafletsrE CENT STRESS TEST NEGATIVE Hypokalemia 85454733 E87 .6 06/02/2020K in the ER on is 4.1Last K 3.8 on 03/11/2020 Inappropri ate sinus tachycardia 700267795 I47.1 06/02/2020p t with possible autonomic dysfunctio n.This could be evaluated in tertiary center like [facility] or [facility] Health Concerns Section Related Observation LastModified by Organization Detai ls LastModified Time None Recorded Concern Status LastModified by Organization Details LastModified Time None Recorded Advance Directives Directive None Recorded Payers Insurance Date Sequence Insurance Name Policy Number Policy Lyles Covered Member ID Lyles Member ID Guarantor Name 08/02/2020 1 [facility] () Gale Floyd [id number] aGle Floyd Notes Date Note Type Note Provider Name and Address Organization Details Recorded Time 9 text/htm l CC: PalpitationsHPI: 28 year-old woman with history of SVT s/p ablation who presents for cardiovascular evaluation. pt presented few weeks ago to [facility] due to palpitatins. She was found [...] and was found to have AVRnT in [place] 2014 her heart was skipping too much. It was 200 bpm stayed overnight , did meet EP Dr. Bautista ( [place], [place]) and she had ablation. Was told that had AVnRT and atrial flutter. She was told that AFlutter could come back in 10 yrs which could be re-ablated. Then she had ablation [place]. [place] She is on Metoprolol 12.5 BID or Metoprolol 25 BID on off since she was teenager Ablation initially discussed and she was too young. She quit Metoprolol in 01/2019. go to gym and HR usually is fine tachycardia and headache.sometime feels high HR not always HR fluctuates, usually in 100's Since she moved to [place] she saw Dr. Can at [facility], was giving Metoprolol she was told [...] tachycardia 107 bpm, NSST changes Zac poe [place] [facility] 07/02/2019 17:26:31 0 text/htm l 08/04/19 CC: Palpitations HPI: 28 year-old woman with history of SVT s/p ablation (2014) who presents for follow up. She was last seen in clinic 1 month ago. Had recent visit to ED at [facility] with cough, bronchitis 07/31/2019; albuterol therapy causing increased HR, PCP told her not to use. Has chest pain from coughing. Previously [facility] due to palpitations. She was found to have sinus tachycardia, 130 hr. At that time her cat was following her and knew something is wrong. Previous pt was in [place] she was on observationMetoprolol was given and she was diagnosed by EP with inappropriate sinus tachycardia She quit Metoprolol in 01/2019. Walks for exercise, and HR usually is fine. She was recommended to have a Tilt test, but was not done. Subsequently pt had another evaluation and was found to have AVRnT in [place] 2014 her heart was skipping too much. It was 200 bpm; stayed overnight , did meet EP Dr. Bautista ([place], [place]) and she had ablation. Was told [...] 107 bpm, NSST changes Flavio Trevizo MD [address] [place], [address], [facility] 10/16/2019 11:04:41 0 text/htm l 03/17/2020 CC: Palpitations fu HPI: 29 year-old woman with history of SVT s/p ablation (2014) who presents for follow up. She was last seen in clinic 7 months ago pm 08/04/2019. Was recently seen in the ER at [facility] 03/11/2020 for back and neck muscle spasms as well as abdominal pain, denies chest pain. Noted her potassium was 3.7.CXR was normal, She was offered pain injections but she declined.PC suggested acupuncture Pt went to [facility] few times over last few months. Was even seen by [employer] senior specialist (Dr. Smith) and had stress test which was nor,mal. stopped Toprol that he used to take before Had diarrhea since September 2019 and recently resolved on probiotic.During that time had hypokalemia. Pt had some back pain.[facility], better than before 3,2, diarrhea from September No Toprol for now neck/ shoulder pain recently. Was advised steroid injection but refused since had bad experience with that before. She was seen by EP on 03/15/2020 with [facility] and had a stress echo which was negative. She was cleared to return to normal activity and diet by Zita CONNOR at [facility]. She is tachycardia today and reports she is often tachy and does not feel it. Denies palpitations. Her BP is low Previously [facility] due to palpitations. She was found to have sinus tachycardia, 130 hr. At that time her cat was following her and knew something is wrong. Previous pt was in [place] she was on observation. Metoprolol was given and she was diagnosed by EP with inappropriate sinus tachycardia. She quit Metoprolol in 01/2019. Walks for exercise, and HR usually is fine. She was recommended to have a Tilt test, but was not done. Subsequently pt had another evaluation and was found to have AVRnT in [place] 2015 her heart was skipping too much. It was 200 bpm; stayed overnight , did meet EP Dr. Bautista ([place], [place]) and she had ablation. Was told [...] this visit, or from the past: CBC 572066 HGB 13.6, PLT 196CHEM 507866 K 3.8, CR 0.7, AST 17 ALT 11, TSH 1.53, 03/17/20 EKG: Sinus tachycardia (105 bpm), NSST /5/19 EKG: sinus tachycardia non specific Flat T [...] LOW RISK FOR CARDIAC EVENT. Zac Boyd [place], [place] - [facility] 03/17/2020 16:56:27 0 text/htm l 06/02/2020 CC: Palpitations fu HPI: 29 year-old woman with history of SVT s/p ablation (2014) who presents for follow up. She was seen in the ER at [facility] on 05/31/2020. She reported that she had a HR of 120-[address] to an appointment with [facility], which resulted her being taken down to ER. Patient is upset about ER visit. ER note reports that patient refused testing and requested to walk up to [facility] offices. Serial EKG results show SR/ST. Frequent visits to ER for urinary complaints. Reports that she was started on antibiotics for kidney infection. She reports that she is waiting to schedule and EP study with [facility] and she sees Dr. Elizondo Previously:Was recently seen in the ER at [facility] 03/11/2020 for back and neck muscle spasms as well as abdominal pain, denies chest pain. Noted her potassium was 3.7.CXR was normal, She was offered pain injections but she declined.PC suggested acupuncture Pt went to [facility] few times over last few months. Was even seen by [employer] senior specialist (Dr. Smith) and had stress test which was nor,mal. stopped Toprol that he used to take before Had diarrhea since September 2019 and recently resolved on probiotic.During that time had hypokalemia. Pt had some back pain.[facility], better than [...] activity and diet by Zita CONNOR at [facility]. She is tachycardia today and reports she is often tachy and does not feel it. Denies palpitations. Her BP is low Previously [facility] due to palpitations. She was found to have sinus tachycardia, 130 hr. At that time her cat was following her and knew something is wrong. Previous pt was in [place] she was on observation. Metoprolol was given and she was diagnosed by EP with inappropriate sinus tachycardia. She quit Metoprolol in 01/2019. Walks for exercise, and HR usually is fine. She was recommended to have a Tilt test, but was not done. Subsequently pt had another evaluation and was found to have AVRnT in [place] 2014 her heart was skipping too much. It was 200 bpm; stayed overnight , did meet EP Dr. Bautista ([place], [place]) and she had ablation. Was told [...] binding capacity [address] [place] [address]/23/2019: TSH 1.9493609/23/2019 : Mag 2.: D-Diamer <9309408/07/2019 : BNP <0 03/17/20 EKG: Sinus tachycardia (105 bpm), NSST vfqhaww86/5/19 EKG: sinus tachycardia non specific Flat T [...] symptoms with exercise. Echocardiographically negative for ischemia. Sosa treadmill score is 8, which indicated low [...] RISK FOR CARDIAC EVENT. Flavio Trevizo MD [address] [place], [address], [facility] 06/02/2020 11:41:05 OBGyn Episode No OBEpisode recorded.
--- OUTSIDE RECORDS SUMMARY | 2024-12-31 03:01 | XMS_ITS | Encounter Summary ---
Author Organization [facility] Healthcare Address [address] [place] [address] Care Team Providers Care [facility] Counselor Name Role Phone Kenneth Lares MD Primary Care Provider + Isela Menendez NP Primary Care Provider [phone] Reason for Visit * Reason Onset Date Comments spk w/nurse 04/17/2024 Encounter Details Date Type Department Care Team (Late st Contact Info) Description 04/17/[address] [facility] [address] [facility] [address] [place] [address] Francisca Olson MD PhD [address] [facility] [phone] [place] [address] spk w/nurse Social History Tobacco Use Types [...] on file Legal Sex Female 8:52 PM SCAN COORDINATOR Gender Identity Female 07/01/2022 1:00 PM SCAN COORDINATOR Sexual Orientation Straight 07/01/2022 1: 00 PM SCAN COORDINATOR documented as of this encounter Plan of [...] on filedocumented in this encounter Care Teams [facility] Counselor Relationship Specialty Start Date End Date Kenneth Lares MD [address] [address] PCP - General Internal Medicine 11/27/22 10/29/24 Isela Menendez [place] [address] [place] [address] PCP - General Electrical Construction Project Manager 10/30/24 documented as of this encounter
--- OUTSIDE RECORDS SUMMARY | 2024-12-31 03:01 | XMS_ITS | Data Portability ---
Author Organization [facility] Rylee Mata Address [address] [place] [address] Care Team Providers Care Control Systems Technician Name Role Phone LEEANNE ELLIS Gas Appliance Servicer Helper ANTONINA SILVA Filing Or Registry Clerk ZEKE QUINTANA Primary Care Provider Assessment Encounter Date Assessment Date Assessment LastModified by Organization Details LastModified Time 06/24/2023 06/24/2023 Reviewed labwork from 05/31 ER visit, essentially normal. Creatinine 0.85 [email or web address] Not available 06/24/2023 16:44:39 Plan of Treatment Reminders Order Date Submit Date Provider Last Modified By Organization Details Last Modified Time Details Appointments None recorded. Lab urinalysis , dipstick 2023 024 [email or web address] In-Office Order, Internal Use Only DO Not Attach Compendium DO Not Attach Compendium, Do Not Delete/merge, [id number] 4 15:06:47 test, urine 2023 024 [email or web address] 39 In-Office Order, Internal Use Only DO Not Attach Compendium DO Not Attach Compendium, Do Not Delete/merge, [id number] 4 15:06:48 urinalysis , dipstick 2022 023 GIULIA In-Office Order, Internal Use Only DO Not Attach Compendium DO Not Attach Compendium, Do Not Delete/merge, [id number] 3 14:24:40 vitamin B12 + folate, serum or blood 2022 023 GIULIA [facility], [address], [address], [place], [address], 3 03:08:57 CBC w/ auto diff 2022 023 GIULIA [facility], [address], [address], [place], [address], 3 03:08:57 Referral orthopedic surgeon referral 2024 025 J CARLOS Stone, [address] [facility] , [address], [address], 5 16:56:34 gastroente rologist referral 2022 023 [email or web address] Ignacio MD, [address] [place], [address], 4 13:59:08 Procedures None recorded. Surgeries None recorded. Imaging None recorded. Medication Orders phenazopyr idine 200 mg tablet 2023 024 [facility], [address] [place] [address], [address], 4 19:18:19 nitrofuran toin monohydrat e/macrocry stals 100 mg capsule 2023 024 [facility], [address] [place] [address], [address], 4 21:03:31 famotidine 20 mg tablet 2022 023 [facility] [address], [address] [place] [address], [address], 3 19:29:10 Patient TargetsNo targets recorded. Patient Instructions Encounter Date Encounter Id Patient Instructions Last Modified By Organization Details Last Modified Time 03/13/2023 [id number] anemia: care instructions [email or web address] Not available 03/13/2023 17:11:40 Gale, - Thank you for your visit - Continue your current medications - Use medications as directed - See information on FODMAP diet (https://www.[facility].org/health/ dvxrvomz-dnd-vdicefo ion/erfyuy-sses-ptft -vuw-oxzq-cv-know#:~ :text=What%20is%20FO DMAP%3F,the%20small% 20intestine%20absorb s%20poorly.) - I have placed referral to gastroenterology - you should receive a phone call in the next 2 weeks to schedule this(these) appointment(s). - Follow-up with your senior technical manager for ongoing vaginal/endometriosi s concerns - Recheck your blood counts, along with vitamin B12 and folic acid levels, as they may cause anemia and increased MCV if low - Call with any concerns [email or web address] Not available 03/13/2023 17:11:23 05/31/2023 [id number] blood in the uri ne: care instructions [email or web address] Not available 05/31/2023 13:52:11 Gale, - Thank you for your visit - Continue your current medications - Your urinalysis shows blood only, no white blood cells or nitrates (signs of possible infection) - review with urology - they may consider checking for a kidney stone - Call with any concerns [email or web address] Not available 05/31/2023 13:52:02 06/24/2023 [id number] Gale, - Thank you for your visit - Continue your current medications - I am completing your preoperative letter and forwarding to [facility] - Call with any concerns Not available 06/24/2023 16:47:42 10/10/2023 [id number] Gale, - Than k you for your visit - Continue your current medications - Use medications as directed - Call if symptoms persist after 48 hours - I will forward information to your master brewer so they know how to prescribe liquid doxycycline -- remember this medication is contraindicated in - Call with any concerns [email or web address] Not available 10/10/2023 15:07:55 Reason for Referral Loading Machine Adjuster Referral for Chronic nonspecific abdominal pain Referring Physician: Zeke Quintana, [facility], Encounter Date: 03/13/2023 Orthopedic Surgeon Referral for Left tarsal tunnel syndrome Referring Physician: Danielle Walter, [facility], Encounter Date: 11/17/2024 Results Created Date Observation Date Name Description Value Unit Range Abnormal Flag Note LastModifiedBy Organization Detail LastModifiedTime 05/31/2005/31/2023 urina lysis , dipst ick Leukocytes Negati ve Not Available In-Office Order Internal Use Only DO Not Attach Compendium DO Not Attach Compendium, Do Not Delete/merge, [id number] 05/31/2023 13:32:49 05/31/2005/31/2023 urina lysis , dipst ick Nitrite negati ve Not Available In-Office Order Internal Use Only DO Not Attach Compendium DO Not Attach Compendium, Do Not Delete/merge, [id number] 05/31/2023 13:32:49 05/31/2005/31/2023 urina lysis , dipst ick Urobilinogen .2 Not Available In-Of fice Order Internal Use Only DO Not Attach Compendium DO Not Attach Compendium, Do Not Delete/merge, [id number] 05/31/2023 13:32:49 05/31/2005/31/2023 urina lysis , dipst ick Protein 30 Not Available In-Office Order Internal Use Only DO Not Attach Compendium DO Not Attach Compendium, Do Not Delete/merge, [id number] 05/31/2023 13:32:49 05/31/2005/31/2023 urina lysis , dipst ick pH 7.5 Not Available In-Office Order Internal Use Only DO Not Attach Compendium DO Not Attach Compendium, Do Not Delete/merge, [id number] 05/31/2023 13:32:49 05/31/2005/31/2023 urina lysis , dipst ick Blood Modera te Not Available In-Office Order Internal Use Only DO Not Attach Compendium DO Not Attach Compendium, Do Not Delete/merge, [id number] 05/31/2023 13:32:49 05/31/20 23 05/31/2023 urina lysis , dipst ick Specific Cla[place] 1.020 Not Available In-Off ice Order Internal Use Only DO Not Attach Compendium DO Not Attach Compendium, Do Not Delete/merge, [id number] 05/31/2023 13:32:49 05/31/20 23 05/31/2023 urina lysis , dipst ick Ketone Negati ve Not Available In-Office Order Internal Use Only DO Not Attach Compendium DO Not Attach Compendium, Do Not Delete/merge, [id number] 05/31/2023 13:32:49 05/31/20 23 05/31/2023 urina lysis , dipst ick Bilirubin Negati ve Not Available In-Office Order Internal Use Only DO Not Attach Compendium DO Not Attach Compendium, Do Not Delete/merge, [id number] 05/31/2023 13:32:49 05/31/20 23 05/31/2023 urina lysis , dipst ick Glucose Negati ve Not Available In-Office Order Internal Use Only DO Not Attach Compendium DO Not Attach Compendium, Do Not Delete/merge, [id number] 05/31/2023 13:32:49 05/31/20 23 05/31/2023 urina lysis , dipst ick Appearance Clear Not Available In-Offi ce Order Internal Use Only DO Not Attach Compendium DO Not Attach Compendium, Do Not Delete/merge, [id number] 05/31/2023 13:32:49 05/31/20 23 05/31/2023 urina lysis , dipst ick Color Yellow Not Available In-Office Order Internal Use Only DO Not Attach Compendium DO Not Attach Compendium, Do Not Delete/merge, [id number] 05/31/2023 13:32:49 10/10/19 24 10/10/2023 pregn abelino test, urine HCG negati ve Not Available In-Office Order Internal Use Only DO Not Attach Compendium DO Not Attach Compendium, Do Not Delete/merge, 10/10/2023 14:37:27 10/10/19 24 10/10/2023 urina lysis , dipst ick Leukocytes Negati ve Not Available In-Office Order Internal Use Only DO Not Attach Compendium DO Not Attach Compendium, Do Not Delete/merge, [id number] 10/10/2023 12:43:04 10/10/19 24 10/10/2023 urina lysis , dipst ick Nitrite negati ve Not Available In-Office Order Internal Use Only DO Not Attach Compendium DO Not Attach Compendium, Do Not Delete/merge, [id number] 10/10/2023 12:43:04 10/10/19 24 10/10/2023 urina lysis [...] 10/10/2023 urina lysis , dipst ick Specific [place] 1.015 Not Available In-Off ice Order Internal [...] DO Not Attach Compendium, Do Not Delete/merge, [id number] 10/10/2023 12:43:04 10/10/19 24 10/10/2023 urina lysis , dipst ick Glucose Negati ve Not Available In-Office Order Internal Use Only DO Not Attach Compendium DO Not Attach Compendium, Do Not Delete/merge, [id number] 10/10/2023 12:43:04 10/10/19 24 10/10/2023 urina lysis , dipst ick Appearance Clear Not Available In-Offi ce Order Internal Use Only DO Not Attach Compendium DO Not Attach Compendium, Do Not Delete/merge, [id number] 10/10/2023 12:43:04 10/10/19 24 10/10/2023 urina lysis , dipst ick Color Pale Yellow Not Available In-Office Order Internal Use Only DO Not Attach Compendium DO Not Attach Compendium, Do Not Delete/merge, [id number] 10/10/2023 12:43:04 12/06/19 25 12/05/2024 Chori ogona [...] 12/23/2024 16:53:59 12/06/19 25 12/05/2024 Compr ehens lyndesy metab olic 2000 panel - Serum or [...] Not Available 12/23/2024 16:53:59 12/06/19 25 12[facility] [...] Available 12/23/2024 16:53:59 12/06/19 25 12/05/2024 [facility] ehens lyndsey metab olic 1999 panel - [...] ) No observ ation record ed. [email or web address] [facility] [place] [address] [facility] [address], [place], [address], 11/19/2024 21:33:37 Result Notes None recorded. Problems Name Problem SNOMED Code Status Onset Date Resolution Date Notes Provider Name and Address Organization Details Recorded Time Blephari tis of left eyelid 46976340604 9102 Completed 202105/26/2022 Zeke Quintana MD Attn: Phylicia heart,[address] [place], [address], [place] - [place] 2 08:01:50 Impetigo 36271938 Completed 202106/25/2022 Zeke Quintana MD Attn: Phylicia heart,[address] [place], [address], [facility] - [facility] 2 08:02:07 Acne 53663187 Active 2021 Andrea Delarosa null, [place] - [facility] 2 14:24:01 Body mass index 20-24 - normal 760274428 Active 2021 Zeke Quintana MD Attn: Phylicia heart,[address] [facility], [place], [address], [facility] - [facility] 2 08:03:59 Long-ter m drug therapy Active 2021 Zeke Quintana MD Attn: Phylicia heart,[address] [facility], [place], [address], [place] [facility] 2 08:04:27 Endometr iosis (clinica l) 522994453 Completed 202106/25/2022 Zeke Quintana MD Attn: Geemike heart,[address] [facility], [place], [address], [facility] - [facility] 2 08:05:50 Dysmenor lucy 215445469 Completed 202106/25/2022 Zeke Quintana MD Attn: Phylicia heart,[address] [facility], [place], [address], [place] - [facility] 2 08:06:10 Sinoatri al sima reentran t tachycar erwin 931176607 Completed 202106/25/2022 status post ablation 2014 Zeke Quintana MD Attn: Geemike heart,[address] [facility], [place], [address], [place] [facility] 2 08:11:07 History of radiofre quency ablation operatio n for arrhythm ia 060921067 Active 2021 Zeke Quintana MD Attn: Geemike g,[address] [facility], [place], [address], [place] - [facility] 2 08:11:56 Chondrom alacia of left patella 50770822564 9106 Active 2021 Zeke Quintana MD Attn: Geemike g,[address] [facility], [place], [address], [place] [facility] 2 08:13:14 Right flank pain 391202749 Completed 202210/10/2023 Zeke Quintana MD Attn: Geemike heart,[address] [place] [address], [place], [address], [place] [facility] 14:48:37 Acute pelvic pain 178548837 Completed 202210/10/2023 Zeke Quintana MD Attn: Geemike heart,[address] [facility], [place], [address], [place] [facility] 14:47:33 Cyst of ovary 38463516 Completed 202210/10/2023 Zeke Quintana MD Attn: Geemike heart,[address] [facility], [place], [address], [place] [facility] 14:48:18 Vaginal discharg e 113313080 Completed 202210/10/2023 Zeke Quintana MD Attn: Phylicia una,[address] [facility], [place], [address], [place] [facility] 14:48:42 Excessiv e belching 203304333 Completed 202210/10/2023 Zeke Quintana MD Attn: Geemike heart,[address] [facility], [place], [address], [place] [facility] 14:48:23 Abdomina l bloating 138343326 Completed 202210/10/2023 Zeke Quintana MD Attn: Phylicia una,[address] [facility], [place], [address], [place] [facility] 14:47:27 Leukopen ia 15611259 Completed 202210/10/2023 Zeke Quintana MD Attn: Phylicia una,[address] [facility], [place], [address], [place] [facility] 14:48:30 Macrocyt osis 705297033 Active 2022 Zeke Quintana MD Attn: Phylicia heart,[address] [facility], [place], [address], [facility] - SI 4 14:47:14 Anemia 630993302 Completed 202210/10/2023 Zeke Quintana MD Attn: Phylicia haert,[address] [place] [address], [place], [address], [facility] - [facility] 4 14:47:58 Chronic nonspeci fic abdomina l pain 734128951 Active 2022 Zeke Quintana MD Attn: Phylicia heart,[address] [place] [address], [place], [address], [facility] - SI 4 14:48:10 Acute thoracic back pain 552945879 Completed 202210/10/2023 Zeke Quintana MD Attn: Phylicia heart,[address] [facility], [place], [address], [facility] - SI 4 14:47:39 Blood in urine 36263997 Completed 202204/16/2024 Zeke Quintana MD Attn: Phylicia heart,[address] [place] [address], [place], [address], [facility] - SI 4 18:25:55 Acute cystitis 91876646 Completed 202304/16/2024 Zeke Quintana MD Attn: Phylicia heart,[address] [facility], [place], [address], [facility] - SI 4 18:25:48 Problem Notes None recorded. Procedures Surgical History Date Name Laterality Status Provider Name and Address Organization Details Recorded Time Unlisted px lacrimal system completed Barry Loco [facility] 04/13/2022 00:37:22 Imaging Results None recorded. Procedure Notes None recorded. Medical Equipment None Reported. Allergies Allergen ID Allergen Name Allergen Category Reaction Reaction Severity Criticality Documentation Date Start Date Code Code System Note Provider Name and Address Organization Details Recorded Time 992511 latex environme nt,medica tion rash Not available Not available 10/05/2021 19688 91 RxNorm Fidel Montes, COMPOUNDING AND FINISHING SUPERVISOR null, [place] - [facility] 2 16:20:11 475466 Augmentin medicatio n palpitati ons moderate low 05/31/2023 90985 2 RxNorm Zeke Quintana MD Attn: Accountin g,[address] [facility], [place], [place], [address] [place] [address], [place] - [place] 3 13:41:13 251709 cortisone medicatio n Not available Not available low 05/31/2023 2878 RxNorm unkno wn react ion Zeke Quintana MD Attn: Accountin g,[address] [facility], [place], [place], [address] [place] [address] 2, [facility] - SI 3 13:42:06 913875 diltiazem Not available palpitati ons moderate low 05/31/2023 3443 RxNorm Zeke Quintana MD Attn: Accountin g,[address] [facility], [place], [place], [address] [place] [address], [place] 3 13:42:30 450725 erythromy alethea medicatio n palpitati ons moderate low 05/31/2023 4053 RxNorm Zeke Quintana MD Attn: Accountin g,[address] [place], [place], [address] [place] [address] 2, [facility] - SI 3 13:43:14 Medications Name Sig [...] Updated DateTime 4 156.21 cm 27.2 kg/m2 79974.2 9 g 99 % 99 % 82 /min 98 [degF] 130 mm[Hg] 83 mm[Hg] Zita Ureña [place] - [facility] 4 14:29:09 Date Recorded Body height Body mass index (BMI) Body weight Oxygen saturation Oxygen saturation in Arterial blood by Pulse oximetry Heart rate Body temperature Systolic blood pressure Diastolic blood pressure Provider Name and Address Organization Details Last Updated DateTime 5 156.21 cm 27 kg/m2 46450.8 9 g 97 % 97 % 100 /min 97.5 [degF] 119 mm[Hg] 88 mm[Hg] Zita Ureña MA [facility] 5 10:50:49 Date Recorded Body height Body mass index (BMI) Body weight Body temperature Oxygen saturation Oxygen saturation in Arterial blood by Pulse oximetry Heart rate Systolic blood pressure Diastolic blood pressure Provider Name and Address Organization Details Last Updated DateTime 3 156.21 cm 27.5 kg/m2 11772.3 7 g 99.1 [degF] 98 % 98 % 101 /min 129 mm[Hg] 83 mm[Hg] Zita Ureña MA [facility] - [facility] 3 16:15:15 Date Recorded Body height Body temperature Oxygen saturation Oxygen saturation in Arterial blood by Pulse oximetry Heart rate Systolic blood pressure Diastolic blood pressure Provider Name and Address Organization Details Last Updated DateTime 3 156.21 cm 98.7 [degF] 96 % 96 % 86 /min 139 mm[Hg] 81 mm[Hg] Hari Damian MA [facility] - [facility] 3 13:03:33 Date Recorded Body height Body mass index (BMI) Body weight Oxygen saturation Oxygen saturation in Arterial blood by Pulse oximetry Heart rate Body temperature Systolic blood pressure Diastolic blood pressure Provider Name and Address Organization Details Last Updated DateTime 3 156.21 cm 26.5 kg/m2 76767.8 7 g 95 % 95 % 116 /min 98 [degF] 143 mm[Hg] 85 mm[Hg] Zita Ureña MA [facility] - [facility] 3 15:42:42 Social History Question [...] anxious, or unable to sleep at night)? [id number] Information not available 10/10/2023 Family History Nothing [...] SNOMED-CT Code Diagnosis ICD10 Code Diagnosis Note [id number] [facility] [address] [address] 10/05/2021 16:01:31 10/09/2021 09:33:18 Chondromalacia of left patella 4522568109 70765 M22.42 Acute, unresolved . MRI on 09/28 showing chondromal acia of patella. Will start PT on 10/06. 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 Follows [facility] . Not currently on medication . There seems to be confusion on which medication s she should be on. Tachycardi c today, in office, but asymptomat ic.- Discussed with patient to call to discuss medication s with cardiologi st [id number] Jonh Bui MD [facility] [address] [address] 11/09/2021 16:44:41 11/10/2021 11:54:46 Acute urinary tract infection 868135632 N39.0 Acute- Symptomati c, UA with Leukocyte esterasePl an- Keflex 500 mg QID x 5 days- Follow up as directed for recurrent UTIs- Consider swab for BV if symptoms persist Tachycardia 4835134 R00. 0 Noted on VS, but not on physical exam. Likely error with initial vital signs. [id number] Cristobal Stewart MD [facility] 47 3 [facility] [address] [place] [address] 03/01/2022 13:58:47 03/05/2022 11:40:46 Intolerant of heat 55727255 R20.8 Acute. Self reported subjective fever last [...] each of constipati on and diarrhea Dysmenorrhea 867732444 N 94.6 Chronic. Cyclic. Hx of endometrio [...] she states is beneficial Low back pain 296264010 M54.50 Chronic low back pain. Pain has [...] home exercises to strengthen lower back Constipation 57214483 K5 9.00 - Discussed increased hydration and fiber [id number] MARY WHITNEY DO [place] [address] [address] 04/10/2022 17:02:46 04/13/2022 13:37:09 Blepharitis of left eyelid 3661081443 77172 H01.006 DDx includes blephariti s vs stye [...] F/u w/ PCP in 1mo, sooner PRN. [id number] Pratibha Kimbrough MD [place] [address] [address] 05/22/2022 10:19:51 05/28/2022 13:17:50 Impetigo 08160696 L01.00 Acute, likely secondary to excoriatio ns of acne and moisture from face mask.- Topical mupirocin Acne 80086322 L70.9 Chronic, possible hormonal acne based on chin distributi on and worse with menstrual cycles. Using some kind of OTC treatment but not sure what.- Advised to use gentle cleanser and moisturize r- Consider adapalene once current irritation is resolved- f/u with PCP Ankle pain 358184940 M25 .579 Acute on chronic, suspect very mild sprain of left ankle superimpos ed on chronic Achilles insertiona l tendinopat hy.- Provided with handout for Achilles tendinopat hy stretches/ exercises- Patient declines PT- f/u with PCP [id number] Zeke Quintana MD [facility] [address] [facility] [address] [place] [address] 08/23/2022 11:36:19 08/24/2022 11:02:44 Right flank pain 656864250 R10.9 - symptoms suggestive of upper urinary tract infection, despite negative urinalysis - send urine for culture- empiric treatment with ciprofloxa alethea, phenazopyr idine Acute pelvic pain 753023 005 R10.2 given symptoms and history of ovarian cysts, will order pelvic ultrasound , complete Cyst of ovary 89797579 N 83.659 [id number] Zeke Quintana MD [facility] [address] [place] [address] 11/05/2022 13:27:47 11/05/2022 15:45:37 Overweight 884532477 E66.3 Bilateral ankle joint pain 8080281895 9078537 M25.571 M25.572 with history of ankle injuries [...] s injury and refer back to her parking enforcement specialist she has seen before Tolu Wallis. She states he wanted to get MRI of the foot, but then in another sentence said he referred her to a chiropract or because it wasn't a foot problem. Very difficult historian. [id number] Zeke Quintana MD [facility] [address] [place] [address] 03/13/2023 15:30:57 03/27/2023 11:00:46 Vaginal discharge 608562023 N89.8 Encouraged continued use of clindamyci n to completion Follow up with gynecology for ongoing issues Excessive belching 5035263 2000 R14.2 unclear ideology, patient may need esophagoga stroduoden oscopytrea t with H2 joseluis initially and monitor for improvemen t Abdominal bloating 82563 9008 R14.0 - encouraged use of over-the-c ounter symptom treatment medication including simethicon e Leukopenia 02092194 D72. 819 very mildly decreased, possible variationa l normalNo clear evidence of acute infection, consider repeat lab work in one month Macrocytosis 138888975 D 75.89 repeat labwork, check vitamin B 12 and folic acid levels Anemia 702176698 D64.9 Chronic no nspecific abdominal pain 191210657 R10.9 given prolonged symptoms, Will refer to gastroente rology for additional ration [id number] Zeke Quintana MD [facility] [address] [place] [address] 05/31/2023 12:23:34 06/03/2023 11:44:37 Acute thoracic back pain 754198354 M54.6 - differenti al diagnosis includes musculoske letal, genitourin nilsa, and neurologic potential sources- await urology visit Blood in urine 49894409 R31.9 + blood, no nitrates or leukocyte esterase in urinalysis - to see urology at 2 p.m. - defer culture, additional imaging to them- current symptoms not strongly suggestive of renal colic, nor sciatica- unclear etiology for hematuria [id number] Zeke Quintana MD [facility] [address] [place] [address] 06/24/2023 15:16:41 06/25/2023 09:47:17 Pre-surgery evaluation 363065279 Z01.818 Presently clinically stable for scheduled surgery [...] call with any changes in present status [id number] Zeke Quintana MD [facility] [address] [place] [address] 10/10/2023 14:03:35 10/14/2023 14:02:34 Urinary symptoms 691349050 R39.9 # UTI, uncomplica mary jane Urine [...] voices understand ing and agreement with plan [id number] Angelina Porras MD [facility] [address] [facility] [address] 11/17/2024 10:08:39 11/18/2024 10:48:48 Left tarsal tunnel syndrome 6872314061 57055 G57.52 signature ortho is out?? [facility] is out, [facility] is out (not treated well with Dr. Falk). [facility] but thinks that [facility] also turned down her case, but will try. Has two upcoming appt with different podiatry groups for opinions as well. I explained at least 3 times that as long as she is still seeking further definitive treatment by ortho and/or podiatry, until she decides that she is finished and at her fci baseline, and I have those recommenda tions and records by a parking enforcement specialist , I will only provide temporary [...] ID Guarantor Name 03/13/2023 1 [place] (PPO) [id number] Sreedhar Floyd [id number] 55 Gale Reedlarney 05/31/2023 1 [employer] Sreedhar Floyd [id number] Gale McAlarney 06/24/2023 1 [employer] Sreedhar Floyd [id number] 55 Gale McAlarney 10/10/2023 1 [employer] Sreedhar Floyd [id number] 55 Gale McAlarney 11/17/2024 1 [employer] Sreedhar Floyd [id number] 55 Gale McAlarcarmen Notes Date Note Type [...] follow-up from recent emergency department visit to [facility] on 03/08/23, with complaint of vaginal bleeding [...] and she has since spoken with her senior technical manager regarding this and has been started on [...] in HPI. All other systems reviewed and negative.-Weather Reporter/Nursing note reviewed.- Zeke Quintana MD Attn: Accounting,[address] [facility], [place], [address], [place] [facility] 03/26/2023 19:39:12 3 text/html [...] requesting follow-up urinalysis after being seen at [facility] Emergency Department on - treated for urinary [...] All other systems reviewed and negative. - Weather Reporter/Nursing note reviewed. - Zeke Quintana MD Attn: Accounting,[address] [facility], [place], [address], [facility] 05/31/2023 14:00:07 3 text/html PREOPERATIVE [...] palpitations during the last six months - [facility] sent letter of cardiac clearance Pertinent past medical, surgical, family and social history reviewed and updated as needed. Pertinent positives and negatives as noted in HPI. All other systems reviewed and negative. - Weather Reporter/Nursing note reviewed. - Zeke Quintana MD Attn: Accounting,[address] [facility], [place], [address], [facility] 06/24/2023 16:59:21 4 text/html Urinary [...] All other systems reviewed and negative. - Weather Reporter/Nursing note reviewed. - Zeke Quintana MD Attn: Accounting,[address] [facility], [place], [address], [facility] 10/10/2023 15:23:08 5 text/html pt said that [...] parking placard. SAIDA Soria Attn: Accounting,[address] [facility], [place], [address], [facility] 11/17/2024 14:04:46 OBGyn Episode No OBEpisode recorded.
--- OUTSIDE RECORDS SUMMARY | 2024-12-31 03:01 | XMS_ITS | Encounter Summary ---
Author Organization [facility] Address [address] [place] [address] Care Team Providers Care Trial Justice Name Role Phone Kenneth Lares MD Primary Care Provider + Isela Menendez NP Primary Care Provider [phone] Reason for Visit * Reason Onset Date Comments PCP Callback Request - Patient 06/10/2024 pls call referring doctor 06/10/2024 Encounter Details Date Type Department Care Team (Late st Contact Info) Description 06/10/2024 Telephone [facility] [address] [facility] [address] [place] [address] Francisca Olson MD PhD [address] [facility] [address] [facility] [phone] [place] [address] PCP Callback Request - Patient; pls call [...] on file Legal Sex Female 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
--- OUTSIDE RECORDS SUMMARY | 2024-12-31 03:01 | XMS_ITS | Clinical Summary ---
Author Organization [facility] Address [address] [place] [address] Care Team Providers Care Gum Maker Name Role Phone Elio Thomas MD Primary Care Provider Source Comments [facility],non-owned Affiliates and Associated Physician Practices is amultiple site organization consisting of ambulatory clinics and hospital sitesin [place], [place], [place] and [place]. This disclosure is being madepursuant to the Care Everywhere program and may not contain all information available regarding this patient. 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 Gender Identity Not on file Sexual Orientation Not on file Plan of Treatment Health Maintenance Due Date Last Done Comments PAP SMEAR 1989 HIV SCREENING 2004 DTAP/TDAP/TD VACCINES (1 - Tdap) 2008 HEPATITIS B VACCINE (1 of 3 - 19+ 3-dose series) 2008 COVID-19 VACCINE (2023-2 5 season) 2024 10/27/2020, 10/06/2020 DEPRESSION SCREENING 07/29/2024 INFLUENZA VACCINE (Season Ended) 2025 10/16/2019 ZOSTER VACCINE (1 of 2) 2039 HEPATITIS C SCREENING Completed 01/21/2022 HIB VACCINE Aged Out No longer eligi ble based on patient's age to complete this topic HPV VACCINE Aged Out No longer eligi ble based on patient's age to complete this topic MENINGOCOCCAL (Group B) VACCINE SHARED DECISION-MAKING Aged Out No longer eligible based on patient's age to complete this topic MENINGOCOCCAL GROUPS A/C/Y/W VACCINE Aged Out No longer eligible b ased on patient's age to complete this topic PNEUMOCOCCAL VACCINE Aged Out No long er eligible based on patient's age to complete this topic Insurance [place] [address] Care Teams Gum Maker Relationship Specialty Start Date End Date Elio Thomas MD [address] [facility] [place] [address] PCP - General 03/05/22
--- OUTSIDE RECORDS SUMMARY | 2024-12-31 03:01 | XMS_ITS | Encounter Summary ---
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
[2024-12-31] MEDS: LACTATED RINGERS 1,000 ML 30 ML IV CONT ×2 (06:30→09:32)
--- NOTE | 2024-12-31 06:34 | WPDHPUPDATE1 ---
History and Physical Update Update Date/Time: 12/31/24 06:34 History and Physical has been reviewed, including an updated exam of the patient. There are NO changes in the patient's condition. Risks, benefits, and alternatives have been discussed and questions answered. Patient agrees to proceed with procedure.
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
[2024-12-31] MEDS: KETOROLAC 15 MG/ML VIAL (*BKC) IV PUSH (07:42)
[2024-12-31] MEDS: SCOPOLAMINE 1 MG PATCH 1 PATCH TRANSDERM (07:43)
[2024-12-31 07:48] LABS: BEDSIDEPREGUCG Negative (Negative)
--- NOTE | 2024-12-31 09:20 | S_PTH ---
PATIENT: Gale Floyd LOC: [facility]#:[id number] AGE/SX: 34/F ROOM: RE12/31/[address]: Daniel House MD : 1990 BED: DIS: 12/31/2024 SPEC #: [id number] RECD: 12/31/24 10:16 STATUS: [place] REQ #: [id number] ANGELICA: 12/31/24 09:[address]: Daniel Ruby DEPT: [facility] Surgical RECD BY: Adriana Carrasquillo ENTERED: 12/31/24 10:16 SP TYPE: Surgical OTHR DR: UNKNOWN,DOCTOR Tissues: A - Endometrial Curettings Procedures: Hematoxylin and Eosin Stain Gross and Microscopic Level 4
--- NOTE | 2024-12-31 09:25 | P.OP_ITS ---
Procedure Note - Detailed Date of Procedure 12/31/24 Pre-op Diagnosis pel pain Irg Bleed, Dyspareunia, Endometriosis Post-op Diagnosis Same Procedure Performed Laparoscopy with destruction of endometriosis hysteroscopy/dilatation/chromope rtubation Surgeon Daniel House MD Anesthesia General Indications 34-year-old female severe excessive irregular bleeding Findings Multiple areas of powder burn endometriosis along the right left uterosacral ligament. Excessive amount of scarring from previous peritoneal biopsies cul-de-sac. Ovaries appeared within normal limits. The right fallopian tube was open left fallopian tube failed to past fluid. Normal-appearing liver edge gallbladder and appendix. Description of Procedure Patient is prepped draped normal sterile fashion placed in dorsal lithotomy position. Under excellent general endotracheal anesthesia weighted speculum placed in posterior fornix vagina. Anterior lip of cervix grasped with single- tooth tenaculum there was a fair amount of the tissue extruding from the cervix and this was removed to be used for specimen later. The weighted speculum was removed and bladder emptied cleared. The gloves were changed. Infraumbilical incision made the Veress needle passed in. Filled with CO2 gas to 15mm. The 5mm trocar advanced under direct visualization with the opts coping no injury seen. Patient placed in Trendelenburg and a suprapubic incision made. The 5mm trocar advanced under visualization assuring 20cc of serosanguineous fluid was seen and this was suction irrigated. The ovaries appeared grossly within limits as did the tubes the uterus was irregular. The peritoneal stripping left a marked amount of scar tissue in cul-de-sac. The small areas of endometriosis along right left uterosacral ligament cul-de-sac point cauterized at 35 w per 2nd. Chromopertubation was then undertaken and the fluid did flow through the right fallopian tube easily the left fallopian tube appeared within normal limits but after a couple attempts that procedure was terminated irrigation undertaken until clear. Photo documentation undertaken the appendix gallbladder and liver edge. No other abnormalities were seen. The lower site removed. The gas removed from the abdomen. The upper site removed. The incisions closed with 4 Monocryl glue. Attention was turned to the hysteroscopy. The uterus was irregular regular and the cervix was had extruding tissue this was removed gently and the uterus sounded to7.5cm. The fetus hysteroscope was inserted and no abnormality seen. Uterus scraped over Danyell entire 360? until good grating sound was heard. The instruments were withdrawn the patient was awakened. She went recovery in satisfactory condition. All sponge, needle, instrument counts were correct. There were no immediate complications Estimated Blood Loss 25 Drains No Packing No Pathology Yes Complications No immediate complications Condition Stable Disposition PACU
[2024-12-31] MEDS: diphenhydrAMINE HCl INJ 50 MG/ML VIAL 25 MG IV PUSH (10:30)
== END 2024-12-31 10:55 | disposition home or self-care (01) ==
PROVIDERS: Visit Provider Obstetrics & Gynecology
PROC: 0UDB8ZZ Extraction of Endometrium, Via Natural or Artificial Opening Endoscopic (ICD-10-PCS; CPT 58558; principal; 2024-12-31 08:30)
DX: N80.3C3 Endometriosis of bilateral uterosacral ligament(s), unspecified depth (principal); N93.9 Abnormal uterine and vaginal bleeding, unspecified; R10.2 Pelvic and perineal pain; N94.10 Unspecified dyspareunia; N97.1 Female infertility of tubal origin
CPT/HCPCS: 58662; 58558; 88305; A9270; J1100; J1200; J1885; J2003; J2250; J2405; J2704; J3010; J7120